=== PATIENT | male | born 1955 | race Caucasian/White ===

== ENCOUNTER 2024-04-27 11:28 | Emergency (ER) | payer MEDICARE, BC, SELFPAY ==
[2024-04-27 11:30] VITALS: BP 124/88
[2024-04-27 11:53] LABS: % Eosinophils 2.9 % (0-6); % Immature Granulocytes 0.5 % (0-0.5); % Lymphocytes 24.7 % (20.5-51.1); % Monocytes 8.1 % (1.7-9.3); % Neutrophils 62.8 % (42.2-75.2); Absolute Basophils 0.1 10^3/uL (0-0.2); Absolute Eosinophils 0.2 10^3/uL (0-0.7); Absolute Lymphocytes 1.4 10^3/uL (1.2-3.4); Absolute Monocytes 0.5 10^3/uL (0.1-0.6); Absolute Neutrophils 3.6 10^3/uL (1.4-6.5); Hemoglobin 9.2 g/dL (13.0-18.0); Mean Corp Hgb Conc. 32.9 g/dL (33.0-37.0); Mean Corpuscular Hgb 28.6 pg (27.0-31.0); Mean Platelet Volume 10.1 fL (7.4-10.4); Nucleated Red Blood Cells % 0 % (-); Platelet Count 203 10^3/uL (130-400); Red Blood Cell Count 3.22 10^6/uL (4.70-6.10); Red Cell Dist. Width 14.3 % (11.5-14.5); White Blood Cell Count 5.8 10^3/uL (4.8-10.8)
--- NOTE | 2024-04-27 12:13 | ED.GENMED ---
History of Present Illness
General
Chief Complaint: Male Genito-Urinary Symptoms
Source: patient
Exam Limitations: none
Time Seen by Provider: 04/27/24 11:53
Nursing documentation reviewed up to this point in time: agreed with
History of Present Illness
History of Present Illness:
69 Y/O M
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
afib on eliquis
here with painless hematuria since yesterdya
started just looking concentrated but then turned to blood this morning
no clots
h/o anemia, i spoke with Rn at [facility] who said his hg was 8.3 on 04/14
pt has no urologic history that is known
no abdominal pain, vomiting, diarrhea, cp, sob, retention
Past History
Past History
ED Past Medical History: Arrthythmia, GERD, HTN, Hypercholesterolemia and Other (renal failure)
Social History
Tobacco: Non-smoker
Alcohol: None
Review of Systems
Review of Systems
Allergies reviewed?: Yes
All Other Systems: Not applicable
Phy Exam
Physical Exam
Physical Exam:
GENERAL: Alert , in no apparent distress
EYE: pupils equal and reactive pale
NECK: Supple
ENT: o/p clr, mmm.
CARDIAC: Regular rate and rhythm .
LUNGS: Clear breath sounds bilaterally, no acute respiratory distress, no wheezes/rales/rhonchi
ABDOMEN: Soft, without focal tenderness, no r/g, no cvat, normal bowel sounds
, normal inspection
Hematuria no clots
NEUROLOGICAL: Alert and oriented, no focal neuro deficits
SKIN: Warm and dry, skin intact.
MUSCULOSKELETAL: Right BKA
PSYCH: Normal and appropriate interaction.
Course
Orders/Labs/Results
Orders:
Orders
04/27/24 11:40
Complete Blood Count/With Diff Urgent
04/27/24 12:07
CT Abd/pel Without Iv Or Oral Urgent
Comment:
Reason For Exam: HEMATURIA
04/27/24 12:15
Comprehensive Metabolic Panel Urgent
Urinalysis Reflex To Culture Urgent
Date Specimen was Collected: 04/27/24
Time Specimen was Collected: 11:38
Urine Microscopic Reflex Cult Urgent
04/27/24 16:28
0.9% Sodium Chloride 500 ml [Nss] 500 ml IV BOLUS
Abnormal Lab Results
04/27/24 04/27/24
11:40 12:15
RBC 3.22 L 10^6/uL
(4.70-6.10)
Hgb 9.2 L g/dL
(13.0-18.0)
Hct 28.0 L %
(39.0-52.0)
MCHC 32.9 L g/dL
(33.0-37.0)
BUN 25 H mg/dl
(9-20)
Glucose 133 H mg/dl
(70-99)
Calcium 8.1 L mg/dl
(8.4-10.2)
Albumin 2.9 L g/dl
(3.5-5.0)
Ur Occult Blood Reflex 4+ A
(Negative)
Leukocyte Esterase Rfl Trace A
(Negative)
Urine RBC >100 A /HPF
(0-2)
Urine Bacteria (Reflex) Few A
(Negative)
Urine Albumin (Reflex) 3+ A
(Neg - Trace)
04/27/24 11:40
04/27/24 12:15
Vital Signs
Initial and Last Documented VS:
Initial Vital Signs
Temp Pulse Resp BP Pulse Ox
36.3 C 90 18 124/88 99
04/27/24 11:30 04/27/24 11:30 04/27/24 11:30 04/27/24 11:30 04/27/24 11:30
Last Documented Vital Signs
Temp Pulse Resp BP Pulse Ox
36.3 C 80 18 121/76 100
04/27/24 11:30 04/27/24 13:30 04/27/24 11:30 04/27/24 18:00 04/27/24 18:00
MDM/Problems Addressed
Differential Diagnosis Includes:
kidney stone, uti, bladder ca,
MDM/Problems Addressed:
69 y/o M
h/o afib, sroke, chf, cad, CKD
here with gross hematuria since last night
no clots
on eliquis
no pain
no vomiting
stable vitals
pale but h/o anemia and hg today is 9.2 which is better than 8.3 from 04/14/24
urine looks like dark blood, thicker, without clots, not really translucent
and PVR is [address]
CT is:
High attenuation density within the renal collecting system and renal pelves bilaterally as well as layering high attenuation density in the urinary bladder most likely representing staghorn-type renal calculi small layering urinary bladder calculi,
without accompanying renal collecting system dilatation. Other etiologies such as high attenuation excreted fluid (unlikely hemorrhage) cannot be differentiated.
Diffuse thickening of the wall the urinary bladder most likely due to underdistention. Other etiology such as cystitis cannot be excluded.
pt has ruinated a few times and PVR is < 100
he has no pain or clots
no bump in cr
d/w dr abbasi who did not recommend phillips since pt is not in clot retention
recommended holding eliquis if possible for 3 dyas
will need outpatient cysto
the bladder stones do not require urgent removla
i spoke with RN at the faciliy and she will relay to the PMD;
*Critical Care Note
Total Time (30-74mins, 75-104mins- exclusive of procedures): Not Applicable
ED Attending Note
-
Portions of this chart may have been created with voice recognition software.� Occasional wrong word or��sound alike� substitutions may have occurred due to the inherent limitations of voice recognition software.
Discharge Plan
Departure
Patient Disposition: Home (Routine Discharge)
Patient with high blood pressure during this ER visit?: No
Condition: Fair
Covid-19: Not Applicable
Discharge Problem:
Hematuria
Instructions: Blood in Urine (Hematuria), Adult ED
Referrals:
Adonay Abbasi MD [Active] - Follow up in 5-7 days
Lukasz Gant MD [Family Provider] - Follow up in 2-3 days
Activity Restrictions/Additional Instructions:
HIS HEMOGLOBIN WAS 9.2 WHICH IS HIGHER THAN 2 WEEKS AGO
HOLD HIS ELIQUIS (IF THE PRIMARY DOCTOR JUANA IS OK WITH IT) FOR 3 DAYS TO SEE IF THE BLOOD CLEARS
THERE WAS NO SIGN OF INFECTION
HE IS NOT RETAINING URINE
HE HAS SOME LAYERING STONES IN HIS BLADDER
HE WILL NEED TO SEE UROLOGIST
WATCH HIM CLOSELY: REPEAT HIS CBC IN 24 HOURS.
IF HE DROPS RETURN
IF HE GOES INTO URINARY RETENTION - RETURN (SCAN HIS BLADDER AFTER VOIDING)
RETURN SOONER OR ANY CONCERNS.
Interventions
Interventions:
*Risk Screen - Suicide Last Done: 04/27/24 11:37
*General Assessment Last Done: 04/27/24 11:36
*Neglect/Abuse Screening Last Done: 04/27/24 11:37
ED- Fall Risk Assessment Last Done: 04/27/24 11:52
*ED COVID-19 Vaccine History Last Done: 04/27/24 11:36
*Nursing Disposition Last Done: 04/27/24 18:41
ED-Male Genitourinary Assessment Last Done: 04/27/24 11:52
Discharge Date and Time
Discharge Date/Time: 04/27/24 18:44
Print Language: WELSH
[2024-04-27 12:27] LABS: Urine Albumin 3+ (Neg - Trace); Urine Bilirubin Negative (Negative); Urine Character Bloody (Clear); Urine Color Brown; Urine Glucose Negative (Negative); Urine Ketone Negative (Negative); Urine Leukocyte Trace (Negative); Urine Nitrite Negative (Negative); Urine Occult Blood 4+ (Negative); Urine Urobilinogen Negative (Neg - 1+)
[2024-04-27 12:46] LABS: Urine Squamous Cell 0-2 /LPF (Few)
[2024-04-27 12:47] LABS: Urine Bacteria Few (Negative); Urine Red Blood Cell >100 /HPF (0-2); Urine White Cell 0-2 /HPF (0-5)
[2024-04-27 12:49] LABS: ALT (SGPT) 11 U/L (0-50); AST (SGOT) 19 U/L (17-59); Albumin 2.9 g/dl (3.5-5.0); Alkaline Phosphatase 102 U/L (38-126); Blood Urea Nitrogen 25 mg/dl (9-20); Calcium 8.1 mg/dl (8.4-10.2); Carbon Dioxide 27 mmol/L (22-30); Chloride 106 mmol/L (98-107); Glucose 133 mg/dl (70-99); Potassium 3.8 mmol/L (3.5-5.1); Sodium 140 mmol/L (135-145); Total Bilirubin 0.6 mg/dl (0.2-1.3); Total Protein 6.3 g/dl (6.3-8.2); eGFR > 60.00
[2024-04-27 13:00] VITALS: BP 102/69
[2024-04-27 16:10] VITALS: BP 109/68
[2024-04-27] MEDS: NSS 500 IV (16:42)
[2024-04-27 16:47] VITALS: BMI 33.5
[2024-04-27 17:00] VITALS: BP 112/69
[2024-04-27 18:00] VITALS: BP 121/76
== END 2024-04-27 18:44 | disposition home or self-care (01) ==
LOC: EMR 11:28
PROVIDERS: EMERGENCY PHYSICIAN Emergency Medicine; FAMILY PHYSICIAN Internal Medicine
DX: R31.9 Hematuria, unspecified (principal); E11.22 Type 2 diabetes mellitus with diabetic chronic kidney disease; I13.0 Hypertensive heart and chronic kidney disease with heart failure and stage 1 through stage 4 chronic kidney disease, or unspecified chronic kidney disease; I50.9 Heart failure, unspecified; I48.91 Unspecified atrial fibrillation; E78.00 Pure hypercholesterolemia, unspecified; K21.9 Gastro-esophageal reflux disease without esophagitis; N18.9 Chronic kidney disease, unspecified; Z79.01 Long term (current) use of anticoagulants; Z86.73 Personal history of transient ischemic attack (TIA), and cerebral infarction without residual deficits; Z89.511 Acquired absence of right leg below knee
CPT/HCPCS: 99284; 96360; 74176; 80053; 81003; 81015; 85025

== ENCOUNTER 2024-04-29 22:27 | Inpatient (IN) | payer BC, MEDICARE, SELFPAY ==
[2024-04-29 19:05] VITALS: BP 110/83
[2024-04-29 19:22] VITALS: BP 110/83
[2024-04-29 19:23] VITALS: BMI 28.1
[2024-04-29 19:46] LABS: % Basophils 0.5 % (0-2); % Eosinophils 3.4 % (0-6); % Immature Granulocytes 0.5 % (0-0.5); % Lymphocytes 21.2 % (20.5-51.1); % Monocytes 6.9 % (1.7-9.3); % Neutrophils 67.5 % (42.2-75.2); Absolute Eosinophils 0.2 10^3/uL (0-0.7); Absolute Lymphocytes 1.2 10^3/uL (1.2-3.4); Absolute Monocytes 0.4 10^3/uL (0.1-0.6); Absolute Neutrophils 3.7 10^3/uL (1.4-6.5); Hematocrit 24.7 % (39.0-52.0); Hemoglobin 8.2 g/dL (13.0-18.0); Mean Corp Hgb Conc. 33.2 g/dL (33.0-37.0); Mean Corpuscular Hgb 29.4 pg (27.0-31.0); Mean Corpuscular Volume 88.5 fL (80.0-94.0); Nucleated Red Blood Cells % 0 % (-); Platelet Count 193 10^3/uL (130-400); Red Blood Cell Count 2.79 10^6/uL (4.70-6.10); Red Cell Dist. Width 14.2 % (11.5-14.5); White Blood Cell Count 5.5 10^3/uL (4.8-10.8)
[2024-04-29 20:00] VITALS: BP 117/82
--- NOTE | 2024-04-29 20:03 | ED.GENMED ---
History of Present Illness
General
Chief Complaint: Abnormal Lab Value
Source: patient, ambulance crew, detention and detention records
Time Seen by Provider: 04/29/24 19:18
History of Present Illness
History of Present Illness:
69-year-old male with history of IDDM, R BKA, A-fib on Eliquis, CVA, CHF, CAD, CKD was here on 04/27/2024 for hematuria. At that time the RN at detention said his hemoglobin on 04/14 was 8.3.
Patient was here 2 days ago for painless hematuria and his hemoglobin was 9.2. Dr. Abbasi was consulted at that time and pt was to be scheduled for out pt cystoscopy. Eliquis has been held since that visit. Pt denies CP, SOB, abdominal pain,
dysuria. He was to have repeat blood work in 2 days which was today and it is reported that Hgb today was 7.6 so sent here.
Past History
Past History
ED Past Medical History: Arrthythmia, GERD, HTN, Hypercholesterolemia and Other (renal failure)
Social History
Tobacco: Non-smoker
Alcohol: None
Personal:
Living: detention
Review of Systems
Review of Systems
Allergies reviewed?: Yes
All Other Systems: ROS reviewed and negative except as documented in HPI and ROS
Constitutional: Denies fever or chills
Respiratory: Denies trouble breathing
Cardiac: Denies chest pain
ABD/GI: Denies abdominal pain, nausea, vomiting or diarrhea
: Reports dark urine; Denies dysuria, flank pain, incontinence or difficulty voiding
Musculoskeletal: Reports other (R BKA)
Phy Exam
Physical Exam
Physical Exam:
GENERAL: No acute distress. A&Ox3.
CONSTITUTIONAL: Afebrile.
EYES: clear, conjunctivae normal
ENMT: moist mucus membranes, Pharynx nl, speaks in a whisper
RESPIRATORY: Regular respirations, nonlabored, lungs clear.
CARDIOVASCULAR: Regular rate and rhythm, no murmurs, no rubs.
GI: Soft, nontender, normal BS
Rectal: Light brown soft stool, hematest positive
MUSCULOSKELETAL: Right BKA, limited movement/deconditioned. No edema well perfused.
SKIN: Warm, dry, pale
PSYCH: Normal mood and affect. Well kept, interactive and appropriate
NEUROLOGIC: Awake, alert and oriented. No focal neurological deficits
Course
Orders/Labs/Results
Orders:
Orders
04/29/24 19:39
Type And Crossmatch [Type+Screen] Urgent
Complete Blood Count/With Diff Urgent
Comprehensive Metabolic Panel Urgent
04/29/24 20:16
Bladder Scan- Treatment ONCE
04/29/24 20:19
ABO2 Urgent
BBK Wristband Number:
Associate notified that ABO2 has been ordered: [id number]
Date: 04/29/24
Time: 20:04
Dental Director ID: [id number]
Abnormal Lab Results
04/29/24
19:39
RBC 2.79 L 10^6/uL
(4.70-6.10)
Hgb 8.2 L g/dL
(13.0-18.0)
Hct 24.7 L %
(39.0-52.0)
BUN 36 H mg/dl
(9-20)
Creatinine 1.5 H mg/dL
(0.7-1.3)
Glucose 155 H mg/dl
(70-99)
Calcium 8.1 L mg/dl
(8.4-10.2)
Total Protein 6.0 L g/dl
(6.3-8.2)
Albumin 2.7 L g/dl
(3.5-5.0)
04/29/24 19:39
04/29/24 19:39
Vital Signs
Initial and Last Documented VS:
Initial Vital Signs
Temp Pulse Resp BP Pulse Ox
98.0 F 96 28 110/83 99
04/29/24 19:05 04/29/24 19:05 04/29/24 19:05 04/29/24 19:05 04/29/24 19:05
Last Documented Vital Signs
Temp Pulse Resp BP Pulse Ox
98.0 F 97 20 110/83 99
04/29/24 19:05 04/29/24 19:22 04/29/24 19:22 04/29/24 19:22 04/29/24 19:23
MDM/Problems Addressed
Differential Diagnosis Includes:
bladder malignancy, kidney stone
GI bleed
MDM/Problems Addressed:
69-year-old male with history of A-fib on Eliquis, CVA, CHF, CAD, IDDM, R BKA, CKD was here on 04/27/2024 for hematuria. At that time the RN at detention said his hemoglobin on 04/14 was 8.3.
Patient was here 2 days ago for painless hematuria and his hemoglobin was 9.2. Dr. Abbasi was consulted at that time and pt was to be scheduled for out pt cystoscopy. Eliquis has been held since that visit. Pt denies CP, SOB, abdominal pain,
dysuria. He was to have repeat blood work in 2 days which was today and it is reported that Hgb today was 7.6 so sent here.
Pt voided 100 ml dark reddish brown urine
Post void bladder scan:
CBC: Hgb 8.2 (down 2 gms from 2 days ago) otherwise unremarkable
CMP: BUN/creat 36/1.5 up from normal 2 days ago
9:00 p.m.
Rectal: Brown heme + stool
Blood consent signed and scanned into chart
Plan: Admit: GI bleed, hematuria (Eliquis has been held past 2 days)
Hospitalist notified of admission . Pt is stable.
*Critical Care Note
Total Time (30-74mins, 75-104mins- exclusive of procedures): Not Applicable
ED Attending Note
-
Portions of this chart may have been created with voice recognition software.� Occasional wrong word or��sound alike� substitutions may have occurred due to the inherent limitations of voice recognition software.
Discharge Plan
Departure
Patient Disposition: Admit
Date of Disposition: 04/29/24
Time of Disposition: 21:10
Presentation/result/management discussed w/ accepting MD/DO: Hospitalist
Condition: Fair
Discharge Problem:
Hematuria, GI bleed
Referrals:
Lukasz Gant MD [Family Provider] -
Interventions
Interventions:
*Risk Screen - Suicide Last Done: 04/29/24 19:23
*General Assessment Last Done: 04/29/24 19:23
*Neglect/Abuse Screening Last Done: 04/29/24 19:23
ED- Fall Risk Assessment Last Done: 04/29/24 19:23
*ED COVID-19 Vaccine History Last Done: 04/29/24 19:23
Discharge Date and Time
Print Language: SAMMARINESE
[2024-04-29 20:11] LABS: ALT (SGPT) 12 U/L (0-50); AST (SGOT) 20 U/L (17-59); Albumin 2.7 g/dl (3.5-5.0); Alkaline Phosphatase 94 U/L (38-126); Blood Urea Nitrogen 36 mg/dl (9-20); Calcium 8.1 mg/dl (8.4-10.2); Carbon Dioxide 26 mmol/L (22-30); Chloride 104 mmol/L (98-107); Estimated Creatinine Clearance 59 ml/min; Glucose 155 mg/dl (70-99); Potassium 3.9 mmol/L (3.5-5.1); Sodium 135 mmol/L (135-145); Total Bilirubin 0.4 mg/dl (0.2-1.3); eGFR 50.71
[2024-04-29 21:00] VITALS: BP 128/84
[2024-04-29 22:00] VITALS: BP 129/93
--- NOTE | 2024-04-29 22:18 | HPS.HSE ---
Family Physician
-
Family Physician: Lukasz Gant
Chief Complaint
-
Abnormal Labs, Dark Urine
History of Present Illness
Patient is a 69y M with PMH significant for CVA with L weakness, R BKA 10 months ago and A-Fib / Flutter who presents to ED for evaluation of continued dark urine and abnormal labs. History obtained from patient and ED / [place] records. Patient
underwent R BKA about 10 months ago - he thinks maybe this was done at [facility]. He has since been in rehab at [facility]. He states that he has had loose stools that entire time - though he reports 0-2 bowel movements per day. These are
soft or loose in nature. No gross blood or dark / tarry stools.
For the past 2 weeks, patient states that his urine has appeared dark. Over the past several days it has looked 'like coffee'. He presented to the ED here on 04/[address] scan suggesting bilateral staghorn calculi and bladder stones.
It was recommended that patient hold his Eliquis and follow-up with Urology as an outpatient.
Patient notes that he has continued to pass very dark appearing urine. He had repeat labs done this AM showing lower Hgb and was sent back to for further evaluation.
He denies any abdominal pain, flank pain, dysuria, etc.
He denies any fevers / chills.
No other current complaints or concerns.
Note that patient had baseline labs done on 04/14/24. His Hgb at that time was 8.3 g/dL. Hgb during prior ED visit was 9.2. Outpatient labs today with Hgb = 7.6. Repeat in ED this evening = 8.2.
Medical History
Past Medical History
Past Medical History: Reports Other
Additional Past Medical History:
Hypertension
ASCVD
Left Hemiparesis s/p CVA
GERD
Paroxysmal A-Fib / Flutter
CKD III
CHF - Unknown Type
DM-II
Psychiatric Disorder - Unspecified
Past Surgical History: Reports Other
Additional Past Surgical History:
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
A-Fib / Flutter Ablation
Appendectomy
ORIF LUE
Right Knee Arthroscopy
Social History
Tobacco: Non-smoker
Alcohol: None
Drug: None
Family History
Family History: Not pertinent
Allergies / Home Medications
Allergies reflects when Allergies were last updated in [facility].
Home Medications with original date entered in [facility]
Allergy/Medication List:
Allergies
Allergy/AdvReac Type Severity Reaction Status Date / Time
Penicillins Allergy Swelling Verified 04/29/24 21:30
Home Medications
acetaminophen 325 mg tablet (Tylenol) 650 mg PO Q4H PRN Temp > 100, mild pain 04/29/24
ammonium lactate 12 % lotion (AmLactin) 1 applic topical DAILY 04/29/24
apixaban 5 mg tablet (Eliquis) 5 mg PO BID 04/29/24
aripiprazole 10 mg tablet (Abilify) 10 mg PO HS 04/29/24
atorvastatin 40 mg tablet 40 mg PO HS 04/29/24
fluticasone propionate 50 mcg/actuation nasal spray,suspension 1 spray intranasal DAILY 04/29/24
insulin glargine 100 unit/mL (3 mL) subcutaneous pen 10 unit SC QPM 04/29/24
insulin lispro 100 unit/mL subcutaneous pen 1 sliding scale dose SC DIRECTED 04/29/24
loperamide 2 mg tablet (Imodium A-D) 2 mg PO Q6H PRN Diarrhea 04/29/24
losartan 50 mg tablet 50 mg PO DAILY 04/29/24
metoprolol tartrate 25 mg tablet 25 mg PO BID 04/29/24
multivitamin 1 tab PO DAILY 04/29/24
pantoprazole 40 mg tablet,delayed release 40 mg PO BID 04/29/24
thiamine HCl (vitamin B1) 100 mg tablet 200 mg PO DAILY 04/29/24
ticagrelor 90 mg tablet 90 mg PO BID 04/29/24
zinc oxide 10 % topical ointment 1 applic topical TID 04/29/24
Review of Systems
-
History Source: Patient
A 12 point ROS was completed and negative except as noted: Yes
Constitutional: Denies Fever or Chills
EENT: Reports Sore Throat and Other (loss of voice)
Respiratory: Denies Cough or Trouble Breathing
Cardiac: Denies Chest Pain or Palpitations
Abdomen/GI: Reports Diarrhea; Denies Abdominal Pain, Nausea, Vomiting, Bloody Stools or Black Stools
: Denies Dysuria, Frequency or Flank Pain
Neurological: Reports Weakness; Denies Dizzy or Headache
Physical Exam
Vital Signs
Vital Signs
Temp Pulse Resp BP Pulse Ox
98.0 F 97 20 110/83 99
04/29/24 19:05 04/29/24 19:22 04/29/24 19:22 04/29/24 19:22 04/29/24 19:23
Physical Exam
General: Other (69y M in no acute distress. Mild pallor.)
HEENT: Moist mucous membranes and PERRLA
Respiratory: Clear and Other (Few rales at R base. Otherwise clear.)
Cardiac: S1/S2, Regular Rhythm (with ectopy.) and Murmur (II/ LELAND)
GI: Soft, Non Tender, Non Distended and Normal Bowel Sounds
Musculoskeletal: No Clubbing, No Cyanosis and Other (R BKA stump well-appearing. LLE with chronic venous stasis skin changes / discloration. 1+ edema at ankle.)
Neuro: AO x 3 and Other (L weakness - chronic / unchanged per patient.)
Laboratory Results
-
04/29/24 19:39
04/29/24 19:39
Laboratory Results
Total Bilirubin 0.4 mg/dl (0.2-1.3) 04/29/24 19:39
AST 20 U/L (17-59) 04/29/24 19:39
ALT 12 U/L (0-50) 04/29/24 19:39
Alkaline Phosphatase 94 U/L (38-126) 04/29/24 19:39
Impression/Plan
-
A/P: Patient is a 69y M with PMH significant for ASCVD / prior CVA, HTN, DM-II and R BKA who presents to ED for evaluation of hematuria / anemia.
Blood Loss Anemia - Subacute
- Admit for further evaluation and treatment.
- Note that his Hgb has remained largely stable over the past month with values ranging from 7.6 to 9.2.
- Currently 8.2 which is unchanged from initial outpatient labs done 04/14.
- Patient with evident hematuria with dark / brown colored urine. No flank pain, etc.
- CT done 04/27 reviewed. ? stone burden versus blood products layering in bladder / bilateral collecting systems?
- Also noted to be hemoccult positive in the ED today and has evidence of bleeding / oozing from needle stick sites, small abrasions, etc.
- Continue to hold Eliquis.
- Would also hold ticagrelor acutely given ongoing bleeding.
- Follow H&H and consider transfusion if indicated (consent on chart).
- Check PT / PTT and consider Heme evaluation if bleeding issues persist off of antiplatelet / anticoagulant medications.
Hematuria / Kidney Stones
- CT scan as noted above.
- Urology evaluation for additional recommendations.
- Check renal US for further evaluation.
Heme Positive Stool
- Not clear to what extent this is contributing to his anemia.
- Address issues as noted above and continue to monitor H&H.
- Eventual GI evaluation likely reasonable.
CHRISTOPH on CKD III
- Unclear baseline renal function with SCr values varying from 1.22 to 1.77 over the past month.
- Currently 1.5.
- Hold losartan acutely.
- IVFs overnight and follow for changes.
Paroxysmal Atrial Fibrillation / Flutter
- Patient states that he has had an ablation in the recent past - though he is not certain where this was done.
- Hold Eliquis given bleeding as noted above.
- Monitor on telemetry.
- Continue metoprolol.
ASCVD / CVA
- Stable. No new neurologic deficits.
- Holding ticagrelor acutely given bleeding as noted above.
- Continue BP control, statin, etc.
- Follow for any new clinical changes.
DM-II
- Stable. Hold standing medications acutely.
- Follow glucose and cover with SSI as needed.
- Update A1C.
s/p R BKA
- Presumably due to osteomyelitis.
- Appears to be well-healed with no evidence of skin breakdown, infection, etc.
DVT Prophylaxis: SCD to the LLE. Avoid pharmacologic therapy given bleeding.
Code Status: DNR per NH record, POLST, etc.
[2024-04-29 23:00] VITALS: BP 135/91
[2024-04-30] VITALS (9 sets, daily range): BP systolic 118–147; BP diastolic 77–99; BMI 27.2; BMI 27.5
[2024-04-30] MEDS: LR 1000 IV ×2 (03:25→15:36)
--- NOTE | 2024-04-30 04:01 | W.PN.UPDATE ---
Update Note
Progress Note Update
Patient has decided he wants to be resuscitated. DNR changed to Full code.
[2024-04-30 07:19] LABS: Hematocrit 24.9 % (39.0-52.0); Hemoglobin 8.2 g/dL (13.0-18.0); Mean Corp Hgb Conc. 32.9 g/dL (33.0-37.0); Mean Corpuscular Hgb 28.7 pg (27.0-31.0); Mean Corpuscular Volume 87.1 fL (80.0-94.0); Mean Platelet Volume 10.3 fL (7.4-10.4); Platelet Count 202 10^3/uL (130-400); Red Blood Cell Count 2.86 10^6/uL (4.70-6.10); Red Cell Dist. Width 14.1 % (11.5-14.5); White Blood Cell Count 5.9 10^3/uL (4.8-10.8)
[2024-04-30 07:29] LABS: INR 1.24; PT 15.9 Sec (11.4-14.6)
[2024-04-30 07:30] LABS: APTT 38.2 Sec (23.4-35.0)
[2024-04-30 07:55] LABS: Blood Urea Nitrogen 34 mg/dl (9-20); Calcium 8.3 mg/dl (8.4-10.2); Carbon Dioxide 23 mmol/L (22-30); Chloride 106 mmol/L (98-107); Estimated Creatinine Clearance 59 ml/min; Glucose 129 mg/dl (70-99); Iron 55 ug/dl (49-181); Potassium 3.7 mmol/L (3.5-5.1); Sodium 138 mmol/L (135-145); eGFR 50.71
[2024-04-30 08:04] LABS: Percent Saturation 31 % (20-50); Total Iron Binding Capacity 174 ug/dl (261-462)
[2024-04-30] MEDS: LOPRESSOR 25 MG PO ×2 (08:56→20:10)
[2024-04-30] MEDS: VITAMIN B1 200 MG PO (08:56)
[2024-04-30 08:57] LABS: Glucose - Point of Care 137 mg/dl (70-99)
--- NOTE | 2024-04-30 10:40 | CM ---
CM following re: discharge planning.
Reviewed pt's chart, met with pt and spoke to pt's spouse Carolyn over the phone.
Pt is a 69 year old male, admitted with primary dx of Blood Loss Anemia.
Pt is not a great historian, information obtained from pt's spouse Carolyn. 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 Per spouse, a plan is for pt to return back to [facility]
SNF for a LTC when medically stable.
CM spoke to [facility] SN[facility] liaison and she confirmed that pt is a LTC resident, on bed hold and pt will be accepted back when medically stable.
PCP: Lukasz Gant
Pharmacy: [facility]
D/C plan: return back to [facility] for a termite control representative care.
CM will follow with discharge plan updates as hospitalization progresses
--- NOTE | 2024-04-30 11:09 | W.PN.HOSP.TC ---
Addendum entered and electronically signed by Karl Rouse MD 04/30/24 13:37:
No surgical intervention at this time as per urology. Will restart diet. Check hemoglobin in the morning. Continue to hold Eliquis and Brilinta. Likely discharge in 24-48 hours depending on hemoglobin/recurrent bleeding.
Original Note:
Today's Communication/Plan
-
see bold
Assessment / Plan
Assessment / Plan
69y M with PMH significant for ASCVD / prior CVA, HTN, DM-II and R BKA who presents to ED for evaluation of hematuria / anemia.
Gen: NAD, Awake and alert, appears chronically ill
Eyes: EOMI, PERRLA, no scleral icterus.
Neck: supple.
CV: RRR, +S1/S2, no m/r/g.
Resp: CTAB, no rales, wheezes, or rhonchi.
Abd: +BS, soft, NT, ND
Skin: No rashes.
Neuro: CN 2-12 intact, non-focal.
Psych: Normal mood and affect.
CT A/P 04/27/24: High attenuation density within the renal collecting system and renal pelves bilaterally as well as layering high attenuation density in the urinary bladder most likely representing staghorn-type renal calculi small layering urinary
bladder calculi, without accompanying renal collecting system dilatation. Other etiologies such as high attenuation excreted fluid (unlikely hemorrhage) cannot be differentiated. Diffuse thickening of the wall the urinary bladder most likely due to
underdistention. Other etiology such as cystitis cannot be excluded. Likely scratch that included portions of the right lower chest likely representing partially calcified pleural thickening and accompanying tiny possibly loculated pleural effusion.
Renal U/S:
1. Bilateral nonobstructing renal calculi as described. No almaz hydronephrosis.
2. Layering debris within the urinary bladder. Bladder calculi are not excluded.
Subacute Blood Loss Anemia:
-Hb has remained largely stable over the past month with values ranging from 7.6 to 9.2. Hb stable. Cont to trend Hb.
-Patient with evident hematuria with dark / brown colored urine. No flank pain, etc.
-Eliquis and Brilinta contributed to subacute blood loss anemia. Eliquis has been on hold since prior ED visit 04/27/24. Brilinta held on admission.
-CT A/P above: ? stone burden versus blood products layering in bladder / bilateral collecting systems?
-Renal U/S without hydro
-also noted to be Hemoccult positive in the ED 04/29/24 and has evidence of bleeding / oozing from needle stick sites, small abrasions, etc.
-c/s Uro and, depending on Uro's eval, may need to c/s GI
Paroxysmal Atrial Fibrillation/Flutter:
-Patient states that he has had an ablation in the recent past - though he is not certain where this was done.
-Holding Eliquis as above
-cont BB
Other problems:
CAD: Brilinta on hold with subacute blood loss anemia. cont statin/BB
h/o CVA: Brilinta on hold with subacute blood loss anemia. cont statin.
DM2: check a1c, SSI/accuchecks
CKD3a (CHRISTOPH has been ruled out)
s/p R BKA, presumably due to osteomyelitis.
DVT Prophylaxis: SCD to the LLE. Avoid pharmacologic therapy given bleeding.
FULL CODE
Total time spent on today's encounter was 50 minutes which included time spent in counseling the patient/family regarding diagnosis and treatment plan as listed above, goals of care, and symptom management. Case was discussed with nursing staff,
specialists, and care coordinators/case management. All labs and imaging personally reviewed by me. Remainder the time spent in detailed review of previous records, lab data, imaging, and other medical provider documentation.
Anticipated Discharge: > 48 hours
Subjective/Interval History
-
Date of Service: April 30, 2024
No new complaints.
Objective Data
-
Labs:
Laboratory Results
04/30/24
06:54
WBC 5.9
Hgb 8.2 L
Hct 24.9 L
Plt Count 202
PT 15.9 H
INR 1.24
APTT 38.2 H
Sodium 138
Potassium 3.7
Chloride 106
Carbon Dioxide 23
BUN 34 H
Creatinine 1.5 H
Glucose 129 H
Calcium 8.3 L
Vital Signs:
Vital Signs
Temp Pulse Resp BP Pulse Ox
97.4 F 81 16 139/77 99
04/30/24 07:40 04/30/24 08:56 04/30/24 07:40 04/30/24 08:56 04/30/24 07:40
I&O
04/29/24 04/30/24 05/01/24
06:59 06:59 06:59
Output Total 125 / 125
Balance -125 / -125
[2024-04-30 13:22] LABS: Glycohemoglobin (HgbA1c) 6.2 % (4.0-5.6)
[2024-04-30 13:24] LABS: Glucose - Point of Care 121 mg/dl (70-99)
--- NOTE | 2024-04-30 13:32 | CONS.URO ---
Consultation
-
Performing Provider: Marysol
Reason for Consultation: Hematuria
Medical History
History of Present Illness
69M with past urologic hx of kidney stones
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
For the past 2 weeks, patient states that his urine has appeared dark. Over the past several days it has looked 'like coffee'
He presented to the ED on 04/[address] scan suggesting bilateral staghorn calculi and bladder stones
It was recommended that patient hold his Eliquis and follow-up with Urology as an outpatient.
Ticagrelor was not stopped
Patient notes that he has continued to pass very dark appearing urine. He had repeat labs done this AM showing lower Hgb and was sent back to for further evaluation.
He denies any abdominal pain, flank pain, dysuria, etc.
He denies any fevers / chills.
No other current complaints or concerns.
Note that patient had baseline labs done on 04/14/24. His Hgb at that time was 8.3 g/dL. Hgb during prior ED visit was 9.2. Outpatient labs today with Hgb = 7.6. Repeat in ED last night = 8.2.
As of this morning patient notes improved color of urine
Past Medical History
Past Medical History: Other (as above)
Past Surgical History: Orthopedic
Social History
Alcohol: None
Drug: None
Living: Senior Living
Family History
Family History: Reviewed & Not Pertinent
Allergies/Home Medications
Allergies
Allergy/AdvReac Type Severity Reaction Status Date / Time
Penicillins Allergy Swelling Verified 04/29/24 21:30
Home Medications
�Medication �Instructions �Recorded �Confirmed �Type
acetaminophen 325 mg tablet 650 mg PO Q4H PRN Temp > 100, mild 04/29/24 04/29/24 History
(Tylenol) pain
ammonium lactate 12 % lotion 1 applic topical DAILY DRY SKIN 04/29/24 04/29/24 History
(AmLactin)
apixaban 5 mg tablet (Eliquis) 5 mg PO BID Blood Clot 04/29/24 04/29/24 History
Prevention/Tx
aripiprazole 10 mg tablet (Abilify) 10 mg PO HS Mental Health/Anxiety 04/29/24 04/29/24 History
atorvastatin 40 mg tablet 40 mg PO HS High Cholesterol 04/29/24 04/29/24 History
fluticasone propionate 50 1 spray intranasal DAILY Congestion 04/29/24 04/29/24 History
mcg/actuation nasal
spray,suspension
insulin glargine 100 unit/mL (3 10 unit SC QPM Diabetes 04/29/24 04/29/24 History
mL) subcutaneous pen
insulin lispro 100 unit/mL 1 sliding scale dose SC 04/29/24 04/29/24 History
subcutaneous pen DIRECTED Diabetes
loperamide 2 mg tablet (Imodium 2 mg PO Q6H PRN Diarrhea 04/29/24 04/29/24 History
A-D)
losartan 50 mg tablet 50 mg PO DAILY Blood Pressure 04/29/24 04/29/24 History
metoprolol tartrate 25 mg tablet 25 mg PO BID Blood Pressure 04/29/24 04/29/24 History
multivitamin 1 tab PO DAILY Supplement 04/29/24 04/29/24 History
pantoprazole 40 mg tablet,delayed 40 mg PO BID GERD 04/29/24 04/29/24 History
release
thiamine HCl (vitamin B1) 100 mg 200 mg PO DAILY Supplement 04/29/24 04/29/24 History
tablet
ticagrelor 90 mg tablet 90 mg PO BID Blood Clot 04/29/24 04/29/24 History
Prevention/Tx
zinc oxide 10 % topical ointment 1 applic topical TID Skin Issues 04/29/24 04/29/24 History
Physical Exam
Vital Signs
Vital Signs
Temp Pulse Resp BP Pulse Ox
98.2 F 96 18 131/84 99
04/30/24 11:25 04/30/24 11:25 04/30/24 11:25 04/30/24 11:25 04/30/24 11:25
Lab / Testing Results
Laboratory Results
04/30/24 06:54
04/30/24 06:54
Physical Exam
General: Well Developed, Well Nourished and No Apparent Distress
Respiratory: Clear and Non Labored Respirations
GI: Soft, Non Tender and Non Distended
Neuro: AO x 3
Psych: Calm and Intact Judgement
Assessment / Plan
-
69M with gross hematuria of unclear source
CT showing possible bilateral staghorn renal stones and dependent bladder debris vs stones
Chronic anemia and admitted for fluctuating hemoglobin
- Low suspicion for significant active bleeding - stable HGB which is at his baseline from 04/14, as well as no visible bright red blood in urine at any time
- Persistent dark urine suggests lysing/breakdown of clot from a prior bleeding episode
- Densities on CT may be stones in kidneys and bladder vs dense calcified debris given dependent nature
- Will need eventual cystoscopy and bilateral ureteroscopy to evaluate bladder and kidneys for source of hematuria and clear stones
- Hold all blood thinners/antiplatelet for 1 week
- Outpatient follow up to arrange surgery
- No hydronephrosis to suggest obstruction as a cause of CHRISTOPH
- Moderate urinary retention 200cc is likely chronic, without symptoms that are bothersome to patient
- Trend renal function
[2024-04-30 16:19] LABS: Glucose - Point of Care 144 mg/dl (70-99)
[2024-04-30] MEDS: NOVOLOG FLEXPEN-LOW RESISTANCE SC (16:19)
[2024-04-30] MEDS: ABILIFY 10 MG PO (20:16)
[2024-04-30] MEDS: LIPITOR 40 MG PO (20:16)
[2024-04-30 21:10] LABS: Glucose - Point of Care 224 mg/dl (70-99)
[2024-05-01] VITALS (8 sets, daily range): BP systolic 144–173; BP diastolic 73–108; BMI 27.5
--- NOTE | 2024-05-01 00:08 | PTCARENOTE ---
Pt changed code status on 04/30/24 to Full Code from DNR. Purple bracelet removed.
[2024-05-01] MEDS: LR 1000 IV ×3 (00:40→17:34)
--- NOTE | 2024-05-01 06:04 | PTCARENOTE ---
Patient refusing to be turned and changed throughout most of the shift, verbally abusive to staff. Tells staff to leave him 'the fuck alone and get away' from him. Patient found dry heaving around 0400. Spitting up small amounts of clear emesis. Pt
refused any medications to alleviate the N/V. Pt found to have large amounts of liquid stools as well. TRANSIT BUS DRIVER aware. Placed an Urgent order for Norovirus by PCR. Nursing surgical supervisor and staff aware. Call perez is within reach.
[2024-05-01 07:15] LABS: Glucose - Point of Care 222 mg/dl (70-99)
--- NOTE | 2024-05-01 07:59 | W.PN.HOSP.TC ---
Today's Communication/Plan
-
see bold
Assessment / Plan
Assessment / Plan
69y M with PMH significant for ASCVD / prior CVA, HTN, DM-II and R BKA who presents to ED for evaluation of hematuria / anemia.
Gen: NAD, Awake and alert, appears chronically ill
Eyes: EOMI, PERRLA, no scleral icterus.
Neck: supple.
CV: Tachycardic, irregularly irregular, +S1/S2, no m/r/g.
Resp: CTAB anteriorly, no rales, wheezes, or rhonchi.
Abd: Remains +BS, soft, NT, ND
Skin: No rashes.
Neuro: CN 2-12 intact, non-focal.
Psych: Normal mood and affect.
CT A/P 04/27/24: High attenuation density within the renal collecting system and renal pelves bilaterally as well as layering high attenuation density in the urinary bladder most likely representing staghorn-type renal calculi small layering urinary
bladder calculi, without accompanying renal collecting system dilatation. Other etiologies such as high attenuation excreted fluid (unlikely hemorrhage) cannot be differentiated. Diffuse thickening of the wall the urinary bladder most likely due to
underdistention. Other etiology such as cystitis cannot be excluded. Likely scratch that included portions of the right lower chest likely representing partially calcified pleural thickening and accompanying tiny possibly loculated pleural effusion.
Renal U/S:
1. Bilateral nonobstructing renal calculi as described. No almaz hydronephrosis.
2. Layering debris within the urinary bladder. Bladder calculi are not excluded.
Subacute Blood Loss Anemia:
-Hb has remained largely stable over the past month with values ranging from 7.6 to 9.2. Hb stable. Cont to trend Hb.
-Patient with evident hematuria with dark / brown colored urine. No flank pain, etc.
-Eliquis and Brilinta contributed to subacute blood loss anemia. Eliquis has been on hold since prior ED visit 04/27/24. Brilinta held on admission.
-CT A/P above, findings unlikely hemorrhage
-Renal U/S without hydro
-also noted to be Hemoccult positive in the ED 04/29/24 and has evidence of bleeding / oozing from needle stick sites, small abrasions, etc.
-Urology does not recommend any surgical intervention at this time
-with coronary stenting (pt's states July or August 2023, unsure of where it was done but she thinks [facility]') will restart Brilinta and assess for recurrent/worsening hematuria. Records have been requested.
Paroxysmal Atrial Fibrillation/Flutter:
-Patient states that he has had an ablation in the recent past - though he is not certain where this was done.
-Holding Eliquis as above
-cont BB
Other problems:
CAD: Brilinta on hold with subacute blood loss anemia. cont statin/BB
h/o CVA: Brilinta was on hold with subacute blood loss anemia, restart as above. cont statin.
DM2: a1c 6.2%, SSI/accuchecks
CKD3a (CHRISTOPH has been ruled out)
s/p R BKA, presumably due to osteomyelitis.
DVT Prophylaxis: SCD to the LLE. Avoid pharmacologic therapy given bleeding.
FULL CODE
Total time spent on today's encounter was 51 minutes which included time spent in counseling the patient/family regarding diagnosis and treatment plan as listed above, goals of care, and symptom management. Case was discussed with nursing staff,
specialists, and care coordinators/case management. All labs and imaging personally reviewed by me. Remainder the time spent in detailed review of previous records, lab data, imaging, and other medical provider documentation.
Anticipated Discharge: 24 - 48 hours
Subjective/Interval History
-
Date of Service: May 01, 2024
Patient is a very poor historian. He states he is been vomiting but nursing states he has been spitting up saliva and mucus. 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
Objective Data
-
Vital Signs:
Vital Signs
Temp Pulse Resp BP Pulse Ox
98.0 F 96 18 144/90 99
05/01/24 03:27 05/01/24 03:27 05/01/24 03:27 05/01/24 04:07 05/01/24 03:27
I&O
04/30/24 05/01/24 05/02/24
06:59 06:59 06:59
Intake Total 2640 / 2640
Output Total 125 / 125
Balance 2515 / 2515
[2024-05-01] MEDS: VITAMIN B1 200 MG PO (09:00)
[2024-05-01] MEDS: BRILINTA 90 MG PO ×2 (09:00→21:04)
[2024-05-01] MEDS: LOPRESSOR 25 MG PO ×2 (09:00→21:05)
[2024-05-01 09:14] LABS: Glucose - Point of Care 230 mg/dl (70-99)
[2024-05-01] MEDS: NOVOLOG FLEXPEN-LOW RESISTANCE 2 UNITS SC ×3 (09:16→17:35)
--- NOTE | 2024-05-01 09:27 | PTCARENOTE ---
Pt. with brown liquid emesis at 0910, pt. reports 8 episodes of vomiting since last night. Dr. Rouse made aware. Pt. refusing to have brief changed and to be washed up at this time. No new orders at this time.
[2024-05-01] MEDS: ZOFRAN 4 MG IV ×2 (10:12→18:05)
--- NOTE | 2024-05-01 10:15 | PTCARENOTE ---
Pt. c/o n/v, zofran given as ordered. Pt. with multiple episodes of brown liquid emesis. Will continue to monitor and report on pt.
--- NOTE | 2024-05-01 11:05 | PTCARENOTE ---
Pt. n/v improved post administration of Zofran. Pt. incontinent of loose brown BM. Pt. cleansed, repositioned and stool specimen sent as ordered.
--- NOTE | 2024-05-01 11:31 | W.PN.URO.CBU ---
Today's Communication / Plan
-
Hold all blood thinners/antiplatelet for 1 week if acceptable risk
Outpatient follow up to arrange cystoscopy and bilateral ureteroscopy with clearance of staghorn renal stones vs dependent debris
Assessment / Plan
-
69M with gross hematuria of unclear source
CT showing possible bilateral staghorn renal stones and dependent bladder debris vs stones
Chronic anemia and admitted for dropping hemoglobin, though appears stable on labs done same day as admission
- Low suspicion for significant active bleeding - stable HGB which is at his baseline from 04/14, as well as no visible bright red blood in urine at any time
- Persistent dark urine suggests lysing/breakdown of clot from a prior bleeding episode
- Urine continues to clear as of 05/01
- Densities on CT may be stones in kidneys and bladder vs dense calcified debris given dependent nature
- Will need eventual cystoscopy and bilateral ureteroscopy to evaluate bladder and kidneys for source of hematuria and clear stones
- Hold all blood thinners/antiplatelet for 1 week if acceptable risk
- Outpatient follow up to arrange surgery
- No hydronephrosis to suggest obstruction as a cause of CHRISTOPH. Renal US 04/30 after start of CHRISTOPH again showed no hydronephrosis
- Moderate urinary retention 200cc is likely chronic, without symptoms that are bothersome to patient
- Trend renal function
Diagnosis
-
Date of Service: May 01, 2024
-
Patient Diagnosis:
Gross hematuria
Bladder stones vs calcified debris
Staghorn kidney stones vs calcified debris
Chronic anemia
Post Op Day:
Subjective
-
Hematuria resolved, patient reports continued clearing of urine and looks more yellow today
Some nausea/vomiting today
Objective
-
Vital Signs
Temp Pulse Resp BP Pulse Ox
97.9 F 104 14 169/108 95
05/01/24 09:19 05/01/24 09:19 05/01/24 07:30 05/01/24 09:19 05/01/24 07:30
Intake and Output
04/30/24 05/01/24 05/02/24
06:59 06:59 06:59
Intake Total 2640 / 2640
Output Total 125 / 125
Balance 2515 / 2515
Intake:
Oral fluids 340 / 340
IV fluids (Total) 2300 / 2300
Output:
Urine, Voided 125 / 125
Other:
How many times incontinent 2
SATURATED amount urine
Laboratory Results
04/30/24 06:54
04/30/24 06:54
Physical Exam
-
General - well developed, well nourished, no acute distress
Chest - clear
Abdomen - soft, non-tender
No CVAT
--- NOTE | 2024-05-01 12:09 | PTCARENOTE ---
Pt. b/p elevated 160/104 hr 108 while resting in bed, Dr. Rouse made aware. No new orders at this time.
[2024-05-01 12:10] LABS: Glucose - Point of Care 244 mg/dl (70-99)
--- NOTE | 2024-05-01 14:00 | PTCARENOTE ---
Received patient from [facility]. Patient oriented and flat. Patient c/o nausea and just vomited. Patient incontinent of large loose stool. Patient turned with assist x2. Call perez in reach.
--- NOTE | 2024-05-01 14:15 | PTCARENOTE ---
Pt. transferred to [facility], report given to ALMA Stein. All belongings sent with pt.
[2024-05-01 17:33] LABS: Glucose - Point of Care 229 mg/dl (70-99)
--- NOTE | 2024-05-01 18:19 | PTCARENOTE ---
Patient c/o nausea, refusing to eat dinner. Zofran given.
[2024-05-01] MEDS: ABILIFY 10 MG PO (21:05)
[2024-05-01] MEDS: LIPITOR 40 MG PO (21:05)
[2024-05-01 21:24] LABS: Glucose - Point of Care 182 mg/dl (70-99)
[2024-05-02] VITALS (8 sets, daily range): BP systolic 125–152; BP diastolic 71–105; BMI 28.3; BMI 28.7
[2024-05-02] MEDS: LR 1000 IV ×2 (03:19→13:10)
[2024-05-02 08:32] LABS: Glucose - Point of Care 202 mg/dl (70-99)
--- NOTE | 2024-05-02 09:01 | W.PN.HOSP.TC ---
Today's Communication/Plan
-
see bold
Assessment / Plan
Assessment / Plan
69y M with PMH significant for ASCVD / prior CVA, HTN, DM-II and R BKA who presents to ED for evaluation of hematuria / anemia.
Sepsis
Acute hypoxic respiratory failure
-05/02 Developed fever, leukocytosis, with hypoxia requiring 6 L of oxygen
-Covid/flu neg
-Check UA, chest CT, blood cultures
-Start empiric zosyn and doxy
-Transfer to IMU
CHRISTOPH on stage IIIa CKD
-Cr 2.0, was 1.5
-Check postvoid residual, avoid nephrotoxic drugs/NSAIDs
Subacute Blood Loss Anemia
-Hb has remained largely stable over the past month with values ranging from 7.6 to 9.2. Hb stable. Cont to trend Hb.
-Patient with evident hematuria with dark / brown colored urine. No flank pain, etc.
-Eliquis and Brilinta contributed to subacute blood loss anemia. Eliquis has been on hold since prior ED visit 04/27/24. Brilinta held on admission, resumed 05/[address] A/P above, findings unlikely hemorrhage
-Renal U/S without hydro
-Also noted to be Hemoccult positive in the ED 04/29/24 and has evidence of bleeding / oozing from needle stick sites, small abrasions, etc.
-Urology does not recommend any surgical intervention at this time
-With coronary stenting (pt's states August 2023 poss at [facility]) Brilinta resumed 05/01 AM with no recurrence of hematuria
Paroxysmal Atrial Fibrillation/Flutter:
-Patient states that he has had an ablation in the recent past - though he is not certain where this was done.
-Holding Eliquis as above
-Cont BB
Subacute bilateral upper extremity tremors
-Present for 2 months per
-Consult neurology
Recent norovirus gastroenteritis
-Tested positive for norovirus 1/26
-Continue supportive care
Other problems:
CAD: Brilinta/statin/BB
h/o CVA: Brilinta/ statin.
DM2: a1c 6.2%, SSI/accuchecks
S/p R BKA, presumably due to osteomyelitis.
DVT Prophylaxis: SCD to the LLE. Avoid pharmacologic therapy given bleeding.
Full Code
Dispo: from [facility]
Updated on phone 05/02
Total time spent to see the patient on the floor, examine the patient, review data and lab results, discuss treatment plan with patient, nursing staff around 55 minutes.
Physical exam
Gen: NAD, Awake and alert, appears chronically ill
Eyes: EOMI, PERRLA, no scleral icterus.
Neck: supple.
CV: Tachycardic, irregularly irregular, +S1/S2, no m/r/g.
Resp: CTAB anteriorly, no rales, wheezes, or rhonchi.
Abd: Remains +BS, soft, NT, ND
Skin: No rashes.
Msk: R BKA noted
Msk: Bilateral shaking of upper extremities
Anticipated Discharge: > 48 hours
Subjective/Interval History
-
Date of Service: May 02, 2024
Patient complained of dry heaving in the morning. No vomiting. After being seen on rounds, he developed a fever and became hypoxic, currently on 15 L nonrebreather. Denies chest pain, denies shortness of breath, denies coughing.
Objective Data
-
Vital Signs:
Vital Signs
Temp Pulse Resp BP Pulse Ox
98.2 F 124 20 150/105 93
05/02/24 07:35 05/02/24 07:35 05/02/24 07:35 05/02/24 07:35 05/02/24 07:35
I&O
05/01/24 05/02/24 05/03/24
06:59 06:59 06:59
Intake Total 2640 / 2640 1180 / 1180
Output Total 125 / 125
Balance 2515 / 2515 1180 / 1180
[2024-05-02] MEDS: BRILINTA 90 MG PO ×2 (09:36→20:21)
[2024-05-02] MEDS: LOPRESSOR 25 MG PO ×2 (09:37→20:20)
[2024-05-02] MEDS: VITAMIN B1 200 MG PO (09:41)
[2024-05-02] MEDS: NOVOLOG FLEXPEN-LOW RESISTANCE 2 UNITS SC ×3 (09:43→17:21)
--- NOTE | 2024-05-02 10:48 | CM ---
manager terminal reviewed patient's chart and met with patient and patient resides at [facility], patient with CVA with left sided weakness, and Right BKA. Plan is for patient to return to [facility].
[facility]
Report [phone]

Plan; Patient to return to [facility].
[2024-05-02 12:13] LABS: Glucose - Point of Care 206 mg/dl (70-99)
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
[2024-05-02] MEDS: TYLENOL 650 MG PO (13:06)
[2024-05-02 13:15] LABS: COVID-19 Antigen Negative (Negative)
--- NOTE | 2024-05-02 13:23 | STATUS ---
SITUATION:
BACKGROUND:
ASSESSMENT:
RECOMMENDATION:
Patient with temp 102.7 degrees F and room air POX 86%. Nasal cannula O2 attempted but patient is an intermittent mouth breather; POX only up to 91% on 6L. Non-rebreather mask applied and POX now at 97%. Dr. Dixon notified.
[2024-05-02 13:46] LABS: Blood Urea Nitrogen 38 mg/dl (9-20); Calcium 8.6 mg/dl (8.4-10.2); Carbon Dioxide 20 mmol/L (22-30); Chloride 103 mmol/L (98-107); Estimated Creatinine Clearance 44 ml/min; Glucose 212 mg/dl (70-99); Potassium 4.1 mmol/L (3.5-5.1); Sodium 137 mmol/L (135-145); eGFR 35.91
[2024-05-02 14:06] LABS: Hematocrit 26.9 % (39.0-52.0); Hemoglobin 8.9 g/dL (13.0-18.0); Mean Corp Hgb Conc. 33.1 g/dL (33.0-37.0); Mean Corpuscular Hgb 28.9 pg (27.0-31.0); Mean Corpuscular Volume 87.3 fL (80.0-94.0); Mean Platelet Volume 9.7 fL (7.4-10.4); Platelet Count 284 10^3/uL (130-400); Red Blood Cell Count 3.08 10^6/uL (4.70-6.10); Red Cell Dist. Width 14.6 % (11.5-14.5); White Blood Cell Count 16.8 10^3/uL (4.8-10.8)
--- NOTE | 2024-05-02 14:30 | PTCARENOTE ---
Patient asleep in bed with non-rebreather mask on. Woke patient up and offered assistance with lunch tray that was recently delivered bedside, but patient verbalized 'No.' Patient maintained in bed with call perez at reach. Await IMU bed per order.
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
[2024-05-02 15:59] LABS: Urine Albumin 1+ (Neg - Trace); Urine Bilirubin 1+ (Negative); Urine Character Slightly Cloudy (Clear); Urine Color Yellow; Urine Glucose Trace (Negative); Urine Ketone Trace (Negative); Urine Leukocyte Trace (Negative); Urine Nitrite Negative (Negative); Urine Occult Blood 4+ (Negative); Urine Specific Gravity 1.015 (<1.030); Urine Urobilinogen Negative (Neg - 1+)
--- NOTE | 2024-05-02 16:15 | PTCARENOTE ---
Report given to Mitra in IMU for transfer to higher level of care per physician order.
[2024-05-02 16:27] LABS: Urine Amorphous Seen; Urine Red Blood Cell >100 /HPF (0-2)
[2024-05-02 16:28] LABS: Urine Bacteria Moderate (Negative); Urine White Cell 0-2 /HPF (0-5)
[2024-05-02] MEDS: VIBRAMYCIN 100 MG PO ×2 (16:29→20:21)
[2024-05-02] MEDS: STERILE WATER FOR INJECTION 10 ML IV (16:30)
[2024-05-02] MEDS: FLUSH (NSS) 1 FLUSH IV ×2 (16:31)
[2024-05-02] MEDS: ROCEPHIN 1000 MG IV (16:33)
[2024-05-02 17:29] LABS: Glucose - Point of Care 217 mg/dl (70-99)
--- NOTE | 2024-05-02 19:41 | PTCARENOTE ---
Rec'd on transfer from 4th floor. Weaned O2 to 3LNC. Sat 997%. Pt transported for CT of the chest. vital signs stable. Pt resting comfortable. Fever down. hygiene care provided, Remains on Enhanced precautions
[2024-05-02] MEDS: LIPITOR 40 MG PO (21:37)
[2024-05-02] MEDS: ABILIFY 10 MG PO (21:37)
[2024-05-02 21:42] LABS: Glucose - Point of Care 231 mg/dl (70-99)
[2024-05-02 22:09] LABS: Ammonia < 9 umol/L (9-30)
[2024-05-02 22:19] LABS: Creatine Phosphokinase 58 U/L (55-170)
[2024-05-03] VITALS (12 sets, daily range): BP systolic 114–155; BP diastolic 67–106; BMI 28.5
[2024-05-03] MEDS: LR 1000 IV (00:12)
--- NOTE | 2024-05-03 00:21 | PTCARENOTE ---
Assumed care of pt from tammie RN. Pt ox3 and drowsy. NSR on monitor. 94% on RA. normothermic. Hygiene completed. LR infusing at 100mL/hr. Pt resting in bed with call perez in reach.
[2024-05-03 04:11] LABS: Hematocrit 25.8 % (39.0-52.0); Hemoglobin 8.3 g/dL (13.0-18.0); Mean Corp Hgb Conc. 32.2 g/dL (33.0-37.0); Mean Corpuscular Hgb 28.3 pg (27.0-31.0); Mean Corpuscular Volume 88.1 fL (80.0-94.0); Mean Platelet Volume 10.1 fL (7.4-10.4); Platelet Count 239 10^3/uL (130-400); Red Blood Cell Count 2.93 10^6/uL (4.70-6.10); Red Cell Dist. Width 14.5 % (11.5-14.5); White Blood Cell Count 13.6 10^3/uL (4.8-10.8)
[2024-05-03 04:33] LABS: Blood Urea Nitrogen 45 mg/dl (9-20); Calcium 8.5 mg/dl (8.4-10.2); Carbon Dioxide 22 mmol/L (22-30); Chloride 104 mmol/L (98-107); Estimated Creatinine Clearance 44 ml/min; Glucose 230 mg/dl (70-99); Potassium 4.1 mmol/L (3.5-5.1); Sodium 136 mmol/L (135-145); eGFR 35.91
[2024-05-03 04:46] LABS: Procalcitonin 4.67 ng/ml (0.0-0.25)
[2024-05-03 07:55] LABS: Glucose - Point of Care 223 mg/dl (70-99)
[2024-05-03] MEDS: VITAMIN B1 200 MG PO (08:33)
[2024-05-03] MEDS: VIBRAMYCIN 100 MG PO ×2 (08:33→21:37)
[2024-05-03] MEDS: BRILINTA 90 MG PO ×2 (08:33→21:38)
[2024-05-03] MEDS: LOPRESSOR 25 MG PO (08:33)
[2024-05-03] MEDS: NOVOLOG FLEXPEN-LOW RESISTANCE 2 UNITS SC ×3 (08:34→16:18)
--- NOTE | 2024-05-03 09:02 | W.PN.HOSP.TC ---
Today's Communication/Plan
-
Stable for telemetry
Assessment / Plan
Assessment / Plan
69y M with PMH significant for ASCVD / prior CVA, HTN, DM-II and R BKA who presents to ED for evaluation of hematuria / anemia.
Sepsis
Community-acquired pneumonia
Acute hypoxic respiratory failure
-05/02 Developed fever, leukocytosis, with hypoxia requiring NRB
-Covid/flu neg, chest CT shows pneumonia
-Continue zosyn and doxy D2
-Initially requiring 15 L nonrebreather, now on room air
CHRISTOPH on stage IIIa CKD
-Cr 2.0, was 1.5, was 1.3, patient has been voiding
-PVR's have been ok, renal ultrasound negative for hydronephrosis
-Check urine Na/Cr/eosinophils, c/s nephro, avoid nephrotoxic drugs/NSAIDs
Subacute Blood Loss Anemia
-Hb has remained largely stable over the past month with values ranging from 7.6 to 9.2. Hb stable. Cont to trend Hb.
-Patient with evident hematuria with dark / brown colored urine. No flank pain, etc.
-Eliquis and Brilinta contributed to subacute blood loss anemia. Eliquis has been on hold since prior ED visit 04/27/24. Brilinta held on admission, resumed 05/[address] A/P above, findings unlikely hemorrhage
-Renal U/S without hydro
-Also noted to be Hemoccult positive in the ED 04/29/24 and has evidence of bleeding / oozing from needle stick sites, small abrasions, etc.
-Urology does not recommend any surgical intervention at this time
-With coronary stenting (pt's states August 2023 poss at [facility]) Brilinta resumed 05/01 AM with no recurrence of hematuria
Paroxysmal Atrial Fibrillation/Flutter:
-Patient states that he has had an ablation in the recent past - though he is not certain where this was done.
-Holding Eliquis as above
-Patient is tachycardic, increase metoprolol to tartrate from 25 mg twice a day to 50 mg every 6 hours
Subacute bilateral upper extremity tremors
-Present for 2 months per
-Appreciate neurology input, suspect medication induced Parkinsonism
-Recommend avoiding dopamine blocking agents
Acute on chronic multifactorial encephalopathy
-Supportive care
Recent norovirus gastroenteritis
-Tested positive for norovirus 05/01
-Continue supportive care
Other problems:
CAD: Brilinta/statin/BB
h/o CVA: Brilinta/ statin.
DM2: a1c 6.2%, SSI/accuchecks
S/p R BKA in August 2023, presumably due to osteomyelitis.
DVT Prophylaxis: SCD to the LLE. Avoid pharmacologic therapy given bleeding.
Full Code
Dispo: from [facility]
Updated on phone 05/03
Total time spent to see the patient on the floor, examine the patient, review data and lab results, discuss treatment plan with patient, nursing staff around 52 minutes.
Physical exam
Gen: NAD, Awake and alert, appears chronically ill
Eyes: EOMI, PERRLA, no scleral icterus.
Neck: supple.
CV: Tachycardic, irregularly irregular, +S1/S2, no m/r/g.
Resp: CTAB anteriorly, no rales, wheezes, or rhonchi.
Abd: Remains +BS, soft, NT, ND
Skin: No rashes.
Msk: R BKA noted
Neuro: Bilateral shaking of upper extremities
Cognitive impairment noted
Anticipated Discharge: 24 - 48 hours
Subjective/Interval History
-
Date of Service: May 03, 2024
Patient complains of coughing. He denies shortness of breath, denies palpitations. Continues to feel nauseous, no vomiting. Fever resolved.
Objective Data
-
Labs:
Laboratory Results
05/03/24
03:35
WBC 13.6 H
Hgb 8.3 L
Hct 25.8 L
Plt Count 239
Sodium 136
Potassium 4.1
Chloride 104
Carbon Dioxide 22
BUN 45 H
Creatinine 2.0 H
Glucose 230 H
Calcium 8.5
Vital Signs:
Vital Signs
Temp Pulse Resp BP Pulse Ox
99.4 F 142 25 138/106 97
05/03/24 07:11 05/03/24 08:33 05/03/24 06:13 05/03/24 08:33 05/03/24 06:13
I&O
05/02/24 05/03/24 05/04/24
06:59 06:59 06:59
Intake Total 1180 / 1180 2940 / 2940
Output Total 400 / 400
Balance 1180 / 1180 2540 / 2540
[2024-05-03 12:05] LABS: Glucose - Point of Care 235 mg/dl (70-99)
[2024-05-03] MEDS: NSS 1000 IV (13:34)
[2024-05-03] MEDS: LOPRESSOR 50 MG PO ×3 (13:34→23:59)
--- NOTE | 2024-05-03 14:25 | PTCARENOTE ---
Report called to Donna MARQUEZ [facility] [place]. Patient sent to MRI first then to new room 2127.
[2024-05-03 15:51] LABS: Glucose - Point of Care 214 mg/dl (70-99)
[2024-05-03] MEDS: STERILE WATER FOR INJECTION 10 ML IV (16:12)
[2024-05-03] MEDS: ROCEPHIN 1000 MG IV (16:12)
[2024-05-03] MEDS: FLUSH (NSS) IV ×2 (16:27→16:28)
--- NOTE | 2024-05-03 16:58 | W.CON.NEPH ---
Consultation
-
Date/Time Consultation Requested: 05/03/2024 3 PM
Date/Time Consultation Performed: 05/03/2024 5 PM
Requesting Provider: Dr. Barber
Performing Provider: Dr. Zamora
Reason for Consultation: CHRISTOPH
Medical History
-
Chief Complaint: Abnormal labs
History of Present Illness:
This is a 69-year-old gentleman who has history of stroke with left-sided residual weakness as well as right BKA. He has A-fib a flutter on anticoagulation. He also has hyperlipidemia on statin therapy and diabetes on insulin therapy. He is on a
multidrug regimen for hypertension. Medical issues have primarily been stable. He was recently in the emergency room with loose stools which he says has been present for up to a year. Recently however the urine became darker and he had presented
to the emergency room. CT scan suggested bilateral staghorn calculi and bladder stones. He was subsequently released back to long term. He returns however with continued abnormalities and worsening anemia. He was admitted for further
evaluation. His creatinine at the time of admission was 1.5 and now is risen up to 2.0. His baseline is 1.0.
He has no issues with urine output. He has no pain. There is no gross hematuria. Blood pressures have been stable. He was found to have norovirus.There is also concern recently that he had mental status change.
Past Medical History
Hypertension
ASCVD
Left Hemiparesis s/p CVA
GERD
Paroxysmal A-Fib / Flutter
CKD III
CHF - Unknown Type
DM-II
Psychiatric Disorder - Unspecified
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
A-Fib / Flutter Ablation
Appendectomy
ORIF LUE
Right Knee Arthroscopy
Social History
Tobacco: Non-Smoker
Alcohol: None
Family History
Family History: Not Pertinent
Allergies / Home Medications
Allergy/AdvReac Type Severity Reaction Status Date / Time
Penicillins Allergy Swelling Verified 04/29/24 21:30
�Medication �Instructions �Recorded �Confirmed �Type
acetaminophen 325 mg tablet 650 mg PO Q4HPRN PRN Temp > 100, 04/29/24 04/30/24 History
(Tylenol) mild pain
ammonium lactate 12 % lotion 1 applic topical TID B/L LOWER 04/29/24 04/30/24 History
(AmLactin) EXTREMITES
apixaban 5 mg tablet (Eliquis) 5 mg PO BID Blood Clot 04/29/24 04/30/24 History
Prevention/Tx
aripiprazole 10 mg tablet (Abilify) 10 mg PO HS Mental Health/Anxiety 04/29/24 04/30/24 History
atorvastatin 40 mg tablet 40 mg PO HS High Cholesterol 04/29/24 04/30/24 History
fluticasone propionate 50 1 spray intranasal DAILYPRN PRN 04/29/24 04/30/24 History
mcg/actuation nasal ALLERGIES
spray,suspension
insulin glargine 100 unit/mL (3 10 unit SC HS Diabetes 04/29/24 04/30/24 History
mL) subcutaneous pen
insulin lispro 100 unit/mL 1 sliding scale dose SC AC Diabetes 04/29/24 04/30/24 History
subcutaneous pen
loperamide 2 mg tablet (Imodium 2 mg PO Q6HPRN PRN Diarrhea 04/29/24 04/30/24 History
A-D)
losartan 50 mg tablet 50 mg PO DAILY Blood Pressure 04/29/24 04/30/24 History
metoprolol tartrate 25 mg tablet 25 mg PO BID Blood Pressure 04/29/24 04/30/24 History
multivitamin 1 tab PO DAILY Supplement 04/29/24 04/30/24 History
pantoprazole 40 mg tablet,delayed 40 mg PO BID GERD 04/29/24 04/30/24 History
release
thiamine HCl (vitamin B1) 100 mg 200 mg PO DAILY Supplement 04/29/24 04/30/24 History
tablet
ticagrelor 90 mg tablet 90 mg PO BID Blood Clot 04/29/24 04/30/24 History
Prevention/Tx
zinc oxide 10 % topical ointment 1 applic topical TID B/L BUTTOCK 04/29/24 04/30/24 History
bisacodyl 10 mg rectal suppository 10 mg DC DAILYPRN PRN IF NO BM 04/30/24 04/30/24 History
(Dulcolax (bisacodyl)) AFTR MOM
magnesium hydroxide 400 mg/5 mL 2,400 mg PO DAILYPRN PRN IF NO BM 04/30/24 04/30/24 History
oral suspension (Milk of Magnesia) BY 3RD DAY
zinc oxide 10 % topical ointment 1 applic topical DAILYPRN PRN B/L 04/30/24 04/30/24 History
BUTTOCK
Review of Systems
-
Chest pain or shortness of breath. Good appetite. No thirst. Diarrhea as above
All other systems: Negative unless noted
Physical Exam
Vital Signs
Vital Signs
Temp Pulse Resp BP Pulse Ox
98.6 F 93 16 139/90 94
05/03/24 15:10 05/03/24 16:26 05/03/24 15:10 05/03/24 16:26 05/03/24 15:10
Lab Results
WBC 13.6 10^3/uL (4.8-10.8) H 05/03/24 03:35
RBC 2.93 10^6/uL (4.70-6.10) L 05/03/24 03:35
Hgb 8.3 g/dL (13.0-18.0) L 05/03/24 03:35
Hct 25.8 % (39.0-52.0) L 05/03/24 03:35
Plt Count 239 10^3/uL (130-400) 05/03/24 03:35
Sodium 136 mmol/L (135-145) 05/03/24 03:35
Potassium 4.1 mmol/L (3.5-5.1) 05/03/24 03:35
Chloride 104 mmol/L (98-107) 05/03/24 03:35
Carbon Dioxide 22 mmol/L (22-30) 05/03/24 03:35
BUN 45 mg/dl (9-20) H 05/03/24 03:35
Creatinine 2.0 mg/dL (0.7-1.3) H 05/03/24 03:35
eGFR 35.91 05/03/24 03:35
Glucose 230 mg/dl (70-99) H 05/03/24 03:35
Calcium 8.5 mg/dl (8.4-10.2) 05/03/24 03:35
Albumin 2.7 g/dl (3.5-5.0) L 04/29/24 19:39
CT abdomen pelvis without contrast on 04/27/2024
IMPRESSION:
High attenuation density within the renal collecting system and renal pelves bilaterally as well as layering high attenuation density in the urinary bladder most likely representing staghorn-type renal calculi small layering urinary bladder calculi,
without accompanying renal collecting system dilatation. Other etiologies such as high attenuation excreted fluid (unlikely hemorrhage) cannot be differentiated.
Diffuse thickening of the wall the urinary bladder most likely due to underdistention. Other etiology such as cystitis cannot be excluded.
Physical Exam
Patient is awake alert oriented and in no distress. Mood and affect were pleasant, insight and judgment were good. Pupils are equal round and reactive to light, extraocular movements are intact, sclera were anicteric. Hearing was normal, ears and
nose are intact. Oropharynx was clear. Neck was supple with trachea midline and no thyromegaly. Heart was regular rate and rhythm without rubs. Lower extremities with 1+ edema. Lungs were clear to auscultation bilaterally and with normal
excursion. Abdomen was soft, nontender, with normal active bowel sounds, and no hepatosplenomegaly. Skin was without rash and with normal turgor.
Data Reviewed
-
CT Scan: Report Reviewed by me (Chest CT on 05/02/2024 elevated right hemidiaphragm, right lower lobe infiltrate)
Ultrasound: Report Reviewed by me (Renal ultrasound on 04/30/2024 shows right kidney 10.1 cm, left kidney 11 cm, bilateral nonobstructive stones, no hydronephrosis or mass)
Labs: Labs Reviewed by me
Old Records: Requested
Assessment/Plan
-
Assessment
CHRISTOPH
Bilateral nephrolithiasis
Hypertension
Diabetes mellitus type 2
Pneumonia/sepsis
Acute anemia
A-fib
Tremor
Norovirus
Plan
Continue IV fluids
Await fractional excretion of sodium
Check serologies at this time
Follow BMP
Most likely CHRISTOPH of sepsis
[2024-05-03 17:36] LABS: Glucose - Point of Care 188 mg/dl (70-99)
[2024-05-03] MEDS: FLOMAX 0.4 MG PO (18:02)
[2024-05-03 21:23] LABS: Glucose - Point of Care 208 mg/dl (70-99)
[2024-05-03] MEDS: LANTUS 0.08 UNITS SC (21:38)
[2024-05-03] MEDS: LIPITOR 40 MG PO (21:38)
[2024-05-04 01:11] LABS: Urine Sodium 24 mmol/L (30-90)
[2024-05-04 02:43] LABS: Body Fluid for Eosinophils No Eosinophils seen
[2024-05-04 02:50] VITALS: BP 142/92
[2024-05-04 05:51] VITALS: BMI 29.4
[2024-05-04] MEDS: LOPRESSOR PO ×3 (06:45→17:52)
[2024-05-04 07:21] LABS: Hematocrit 24.1 % (39.0-52.0); Mean Corp Hgb Conc. 33.2 g/dL (33.0-37.0); Mean Corpuscular Hgb 28.7 pg (27.0-31.0); Mean Corpuscular Volume 86.4 fL (80.0-94.0); Platelet Count 228 10^3/uL (130-400); Red Blood Cell Count 2.79 10^6/uL (4.70-6.10); Red Cell Dist. Width 14.3 % (11.5-14.5); White Blood Cell Count 10.4 10^3/uL (4.8-10.8)
[2024-05-04 07:23] LABS: Glucose - Point of Care 188 mg/dl (70-99)
[2024-05-04 07:36] LABS: Blood Urea Nitrogen 43 mg/dl (9-20); Calcium 7.9 mg/dl (8.4-10.2); Carbon Dioxide 23 mmol/L (22-30); Chloride 106 mmol/L (98-107); Estimated Creatinine Clearance 55 ml/min; Glucose 174 mg/dl (70-99); Potassium 3.5 mmol/L (3.5-5.1); Sodium 138 mmol/L (135-145); eGFR 46.93
[2024-05-04 07:39] VITALS: BP 133/89
[2024-05-04 07:48] LABS: Complement C3 101 mg/dl (88-165)
--- NOTE | 2024-05-04 08:13 | W.PN.HOSP.TC ---
Today's Communication/Plan
-
Discharged to assisted tomorrow
Assessment / Plan
Assessment / Plan
69y M with PMH significant for ASCVD / prior CVA, HTN, DM-II and R BKA who presents to ED for evaluation of hematuria / anemia.
Sepsis
Community-acquired pneumonia
Acute hypoxic respiratory failure
-05/02 Developed fever, leukocytosis, with hypoxia requiring NRB
-Covid/flu neg, chest CT shows pneumonia
-Continue zosyn and doxy D3
-Initially requiring 15 L nonrebreather, now on room air
CHRISTOPH on stage IIIa CKD
-Cr 1.6, was 2.0, was 1.5, was 1.3, patient has been voiding
-PVR's have been ok, renal ultrasound negative for hydronephrosis
-Appreciate nephrology input, suspect secondary to sepsis, avoid nephrotoxic drugs/NSAIDs
Subacute Blood Loss Anemia
-Hb has remained largely stable over the past month with values ranging from 7.6 to 9.2. Hb stable. Cont to trend Hb.
-Patient with evident hematuria with dark / brown colored urine. No flank pain, etc.
-Eliquis and Brilinta contributed to subacute blood loss anemia. Eliquis has been on hold since prior ED visit 04/27/24. Brilinta held on admission, resumed 05/[address] A/P above, findings unlikely hemorrhage
-Renal U/S without hydro
-Also noted to be Hemoccult positive in the ED 04/29/24 and has evidence of bleeding / oozing from needle stick sites, small abrasions, etc.
-Urology does not recommend any surgical intervention at this time
-With coronary stenting (pt's states August 2023 poss at [facility]) Brilinta resumed 26 AM with no recurrence of hematuria
Paroxysmal Atrial Fibrillation/Flutter:
-Patient states that he has had an ablation in the recent past - though he is not certain where this was done.
-Holding Eliquis as above
-Patient is tachycardic, increased metoprolol to tartrate from 25 mg twice a day to 50 mg every 6 hours
Subacute bilateral upper extremity tremors
-Present for 2 months per
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
-Abilify discontinued 05/03
-Recommend avoiding dopamine blocking agents
Acute on chronic multifactorial encephalopathy
-From [facility]
-Supportive care
Recent norovirus gastroenteritis
-Tested positive for norovirus 05/01
-Continue supportive care
Other problems:
CAD: Brilinta/statin/BB
h/o CVA: Brilinta/ statin.
DM2: a1c 6.2%, SSI/accuchecks
S/p R BKA in August 2023, presumably due to osteomyelitis.
DVT Prophylaxis: SCD to the LLE. Avoid pharmacologic therapy given bleeding.
Full Code
Dispo: from [facility]
Updated on phone 05/03
Total time spent to see the patient on the floor, examine the patient, review data and lab results, discuss treatment plan with patient, nursing staff around 42 minutes.
Physical exam
Gen: NAD, Awake and alert, appears chronically ill
Eyes: EOMI, PERRLA, no scleral icterus.
Neck: supple.
CV: Tachycardic, irregularly irregular, +S1/S2, no m/r/g.
Resp: CTAB anteriorly, no rales, wheezes, or rhonchi.
Abd: Remains +BS, soft, NT, ND
Ext: Right BKA noted
Left lower extremity edema noted
Neuro: Bilateral shaking of upper extremities, improved
Cognitive impairment noted
Anticipated Discharge: Within 24 hours
Subjective/Interval History
-
Date of Service: May 04, 2024
Patient reports feeling better overall. Continues to cough. Denies shortness of breath. No fever, no vomiting.
Objective Data
-
Labs:
Laboratory Results
05/04/24
06:28
WBC 10.4
Hgb 8.0 L
Hct 24.1 L
Plt Count 228
Sodium 138
Potassium 3.5
Chloride 106
Carbon Dioxide 23
BUN 43 H
Creatinine 1.6 H
Glucose 174 H
Calcium 7.9 L
Vital Signs:
Vital Signs
Temp Pulse Resp BP Pulse Ox
97.8 F 93 14 133/89 93
05/04/24 07:39 05/04/24 07:39 05/04/24 07:39 05/04/24 07:39 05/04/24 07:39
I&O
05/03/24 05/04/24 05/05/24
06:59 06:59 06:59
Intake Total 2940 / 2940 840 / 840
Output Total 400 / 400 400 / 400
Balance 2540 / 2540 440 / 440
[2024-05-04] MEDS: NOVOLOG FLEXPEN-LOW RESISTANCE 1 UNITS SC ×2 (09:18→17:46)
[2024-05-04] MEDS: BRILINTA 90 MG PO ×2 (09:18→20:46)
[2024-05-04] MEDS: VITAMIN B1 200 MG PO (09:18)
[2024-05-04] MEDS: VIBRAMYCIN 100 MG PO ×2 (09:19→20:46)
[2024-05-04] MEDS: FLOMAX 0.4 MG PO (09:19)
[2024-05-04 11:21] VITALS: BP 121/81
[2024-05-04] MEDS: LOPRESSOR 50 MG PO (11:34)
[2024-05-04] MEDS: TYLENOL 650 MG PO ×2 (11:35→20:51)
--- NOTE | 2024-05-04 12:06 | W.PN.NEPH.PH ---
Today's Communication / Plan
-
IVF
Assessment/Plan
-
Assessment
CHRISTOPH
Bilateral nephrolithiasis
Hypertension
Diabetes mellitus type 2
Pneumonia/sepsis
Acute anemia
A-fib
Tremor
Norovirus
Plan
Continue IV fluids
await serologies at this time
Follow BMP
abx per primary team
-
-
Date of Service: May 04, 2024
CC / HPI / ROS
-
Chief Complaint:
CHRISTOPH
History of Present Illness:
CHRISTOPH/Cr down to 1.6
K normal
BP stable
Hgb lower at 8
on Abx for pneumonia
Review of Systems:
no CP/SOB
Labs
-
Labs:
WBC 10.4 10^3/uL (4.8-10.8) 05/04/24 06:28
RBC 2.79 10^6/uL (4.70-6.10) L 05/04/24 06:28
Hgb 8.0 g/dL (13.0-18.0) L 05/04/24 06:28
Hct 24.1 % (39.0-52.0) L 05/04/24 06:28
Plt Count 228 10^3/uL (130-400) 05/04/24 06:28
Sodium 138 mmol/L (135-145) 05/04/24 06:28
Potassium 3.5 mmol/L (3.5-5.1) 05/04/24 06:28
Chloride 106 mmol/L (98-107) 05/04/24 06:28
Carbon Dioxide 23 mmol/L (22-30) 05/04/24 06:28
BUN 43 mg/dl (9-20) H 05/04/24 06:28
Creatinine 1.6 mg/dL (0.7-1.3) H 05/04/24 06:28
eGFR 46.93 05/04/24 06:28
Glucose 174 mg/dl (70-99) H 05/04/24 06:28
Calcium 7.9 mg/dl (8.4-10.2) L 05/04/24 06:28
Albumin 2.7 g/dl (3.5-5.0) L 04/29/24 19:39
Physical Exam
-
Vital Signs:
Vital Signs
Temp Pulse Resp BP Pulse Ox
97.9 F 102 14 121/81 95
05/04/24 11:21 05/04/24 11:34 05/04/24 11:21 05/04/24 11:34 05/04/24 11:21
Cardiovascular:: Regular rate and rhythm
Respiratory:: Bilateral: Coarse
Lung Excursion:: Normal
Abdomen:: Nontender and Soft
Bowel Sounds:: Normal
Extremity Edema:: +1: Bilateral:
[2024-05-04 12:59] LABS: Glucose - Point of Care 208 mg/dl (70-99)
[2024-05-04] MEDS: NOVOLOG FLEXPEN-LOW RESISTANCE 2 UNITS SC (13:09)
[2024-05-04] MEDS: NSS 1000 IV (13:10)
--- NOTE | 2024-05-04 14:05 | CM ---
CM following re: discharge planning.
Reviewed pt's chart, met with pt.
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
Per [facility] liaison, pt is a LTC resident, on bed hold and pt will be accepted back when medically stable.
[facility] nursing report: [phone]
Discharge instructions
D/C plan: return back to [facility] for a skilled nursing care.
CM will follow with discharge plan updates as hospitalization progresses
[2024-05-04 15:16] VITALS: BP 121/76
[2024-05-04] MEDS: STERILE WATER FOR INJECTION 10 ML IV (16:17)
[2024-05-04] MEDS: ROCEPHIN 1000 MG IV (16:18)
[2024-05-04] MEDS: FLUSH (NSS) 10 FLUSH IV ×2 (16:19→16:33)
[2024-05-04 17:04] LABS: Glucose - Point of Care 172 mg/dl (70-99)
[2024-05-04 19:08] VITALS: BP 126/80
[2024-05-04] MEDS: LIPITOR 40 MG PO (20:47)
[2024-05-04 21:18] LABS: Glucose - Point of Care 162 mg/dl (70-99)
[2024-05-04] MEDS: LANTUS 0.08 UNITS SC (21:33)
[2024-05-04 23:35] VITALS: BP 106/64
[2024-05-05] MEDS: LOPRESSOR PO (00:06)
[2024-05-05] MEDS: NSS 1000 IV ×2 (02:30→15:39)
[2024-05-05 03:22] VITALS: BP 105/64
[2024-05-05] MEDS: LOPRESSOR 50 MG PO ×4 (05:45→23:32)
[2024-05-05 06:00] VITALS: BMI 29.6
[2024-05-05 06:33] LABS: Hematocrit 23.1 % (39.0-52.0); Hemoglobin 7.6 g/dL (13.0-18.0); Mean Corp Hgb Conc. 32.9 g/dL (33.0-37.0); Mean Corpuscular Hgb 28.1 pg (27.0-31.0); Mean Corpuscular Volume 85.6 fL (80.0-94.0); Mean Platelet Volume 9.9 fL (7.4-10.4); Platelet Count 215 10^3/uL (130-400); Red Cell Dist. Width 14.2 % (11.5-14.5); White Blood Cell Count 8.1 10^3/uL (4.8-10.8)
[2024-05-05 06:55] LABS: Blood Urea Nitrogen 39 mg/dl (9-20); Calcium 7.8 mg/dl (8.4-10.2); Carbon Dioxide 23 mmol/L (22-30); Chloride 106 mmol/L (98-107); Estimated Creatinine Clearance 73 ml/min; Glucose 133 mg/dl (70-99); Potassium 3.3 mmol/L (3.5-5.1); Sodium 134 mmol/L (135-145); eGFR > 60.00
[2024-05-05 07:27] VITALS: BP 124/82
[2024-05-05] MEDS: VIBRAMYCIN 100 MG PO ×2 (07:41→21:40)
[2024-05-05] MEDS: VITAMIN B1 200 MG PO (07:42)
[2024-05-05] MEDS: BRILINTA 90 MG PO ×2 (07:43→21:40)
[2024-05-05] MEDS: FLOMAX 0.4 MG PO (07:44)
[2024-05-05 08:12] LABS: Glucose - Point of Care 137 mg/dl (70-99)
[2024-05-05] MEDS: NOVOLOG FLEXPEN-LOW RESISTANCE SC (08:44)
--- NOTE | 2024-05-05 09:34 | W.PN.HOSP.TC ---
Today's Communication/Plan
-
Hopeful for discharge tomorrow
Assessment / Plan
Assessment / Plan
69y M with PMH significant for ASCVD / prior CVA, HTN, DM-II and R BKA who presents to ED for evaluation of hematuria / anemia.
Sepsis
Community-acquired pneumonia
Acute hypoxic respiratory failure
-05/02 Developed fever, leukocytosis, with hypoxia requiring NRB
-Covid/flu neg, chest CT shows pneumonia
-Continue rocephin and doxy D4
-Initially requiring 15 L nonrebreather, now on room air
CHRISTOPH on stage IIIa CKD
-Cr 1.2, was 1.6, was 2.0, was 1.5, was 1.3, patient has been voiding
-PVR's have been ok, renal ultrasound negative for hydronephrosis
-Appreciate nephrology input, suspect secondary to sepsis, avoid nephrotoxic drugs/NSAIDs
Subacute Blood Loss Anemia
-Hb has remained largely stable over the past month with values ranging from 7.6 to 9.2. Hb stable. Cont to trend Hb.
-Patient with evident hematuria with dark / brown colored urine. No flank pain, etc.
-Eliquis and Brilinta contributed to subacute blood loss anemia. Eliquis has been on hold since prior ED visit 04/27/24. Brilinta held on admission, resumed 05/[address] A/P above, findings unlikely hemorrhage
-Renal U/S without hydro
-Also noted to be Hemoccult positive in the ED 04/29/24 and has evidence of bleeding / oozing from needle stick sites, small abrasions, etc.
-Urology does not recommend any surgical intervention at this time
-With coronary stenting (pt's states August 2023 poss at [facility]) Brilinta resumed 05/01 AM with no recurrence of hematuria
Paroxysmal Atrial Fibrillation/Flutter:
-Patient states that he has had an ablation in the recent past - though he is not certain where this was done.
-Holding Eliquis as above
-Patient is tachycardic, increased metoprolol to tartrate from 25 mg twice a day to 50 mg every 6 hours
Hypokalemia
� Replete as needed
Subacute bilateral upper extremity tremors
-Present for 2 months per
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
-Abilify discontinued 05/03
-Recommend avoiding dopamine blocking agents
Acute on chronic multifactorial encephalopathy
-From [facility]
-Supportive care
Recent norovirus gastroenteritis
-Tested positive for norovirus 05/01
-Continue supportive care
Other problems:
CAD: Brilinta/statin/BB
h/o CVA: Brilinta/ statin.
DM2: a1c 6.2%, SSI/accuchecks
S/p R BKA in August 2023, presumably due to osteomyelitis.
DVT Prophylaxis: SCD to the LLE. Avoid pharmacologic therapy given bleeding.
Full Code
Dispo: from [facility]
Updated on phone 05/03
Called and left a message on 05/05
Total time spent to see the patient on the floor, examine the patient, review data and lab results, discuss treatment plan with patient, nursing staff around 40 minutes.
Physical exam
Gen: NAD, Awake and alert, appears chronically ill
Eyes: EOMI, PERRLA, no scleral icterus.
Neck: supple.
CV: Tachycardic, irregularly irregular, +S1/S2, no m/r/g.
Resp: CTAB anteriorly, no rales, wheezes, or rhonchi.
Abd: Remains +BS, soft, NT, ND
Ext: Right BKA noted
Left lower extremity edema noted
Neuro: Bilateral shaking of upper extremities, improved
Cognitive impairment noted
Anticipated Discharge: Within 24 hours
Subjective/Interval History
-
Date of Service: May 05, 2024
Patient reports feeling better overall. He continues to have a cough. Denies shortness of breath. No fever, no vomiting. No hematuria.
Objective Data
-
Labs:
Laboratory Results
05/05/24
05:32
WBC 8.1
Hgb 7.6 L
Hct 23.1 L
Plt Count 215
Sodium 134 L
Potassium 3.3 L
Chloride 106
Carbon Dioxide 23
BUN 39 H
Creatinine 1.2
Glucose 133 H
Calcium 7.8 L
Vital Signs:
Vital Signs
Temp Pulse Resp BP Pulse Ox
97.2 F 95 16 124/82 95
05/05/24 07:27 05/05/24 07:27 05/05/24 07:27 05/05/24 07:27 05/05/24 07:27
I&O
05/04/24 05/05/24 05/06/24
06:59 06:59 06:59
Intake Total 840 / 840 2400 / 2400
Output Total 400 / 400 1400 / 1400
Balance 440 / 440 1000 / 1000
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
[2024-05-05] MEDS: KCL 40 MEQ PO (10:27)
--- NOTE | 2024-05-05 10:28 | CM ---
Patient LTC resident at [facility] since 10/27
requires total care. PT eval no skilled need
Hgb 7.6
PLAN: return back to [facility] for a LTC when medically stable.
[facility] report: [phone]
[2024-05-05 11:14] VITALS: BP 115/69
[2024-05-05 12:06] LABS: Glucose - Point of Care 170 mg/dl (70-99)
--- NOTE | 2024-05-05 12:08 | W.PN.NEPH.PH ---
Today's Communication / Plan
-
K
Assessment/Plan
-
Assessment
CHRISTOPH
Bilateral nephrolithiasis
Hypertension
Diabetes mellitus type 2
Pneumonia/sepsis
Acute anemia
A-fib
Tremor
Norovirus
Plan
Continue IV fluids until PO improves
await serologies at this time
Follow BMP
abx per primary team
replete K
-
-
Date of Service: May 05, 2024
CC / HPI / ROS
-
Chief Complaint:
CHRISTOPH
History of Present Illness:
CHRISTOPH/Cr down to 1.2
K low 3.3
Na lower 134
BP stable
Hgb lower at 7.6
on Abx for pneumonia
Review of Systems:
no CP/SOB
not eating
Labs
-
Labs:
WBC 8.1 10^3/uL (4.8-10.8) 05/05/24 05:32
RBC 2.70 10^6/uL (4.70-6.10) L 05/05/24 05:32
Hgb 7.6 g/dL (13.0-18.0) L 05/05/24 05:32
Hct 23.1 % (39.0-52.0) L 05/05/24 05:32
Plt Count 215 10^3/uL (130-400) 05/05/24 05:32
Sodium 134 mmol/L (135-145) L 05/05/24 05:32
Potassium 3.3 mmol/L (3.5-5.1) L 05/05/24 05:32
Chloride 106 mmol/L (98-107) 05/05/24 05:32
Carbon Dioxide 23 mmol/L (22-30) 05/05/24 05:32
BUN 39 mg/dl (9-20) H 05/05/24 05:32
Creatinine 1.2 mg/dL (0.7-1.3) 05/05/24 05:32
eGFR > 60.00 05/05/24 05:32
Glucose 133 mg/dl (70-99) H 05/05/24 05:32
Calcium 7.8 mg/dl (8.4-10.2) L 05/05/24 05:32
Albumin 2.7 g/dl (3.5-5.0) L 04/29/24 19:39
Physical Exam
-
Vital Signs:
Vital Signs
Temp Pulse Resp BP Pulse Ox
98.3 F 109 16 115/69 96
05/05/24 11:14 05/05/24 11:14 05/05/24 11:14 05/05/24 11:14 05/05/24 11:14
Cardiovascular:: Regular rate and rhythm
Respiratory:: Bilateral: Coarse
Lung Excursion:: Normal
Abdomen:: Nontender and Soft
Bowel Sounds:: Normal
Extremity Edema:: None: Bilateral:
[2024-05-05 13:55] VITALS: BP 134/88
[2024-05-05] MEDS: NOVOLOG FLEXPEN-LOW RESISTANCE 1 UNITS SC ×2 (14:19→17:33)
[2024-05-05] MEDS: FLUSH (NSS) IV ×2 (14:55)
[2024-05-05 15:24] VITALS: BP 128/87
[2024-05-05] MEDS: TYLENOL 650 MG PO (15:33)
[2024-05-05] MEDS: STERILE WATER FOR INJECTION 10 ML IV (15:34)
[2024-05-05] MEDS: ROCEPHIN 1000 MG IV (15:35)
[2024-05-05 17:08] LABS: Glucose - Point of Care 156 mg/dl (70-99)
[2024-05-05 21:27] LABS: Glucose - Point of Care 142 mg/dl (70-99)
[2024-05-05] MEDS: LANTUS 0.08 UNITS SC (21:38)
[2024-05-05] MEDS: LIPITOR 40 MG PO (21:40)
[2024-05-05 22:20] LABS: ANA, IgG Reflex to HEp-2 Detected (None Detected)
[2024-05-05 23:38] VITALS: BP 113/71
[2024-05-06 02:58] VITALS: BP 100/61
[2024-05-06] MEDS: NSS 1000 IV (04:40)
[2024-05-06] MEDS: LOPRESSOR 50 MG PO (05:14)
[2024-05-06 05:34] VITALS: BMI 29.7
[2024-05-06 06:12] LABS: Myeloperoxidase Antibody 0 AU/mL (0-19); Serine Protease-3, IgG 1 AU/mL (0-19)
[2024-05-06 07:40] VITALS: BP 121/79
[2024-05-06 07:46] LABS: Glucose - Point of Care 81 mg/dl (70-99)
[2024-05-06 07:54] LABS: Hematocrit 22.6 % (39.0-52.0); Hemoglobin 7.5 g/dL (13.0-18.0); Mean Corp Hgb Conc. 33.2 g/dL (33.0-37.0); Mean Corpuscular Hgb 28.6 pg (27.0-31.0); Mean Corpuscular Volume 86.3 fL (80.0-94.0); Mean Platelet Volume 10.3 fL (7.4-10.4); Platelet Count 204 10^3/uL (130-400); Red Blood Cell Count 2.62 10^6/uL (4.70-6.10); Red Cell Dist. Width 14.1 % (11.5-14.5); White Blood Cell Count 8.9 10^3/uL (4.8-10.8)
--- NOTE | 2024-05-06 08:23 | W.PN.HOSP.TC ---
Today's Communication/Plan
-
Discharge today
Assessment / Plan
Assessment / Plan
69y M with PMH significant for ASCVD / prior CVA, HTN, DM-II and R BKA who presents to ED for evaluation of hematuria / anemia.
Sepsis
Community-acquired pneumonia
Acute hypoxic respiratory failure
-05/02 Developed fever, leukocytosis, with hypoxia requiring NRB
-Covid/flu neg, chest CT shows pneumonia
-Resolving on rocephin and doxy D4
-Initially requiring 15 L nonrebreather, now on room air
-Medically stable for discharge on cefdinir and doxycycline to complete a 7-day course
�Follow-up with PCP in 1 week
CHRISTOPH on stage IIIa CKD
-Cr 1.0, was 1.2, was 1.6, was 2.0, was 1.5, was 1.3, patient has been voiding
-PVR's have been ok, renal ultrasound negative for hydronephrosis
-Appreciate nephrology input, suspect secondary to sepsis, avoid nephrotoxic drugs/NSAIDs
Subacute Blood Loss Anemia
-Hb has remained largely stable over the past month with values ranging from 7.6 to 9.2. Hb stable. Cont to trend Hb.
-Patient with evident hematuria with dark / brown colored urine. No flank pain, etc.
-Eliquis and Brilinta contributed to subacute blood loss anemia. Eliquis has been on hold since prior ED visit 04/27/24. Brilinta held on admission, resumed 05/01 AM
-CT A/P above, findings unlikely hemorrhage
-Renal U/S without hydro
-Also noted to be Hemoccult positive in the ED 04/29/24 and has evidence of bleeding / oozing from needle stick sites, small abrasions, etc.
-Urology does not recommend any surgical intervention at this time
-With coronary stenting (pt's states August 2023 poss at [facility]) Brilinta resumed 05/01 AM with no recurrence of hematuria
Paroxysmal Atrial Fibrillation/Flutter:
-Patient states that he has had an ablation in the recent past - though he is not certain where this was done.
-Holding Eliquis as above
-Patient is tachycardic, increased metoprolol to tartrate from 25 mg twice a day to 50 mg every 6 hours
Hypokalemia
� Repleted and resolved
Subacute bilateral upper extremity tremors
-Present for 2 months per
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
-Abilify discontinued 05/03
-Recommend avoiding dopamine blocking agents
Acute on chronic multifactorial encephalopathy
-From [facility]
-Supportive care
Recent norovirus gastroenteritis
-Tested positive for norovirus 05/01
-Continue supportive care
Other problems:
CAD: Brilinta/statin/BB
h/o CVA: Brilinta/ statin.
DM2: a1c 6.2%, SSI/accuchecks
S/p R BKA in August 2023, presumably due to osteomyelitis.
DVT Prophylaxis: SCD to the LLE. Avoid pharmacologic therapy given bleeding.
Full Code
Dispo: from [facility]
Updated on phone 05/06
Physical exam
Gen: NAD, Awake and alert, appears chronically ill
Eyes: EOMI, PERRLA, no scleral icterus.
Neck: supple.
CV: Tachycardic, irregularly irregular, +S1/S2, no m/r/g.
Resp: CTAB anteriorly, no rales, wheezes, or rhonchi.
Abd: Remains +BS, soft, NT, ND
Ext: Right BKA noted
Left lower extremity edema noted
Neuro: Bilateral shaking of upper extremities, improved
Cognitive impairment noted
Anticipated Discharge: Today
Subjective/Interval History
-
Date of Service: May 06, 2024
No recurrence of hematuria. No shortness of breath. Patient continues to cough. No fever, no vomiting.
Objective Data
-
Labs:
Laboratory Results
05/06/24
06:03
WBC 8.9
Hgb 7.5 L
Hct 22.6 L
Plt Count 204
Sodium Pending
Potassium Pending
Chloride Pending
Carbon Dioxide Pending
BUN Pending
Creatinine Pending
Glucose Pending
Calcium Pending
Vital Signs:
Vital Signs
Temp Pulse Resp BP Pulse Ox
99.0 F 91 18 121/79 95
05/06/24 07:40 05/06/24 07:40 05/06/24 07:40 05/06/24 07:40 05/06/24 07:40
I&O
05/05/24 05/06/24 05/07/24
06:59 06:59 06:59
Intake Total 2400 / 2400 680 / 680
Output Total 1400 / 1400 1250 / 1250
Balance 1000 / 1000 -570 / -570
[2024-05-06 08:35] LABS: Blood Urea Nitrogen 29 mg/dl (9-20); Calcium 6.9 mg/dl (8.4-10.2); Carbon Dioxide 23 mmol/L (22-30); Chloride 106 mmol/L (98-107); Estimated Creatinine Clearance 88 ml/min; Glucose 76 mg/dl (70-99); Potassium 3.6 mmol/L (3.5-5.1); Sodium 135 mmol/L (135-145); eGFR > 60.00
[2024-05-06] MEDS: NOVOLOG FLEXPEN-LOW RESISTANCE SC ×2 (08:48→13:37)
[2024-05-06] MEDS: VITAMIN B1 200 MG PO (09:09)
[2024-05-06] MEDS: BRILINTA 90 MG PO (09:10)
[2024-05-06] MEDS: FLOMAX 0.4 MG PO (09:10)
[2024-05-06] MEDS: VIBRAMYCIN 100 MG PO (09:10)
[2024-05-06] MEDS: TOPROL XL 100 MG PO (09:16)
[2024-05-06] MEDS: OSCAL 500 + D 500 MG PO (09:17)
[2024-05-06 09:19] LABS: Albumin 1.9 g/dl (3.5-5.0)
--- NOTE | 2024-05-06 09:35 | CM ---
Met with patient
tt per hospitalist d/c today to [facility]
Andreea liaison notified. No auth needed per Andreea
IMM explained & signed. In chart
PLAN: [facility] LTC
report: [phone]

transportation forms on chart
[2024-05-06] MEDS: OMNICEF 300 MG PO (11:00)
[2024-05-06 11:18] VITALS: BP 124/78
[2024-05-06 12:34] LABS: Glucose - Point of Care 70 mg/dl (70-99)
[2024-05-06 14:35] VITALS: BP 110/71
[2024-05-07 01:28] LABS: ANA, HEp-2, IgG <1:80 (<1:80)
== END 2024-05-06 15:01 | DRG 871 ==
LOC: 2 NORTH 22:27
PROVIDERS: Registered Nurse; ADMITTING PHYSICIAN Hospitalist; ATTENDING PHYSICIAN Family Medicine; CONSULT PHYSICIAN Psychiatry & Neurology Neurology; CONSULT PHYSICIAN Urology; EMERGENCY PHYSICIAN Emergency Medicine; FAMILY PHYSICIAN Internal Medicine; OTHER PHYSICIAN Specialist
DX: A41.9 Sepsis, unspecified organism (principal); G93.41 Metabolic encephalopathy; J18.9 Pneumonia, unspecified organism; J96.01 Acute respiratory failure with hypoxia; I48.92 Unspecified atrial flutter; N17.9 Acute kidney failure, unspecified; I13.0 Hypertensive heart and chronic kidney disease with heart failure and stage 1 through stage 4 chronic kidney disease, or unspecified chronic kidney disease; I69.354 Hemiplegia and hemiparesis following cerebral infarction affecting left non-dominant side; N18.30 Chronic kidney disease, stage 3 unspecified; I48.0 Paroxysmal atrial fibrillation; E87.6 Hypokalemia; D64.9 Anemia, unspecified; E11.22 Type 2 diabetes mellitus with diabetic chronic kidney disease; E11.40 Type 2 diabetes mellitus with diabetic neuropathy, unspecified; G20.C Parkinsonism, unspecified; I25.10 Atherosclerotic heart disease of native coronary artery without angina pectoris; I50.9 Heart failure, unspecified; Z89.511 Acquired absence of right leg below knee; Z86.74 Personal history of sudden cardiac arrest; Z79.4 Long term (current) use of insulin; Z79.02 Long term (current) use of antithrombotics/antiplatelets; Z79.01 Long term (current) use of anticoagulants; Z66 Do not resuscitate; Z11.52 Encounter for screening for COVID-19
CPT/HCPCS: 51798; 70551; 71250; 76770; 80048; 80053; 81003; 81015; 81099; 82040; 82140; 82550; 82570; 82962; 83036; 83516; 83540; 83550; 84145; 84300; 84443; 85025; 85027; 85610; 85730; 86038; 86039; 86160; 86850; 86900; 86901; 87040; 87086; 87502; 87798; 87811; 93005; 99285

== ENCOUNTER 2024-06-04 05:59 | Inpatient (IN) | payer MEDICARE, BC, SELFPAY ==
[2024-06-03 23:35] VITALS: BP 119/75
[2024-06-04] VITALS (10 sets, daily range): BP systolic 96–131; BP diastolic 59–76; BMI 32.0; BMI 30.6
[2024-06-04 00:41] LABS: % Basophils 0.6 % (0-2); % Eosinophils 3.3 % (0-6); % Immature Granulocytes 2.5 % (0-0.5); % Lymphocytes 17.7 % (20.5-51.1); % Monocytes 5.8 % (1.7-9.3); % Neutrophils 70.1 % (42.2-75.2); Absolute Basophils 0.1 10^3/uL (0-0.2); Absolute Eosinophils 0.3 10^3/uL (0-0.7); Absolute Immature Granulocytes 0.2 10^3/uL (0-0.05); Absolute Lymphocytes 1.4 10^3/uL (1.2-3.4); Absolute Monocytes 0.5 10^3/uL (0.1-0.6); Absolute Neutrophils 5.6 10^3/uL (1.4-6.5); Hematocrit 23.2 % (39.0-52.0); Hemoglobin 7.2 g/dL (13.0-18.0); Mean Corpuscular Hgb 28.2 pg (27.0-31.0); Mean Platelet Volume 9.4 fL (7.4-10.4); Nucleated Red Blood Cells % 0 % (-); Platelet Count 219 10^3/uL (130-400); Red Blood Cell Count 2.55 10^6/uL (4.70-6.10); Red Cell Dist. Width 15.4 % (11.5-14.5); White Blood Cell Count 7.9 10^3/uL (4.8-10.8)
[2024-06-04 01:19] LABS: ALT (SGPT) 11 U/L (0-50); AST (SGOT) 17 U/L (17-59); Albumin 2.2 g/dl (3.5-5.0); Alkaline Phosphatase 101 U/L (38-126); Blood Urea Nitrogen 22 mg/dl (9-20); Calcium 8.3 mg/dl (8.4-10.2); Carbon Dioxide 27 mmol/L (22-30); Chloride 110 mmol/L (98-107); Glucose 162 mg/dl (70-99); Potassium 4.6 mmol/L (3.5-5.1); Sodium 139 mmol/L (135-145); Total Bilirubin 0.2 mg/dl (0.2-1.3); Total Protein 5.1 g/dl (6.3-8.2); eGFR > 60.00
--- NOTE | 2024-06-04 04:13 | ED.GENMED ---
History of Present Illness
General
Chief Complaint: Abnormal Lab Value
Source: patient and previous hospital records (Previous hospitalization 1 month ago for somewhat similar complaint. Acute on chronic anemia thought to be urinary in nature.)
Exam Limitations: none
Time Seen by Provider: 06/04/24 03:45
Nursing documentation reviewed up to this point in time: agreed with
History of Present Illness
History of Present Illness:
This is a 69-year-old gentleman who has history of CVA with left-sided weakness, right BKA 11 months ago, history of A-fib/flutter who had been maintained on Eliquis as well as Brilinta.
He was hospitalized 1 month ago for evaluation of anemia. Did not require transfusion and at the time progressive anemia thought to be related to gross hematuria which was related to staghorn calculi and bladder stones.
He was also found to have heme positive stools. During that hospitalization was not evaluated by GI. Eliquis was held and it appears that continues to be held. Brilinta was resumed.
He is sent to the ED by [facility] when outpatient labs on June 03 showed hemoglobin of 7.0. He admits to moderate fatigue but denies dizziness or lightheadedness, no abdominal pain or chest pain, no coughing or shortness of breath. He has
not had a fever.
No further gross hematuria. He denies black or tarry stools. He denies nausea nor vomiting.
He is scheduled for cystoscopy this .
Past History
Past History
ED Past Medical History: Arrthythmia, CAD, CHF, CVA, GERD, HTN, Hypercholesterolemia, NIDDM, Renal failure, Psychiatric and Other (Anemia, staghorn calculus, bladder stones)
ED Past Surgical History: Orthopedic
Social History
Tobacco: Non-smoker
Alcohol: None
Personal:
Living: [facility]
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
Family History
Family History: Other (Noncontributory)
Phy Exam
Physical Exam
Physical Exam:
GENERAL: 69-year-old gentleman appears moderately, chronically debilitated, moderately fatigued, moderately ill in appearance. He is awake and alert, speaks in a whispered voice but oriented x 3, cooperative. No acute distress.
EYE: pupils equal and reactive. Conjunctiva are moderately pale. Anicteric
NECK: Supple, nontender, no meningismus, no significant adenopathy.
ENT: posterior pharynx is clear, oral mucosa is moist. No rhinorrhea.
CARDIAC: Regular rate and rhythm. no murmur.
LUNGS: Clear breath sounds bilaterally, no acute respiratory distress, no wheezes/rales/rhonchi
ABDOMEN: Soft, nondistended, without focal tenderness, no r/g, no cvat. normoactive BS. Rectal exam reveals soft brown stool that is heme positive.
NEUROLOGICAL: Alert and oriented x3, no focal neuro deficits.
SKIN: Warm and dry, significantly pale in color, skin intact. No rash.
MUSCULOSKELETAL: Trace pretibial edema. Right BKA.
PSYCH: Normal and appropriate interaction.
Course
Orders/Labs/Results
Orders:
Orders
06/04/24 00:32
Complete Blood Count/With Diff Urgent
Comprehensive Metabolic Panel Urgent
06/04/24 00:35
Type And Crossmatch [Type+Screen] Urgent
06/04/24 04:11
Blood Bank Products [* Blood Bank Products] Urgent
Blood Bank Products: *Packed RBC Leuko(PRBC's)
Quantity: 2
Transfuse Today: Yes
Reason: Anemia
Patient will require pre-treatment for transfusion:: No
Pantoprazole [Protonix IV] 40 mg IV NOW STA
06/04/24 05:27
Admit/Transfer Patient As Directed
Co-Sign Provider:
Level of Care: Inpatient admission
Assign to:: Medical/Surgical
Physician / Group: hospitalist
Diagnosis: anemia
Reason for Hospitalization: acute on chronic anemia
Expected length of stay greater than two midnights?: Yes
ELOS- Estimated Length of Stay in days: 2
I certify the patient meets the requirements for IP care: Yes
PRN Pain Medication Management As Directed
May give lesser potent ordered pain med per pt: Yes
preference::
Protocol:: Medication orders for pain may be administered in a
manner that supports deferring to patient preference
when the pt is:
- Requesting an ordered lesser potent pain medication.
Least to most potent pain medications are defined
as: acetaminophen < NSAID < tramadol < opioids
(morphine, oxycodone, hydromorphone).
- Requesting a lesser dose of the same medication IF
ORDERED.
- Requesting a less intrusive route of administration
if both routes are prescribed by the provider (PO <
IV).
06/04/24 05:33
Code Status As Directed
Resuscitation Status: Full Code
Abnormal Lab Results
06/04/24 06/04/24
00:32 00:35
RBC 2.55 L 10^6/uL
(4.70-6.10)
Hgb 7.2 L g/dL
(13.0-18.0)
Hct 23.2 L %
(39.0-52.0)
MCHC 31.0 L g/dL
(33.0-37.0)
RDW 15.4 H %
(11.5-14.5)
Abs Immat Gran (auto) 0.2 H 10^3/uL
(0-0.05)
Immature Gran % 2.5 H %
(0-0.5)
Lymphocytes % 17.7 L %
(20.5-51.1)
Chloride 110 H mmol/L
(98-107)
BUN 22 H mg/dl
(9-20)
Glucose 162 H mg/dl
(70-99)
Calcium 8.3 L mg/dl
(8.4-10.2)
Total Protein 5.1 L g/dl
(6.3-8.2)
Albumin 2.2 L g/dl
(3.5-5.0)
Crossmatch IS Only See Detail
06/04/24 00:32
06/04/24 00:32
Vital Signs
Initial and Last Documented VS:
Initial Vital Signs
Temp Pulse Resp BP Pulse Ox
97.8 F 91 20 119/75 97
06/03/24 23:35 06/03/24 23:35 06/03/24 23:35 06/03/24 23:35 06/03/24 23:35
Last Documented Vital Signs
Temp Pulse Resp BP Pulse Ox
97.9 F 84 14 115/70 94
06/04/24 03:21 06/04/24 06:00 06/04/24 06:00 06/04/24 06:00 06/04/24 04:45
MDM/Problems Addressed
Differential Diagnosis Includes:
Patient presents with acute on chronic anemia.
Hemoglobin has drifted down from 9.2 April 27 to now 7.2. Discharge hemoglobin May 06 was 7.5.
Bedside urine specimen shows jorge urine but no gross hematuria.
Rectal exam reveals soft brown stool that is heme positive.
Concern for occult GI bleed as cause for progressive anemia and with hemoglobin hovering at 7 will plan to transfuse 1 to 2 units of packed cells.
Will initiate IV Protonix and will plan to admit to hospitalist service.
Chronic conditions affecting care: DM, HTN, Arrhythmia, Neurological disorder, Psychiatric illness and Kidney disease
*Pulse Oximetry
Patient hypoxic: no
*Mend Worker Interpretation
Rate: normal
Interpretation: normal
Rhythm: sinus
*Critical Care Note
Total Time (30-74mins, 75-104mins- exclusive of procedures): Not Applicable
ED Attending Note
-
Portions of this chart may have been created with voice recognition software.� Occasional wrong word or��sound alike� substitutions may have occurred due to the inherent limitations of voice recognition software.
Discharge Plan
Departure
Patient Disposition: Admit
Date of Disposition: 06/04/24
Time of Disposition: 04:21
Admit to: Med/Surg
Admit to doctor: Yuniel
Presentation/result/management discussed w/ accepting MD/DO: Hospitalist
Condition: Fair
Discharge Problem:
Acute on chronic anemia, Heme positive stool
Interventions
Interventions:
*Risk Screen - Suicide Last Done: 06/03/24 23:35
[2024-06-04] MEDS: PROTONIX IV 40 MG IV (04:20)
--- NOTE | 2024-06-04 05:03 | HPS.HSE ---
Family Physician
-
Family Physician: Lukasz Gant
Chief Complaint
-
Low hemoglobin
History of Present Illness
This is a 69-year-old male with past medical history of CVA with residual left-sided weakness, atrial fibrillation on anticoagulation, CAD, type 2 diabetes, status post right BKA, recent admission for blood loss anemia complicated by
pneumonia/sepsis who presents to the emergency department from the rehab facility when follow-up CBC on 06/03 showed a hemoglobin of 7.0.
Patient is a fairly poor historian in part due to frustration of being in and out of the hospital. During his last admission he was found to have a hemoglobin of around 7.6 at the lowest and a range of 9-7.6 over the previous month. He appeared to
have some bleeding diathesis with oozing from the IV sites, guaiac positive rectal examination and hematuria with dark-colored urine likely from bilateral staghorn calculi versus bladder source. Patient's Eliquis and ticagrelor were initially held.
Urology evaluated patient and recommended continuing holding of the Eliquis. Eliquis is not to be resumed until after patient's cystoscopy which she is to have outpatient. Tubular was restarted and patient's hemoglobin remained stable. His urine
appeared clear prior to discharge from the hospital.
Since hospital discharge the patient has had no black stools or bloody stools. He denied any hematemesis. He denied any gross hematuria. He denied dark-colored urine. He denies any flank pain, nausea vomiting fevers or chills. Denies any
dysuria. Patient has been unable to get the cystoscopy done due to postponement. For the cystoscopy he is now scheduled for 10 June.
Outpatient hemoglobin was 7.2 on May 16, 8.0 on May 26 and 7.0 on June 03.
In the ED today initial blood pressure was slightly low at 90/64, pulse was 84. He was satting 98% on room air. Hemoglobin was 7.2 platelet counts are normal at 219 white count was normal at 79. Electrolytes BUN/creatinine were all in the normal
range.
Medical History
Past Medical History
Past Medical History: Reports Other
Additional Past Medical History:
Hypertension
ASCVD
Left Hemiparesis s/p CVA
GERD
Paroxysmal A-Fib / Flutter
CKD III
CHF - Unknown Type
DM-II
Psychiatric Disorder - Unspecified
Past Surgical History: Reports Other
Additional Past Surgical History:
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
A-Fib / Flutter Ablation
Appendectomy
ORIF LUE
Right Knee Arthroscopy
Social History
Tobacco: Non-smoker
Alcohol: None
Drug: None
Personal:
Employment: Disabled
Family History
Family History: Not pertinent
Allergies / Home Medications
Allergies reflects when Allergies were last updated in [facility].
Home Medications with original date entered in [facility]
Allergy/Medication List:
Allergies
Allergy/AdvReac Type Severity Reaction Status Date / Time
Penicillins Allergy Swelling Verified 06/03/24 23:43
Home Medications
acetaminophen 325 mg tablet (Tylenol) 650 mg PO Q4HPRN PRN Temp > 100, mild pain 04/29/24
ammonium lactate 12 % lotion (AmLactin) 1 applic topical TID B/L LOWER EXTREMITES 04/29/24
apixaban 5 mg tablet (Eliquis) 5 mg PO BID Blood Clot Prevention/Tx 04/29/24
aripiprazole 10 mg tablet (Abilify) 10 mg PO HS Mental Health/Anxiety 04/29/24
atorvastatin 40 mg tablet 40 mg PO HS High Cholesterol 04/29/24
fluticasone propionate 50 mcg/actuation nasal spray,suspension 1 spray intranasal DAILYPRN PRN ALLERGIES 04/29/24
insulin glargine 100 unit/mL (3 mL) subcutaneous pen 10 unit SC HS Diabetes 04/29/24
insulin lispro 100 unit/mL subcutaneous pen 1 sliding scale dose SC AC Diabetes 04/29/24
loperamide 2 mg tablet (Imodium A-D) 2 mg PO Q6HPRN PRN Diarrhea 04/29/24
losartan 50 mg tablet 50 mg PO DAILY Blood Pressure 04/29/24
multivitamin 1 tab PO DAILY Supplement 04/29/24
pantoprazole 40 mg tablet,delayed release 40 mg PO BID GERD 04/29/24
thiamine HCl (vitamin B1) 100 mg tablet 200 mg PO DAILY Supplement 04/29/24
ticagrelor 90 mg tablet 90 mg PO BID Blood Clot Prevention/Tx 04/29/24
zinc oxide 10 % topical ointment 1 applic topical TID B/L BUTTOCK 04/29/24
bisacodyl 10 mg rectal suppository (Dulcolax (bisacodyl)) 10 mg CO DAILYPRN PRN IF NO BM AFTR MOM 04/30/24
magnesium hydroxide 400 mg/5 mL oral suspension (Milk of Magnesia) 2,400 mg PO DAILYPRN PRN IF NO BM BY 3RD DAY 04/30/24
zinc oxide 10 % topical ointment 1 applic topical DAILYPRN PRN B/L BUTTOCK 04/30/24
calcium 500 mg (as carbonate)-vitamin D3 5 mcg (200 unit) tablet (Oyster Shell Calcium-Vitamin D3) 1 tab PO TID #0 tabs 05/06/24
cefdinir 300 mg capsule 300 mg PO BID 3 days #6 caps 05/06/24
doxycycline hyclate 100 mg capsule 100 mg PO Q12 3 days #6 caps 05/06/24
metoprolol succinate 100 mg tablet,extended release 24 hr 100 mg PO BID #0 tabs 05/06/24
tamsulosin 0.4 mg capsule 0.4 mg PO DAILY #0 caps 05/06/24
Review of Systems
-
History Source: Patient
Constitutional: Reports No Symptoms
EENT: Reports No Symptoms
Respiratory: Reports No Symptoms
Cardiac: Reports No Symptoms
Abdomen/GI: Reports No Symptoms
: Reports No Symptoms
Musculoskeletal: Reports No Symptoms
Skin: Reports No Symptoms
Neurological: Reports No Symptoms
Endocrine: Reports No Symptoms
Hematologic/Lymphatic: Reports No Symptoms
Psych: Reports No Symptoms
Physical Exam
Vital Signs
Vital Signs
Temp Pulse Resp BP Pulse Ox
97.9 F 79 19 105/70 94
06/04/24 03:21 06/04/24 04:45 06/04/24 04:45 06/04/24 04:41 06/04/24 04:45
Physical Exam
General: Appears Chronically Ill; No No Apparent Distress, Respiratory Distress or Pain
HEENT: NormoCephalic, Anicteric, Moist mucous membranes, Atraumatic and PERRLA
Respiratory: Clear
Cardiac: S1/S2 and Regular Rhythm
Breast: Deferred by me
GI: Soft, Non Tender, Non Distended and Normal Bowel Sounds
Rectal: Hem Positive
Genito-urinary: Clear Urine
Musculoskeletal: No Clubbing, No Cyanosis, No Edema and Other (R BKA)
Skin: Warm
Neuro: AO x 3 and Nonfocal/grossly intact
Hematologic/Lymphatic: No Lymphadenopathy
Psych: Calm
Laboratory Results
-
06/04/24 00:32
06/04/24 00:32
Laboratory Results
Total Bilirubin 0.2 mg/dl (0.2-1.3) 06/04/24 00:32
AST 17 U/L (17-59) 06/04/24 00:32
ALT 11 U/L (0-50) 06/04/24 00:32
Alkaline Phosphatase 101 U/L (38-126) 06/04/24 00:32
Data Reviewed
-
Lab Data: Labs Reviewed by me
Old Records: Reviewed
Impression/Plan
-
IMPRESSION:
69 y.o with acute on chronic anemia, presents from rehab for Hgb 7.0 on routine follow up labs. Here in ED Hgb was 7.2. No obvious active bleeding note. Patient himself denies symptoms. Denies seeing any gross hematuria, dark urine, melena,
bloody stools or having any hematemesis. No ongoing large wounds with bleeding. He is HD stable. Denies feeling dizzy, short or breath or lightheaded but is not very active.
PLAN:
1. Acute on chronic anemia - No iron deficiency on prior labs, MCV normal, normal TSH. Subacute blood loss anemia suspected. Recently thought to be due possibly to recurrent hematuria versus GI bleed in setting of brillanta + eliquis. Eliquis
held on last discharge to be restarted after cystoscopy. Maryqudoris remains as active on rehab MARS appearing to have restarted on 05/16 pending cystoscopy on 06/10. Cannot rule out GI bleed component.
- admit to med/surg
- type and screen
- transfuse 1 unit
- check repeat iron/sat, retic, b12/folate and ldh
- H&H and transfuse for goal Hgb > 7
- check u/a for significant hematuria, consult urology if +++ rbc/blood
- hold eliquis again for now
- will continue brillanta for now
- brown heme + on rectal exam, unclear if ongoing GI bleed is involved, on pantoprazole bid already.
- carb diet as tolerated
2. AFIB -
- holding eliquis
- continue metoprolol succinate 100 bid for rate control
3. HTN
- continue metoprlol
- hold losartan (to be hled if SBP < 100)
4. CVA/CAD - Stent placed August 2023
- continue brillanta and statin
5.DM II
- glargine 10 hs, sliding scale insulin aspart
6.Skin - sacral cellulitis
- on bactrim ds till 06/09
- skin care protocol
7. Neuro - had tremors thought 2/2 aripiprazole on last admission. d/c per neuro
- continue meds except abilify
DVT PPX - SCD for now
Code status - Changed to full code on last admission.
[2024-06-04 08:38] LABS: Glucose - Point of Care 152 mg/dl (70-99)
[2024-06-04 10:41] LABS: Hematocrit 25.6 % (39.0-52.0); Hemoglobin 8.1 g/dL (13.0-18.0)
[2024-06-04 10:48] LABS: INR 1.32; PT 16.7 Sec (11.4-14.6)
[2024-06-04] MEDS: BACTRIM DS 800 MG/160 MG 1 TABLET PO ×2 (10:49→21:06)
[2024-06-04] MEDS: FLOMAX 0.4 MG PO (10:49)
[2024-06-04] MEDS: LAC HYDRIN, AM LACTIN LOTION 1 APPLIC TOPICAL ×3 (10:50→21:24)
[2024-06-04] MEDS: VITAMIN B1 200 MG PO (10:50)
[2024-06-04] MEDS: TOPROL XL 100 MG PO ×2 (10:51→21:06)
[2024-06-04] MEDS: COZAAR 50 MG PO (10:53)
[2024-06-04] MEDS: BRILINTA 90 MG PO ×2 (10:54→21:06)
[2024-06-04] MEDS: DEPAKOTE SPRINKLE 125 MG PO ×2 (10:54→21:06)
[2024-06-04 11:01] LABS: Iron 120 ug/dl (49-181); LDH 196 U/L (120-246)
[2024-06-04 11:11] LABS: Percent Saturation 66 % (20-50); Total Iron Binding Capacity 180 ug/dl (261-462)
[2024-06-04 12:08] LABS: Folate 3.3 ng/ml (2.76-20); Vitamin B12 918 pg/ml (239-931)
--- NOTE | 2024-06-04 12:18 | W.PN.UPDATE ---
Update Note
Progress Note Update
Seen at bedside, monitor hemoglobin
Hold on further transfusion until hemoglobin drops under 7
Can hold Eliquis for today - start back kenyon if hgb remains stable
add ferritin
hgb seems stable
[2024-06-04 12:19] LABS: Glucose - Point of Care 150 mg/dl (70-99)
--- NOTE | 2024-06-04 13:16 | PHANOTE ---
med rec note- following up on a admit patient on the floor, no records in patient binder or scanned into chart. called [facility] for med list to be faxed over.
[2024-06-04] MEDS: ZINC OXIDE OINTMENT TOPICAL (13:24)
[2024-06-04 13:34] LABS: TSH Reflex To Free T4 4.64 uIU/ml (0.47-4.68)
--- NOTE | 2024-06-04 16:03 | CM ---
Adm dx - anemia; PMH -of CVA with residual left-sided weakness, atrial fibrillation on anticoagulation, CAD, type 2 diabetes, status post right BKA, recent admission for blood loss anemia complicated by pneumonia/sepsis
Spoke with pts - LTR at [facility]. Total care. Confused at baseline
Plan at d/c is to return to [facility]
PCP - Lukasz Gant
Pharm - [facility]
LM with Andreea at [facility] to confirm LTC status and bed hold
requesting update - TT sent to hospitalist requesting call to . Per had recent knee replacement - unable to visit at this time
Plan -anticipate return to [facility] when medically stable
[2024-06-04 16:40] LABS: Glucose - Point of Care 175 mg/dl (70-99)
[2024-06-04] MEDS: ZINC OXIDE OINTMENT 1 APPLIC TOPICAL ×2 (16:49→21:26)
[2024-06-04] MEDS: ROXICODONE 5 MG PO (16:53)
--- NOTE | 2024-06-04 17:17 | PTCARENOTE ---
Patient poor historian; unable to verify current medications; this RN spoke with patient's who was also unable to confirm current medications.
[2024-06-04 18:17] LABS: Hematocrit 23.3 % (39.0-52.0); Hemoglobin 7.5 g/dL (13.0-18.0)
[2024-06-04] MEDS: PROTONIX 40 MG PO (21:06)
[2024-06-04] MEDS: LIPITOR 40 MG PO (21:09)
[2024-06-04 22:21] LABS: Glucose - Point of Care 168 mg/dl (70-99)
[2024-06-05 04:28] LABS: Urine Albumin 2+ (Neg - Trace); Urine Bilirubin Negative (Negative); Urine Character Slightly Cloudy (Clear); Urine Color Yellow; Urine Glucose Negative (Negative); Urine Ketone Negative (Negative); Urine Leukocyte Negative (Negative); Urine Nitrite Negative (Negative); Urine Occult Blood 4+ (Negative); Urine Urobilinogen Negative (Neg - 1+)
[2024-06-05 04:45] LABS: Urine Squamous Cell None seen /LPF (Few)
[2024-06-05 04:46] LABS: Urine Bacteria Moderate (Negative); Urine Red Blood Cell >100 /HPF (0-2); Urine White Cell 0-2 /HPF (0-5)
[2024-06-05 06:03] LABS: Hematocrit 23.5 % (39.0-52.0); Hemoglobin 7.5 g/dL (13.0-18.0); Mean Corp Hgb Conc. 31.9 g/dL (33.0-37.0); Mean Corpuscular Hgb 28.2 pg (27.0-31.0); Mean Corpuscular Volume 88.3 fL (80.0-94.0); Mean Platelet Volume 9.2 fL (7.4-10.4); Platelet Count 189 10^3/uL (130-400); Red Blood Cell Count 2.66 10^6/uL (4.70-6.10); Red Cell Dist. Width 15.4 % (11.5-14.5); White Blood Cell Count 11.3 10^3/uL (4.8-10.8)
[2024-06-05 06:35] LABS: ALT (SGPT) 11 U/L (0-50); AST (SGOT) 17 U/L (17-59); Albumin 2.2 g/dl (3.5-5.0); Alkaline Phosphatase 99 U/L (38-126); Blood Urea Nitrogen 22 mg/dl (9-20); Calcium 8.1 mg/dl (8.4-10.2); Carbon Dioxide 28 mmol/L (22-30); Chloride 107 mmol/L (98-107); Estimated Creatinine Clearance 91 ml/min; Glucose 146 mg/dl (70-99); Potassium 4.4 mmol/L (3.5-5.1); Sodium 137 mmol/L (135-145); Total Bilirubin 0.4 mg/dl (0.2-1.3); Total Protein 4.9 g/dl (6.3-8.2); eGFR > 60.00
[2024-06-05 07:02] VITALS: BP 115/76
[2024-06-05 07:47] LABS: Glucose - Point of Care 144 mg/dl (70-99)
[2024-06-05] MEDS: COZAAR 50 MG PO (10:04)
[2024-06-05] MEDS: PROTONIX 40 MG PO ×2 (10:04→21:08)
[2024-06-05] MEDS: VITAMIN B1 200 MG PO (10:04)
[2024-06-05] MEDS: FLOMAX 0.4 MG PO (10:05)
[2024-06-05] MEDS: DEPAKOTE SPRINKLE 125 MG PO ×2 (10:05→21:06)
[2024-06-05] MEDS: TOPROL XL 100 MG PO (10:05)
[2024-06-05] MEDS: BRILINTA 90 MG PO ×2 (10:05→21:08)
[2024-06-05] MEDS: BACTRIM DS 800 MG/160 MG 1 TABLET PO ×2 (10:05→21:08)
[2024-06-05] MEDS: ZINC OXIDE OINTMENT 1 APPLIC TOPICAL ×3 (10:09→21:09)
[2024-06-05] MEDS: LAC HYDRIN, AM LACTIN LOTION 1 APPLIC TOPICAL ×3 (10:09→21:09)
[2024-06-05 12:23] LABS: Glucose - Point of Care 152 mg/dl (70-99)
--- NOTE | 2024-06-05 12:58 | W.PN.HOSP.TC ---
Today's Communication/Plan
-
resume eliquis
monitor hgb
Assessment / Plan
Assessment / Plan
Physical Exam
General: Appears Chronically Ill; No No Apparent Distress, Respiratory Distress or Pain
HEENT: NormoCephalic, Anicteric, Moist mucous membranes, Atraumatic and PERRLA
Respiratory: Clear
Cardiac: S1/S2 and Regular Rhythm
Breast: Deferred by me
GI: Soft, Non Tender, Non Distended and Normal Bowel Sounds
Rectal: Hem Positive
Genito-urinary: Clear Urine
Musculoskeletal: No Clubbing, No Cyanosis, No Edema and Other (R BKA)
Skin: Warm
Neuro: AO x 3 and Nonfocal/grossly intact
Hematologic/Lymphatic: No Lymphadenopathy
Psych: Calm
69 y.o with acute on chronic anemia, presents from rehab for Hgb 7.0 on routine follow up labs. Here in ED Hgb was 7.2. No obvious active bleeding note. Patient himself denies symptoms. Denies seeing any gross hematuria, dark urine, melena,
bloody stools or having any hematemesis. No ongoing large wounds with bleeding. He is HD stable. Denies feeling dizzy, short or breath or lightheaded but is not very active.
PLAN:
#Anemia, chronic
-does not appear acute blood loss anemia
-resume Eliquis and monitor
- No iron deficiency on prior labs, MCV normal, normal TSH.
- Eliquis held on last discharge for 1 week; can be restarted - plan for cystoscopy on 06/10
-ferritin WNL
- H&H and transfuse for goal Hgb > 7
- will continue brillanta for now
-PPI
- carb diet as tolerated
#AFIB -
- resume eliquis
- continue metoprolol succinate 100 bid for rate control
# HTN
- continue metoprlol
- hold losartan (to be hled if SBP < 100)
#CVA/CAD - Stent placed August 2023
- continue brillanta and statin
#DM II
- glargine 10 hs, sliding scale insulin aspart
#Skin - sacral cellulitis
- on bactrim ds till 06/09
- skin care protocol
# Neuro - had tremors thought 2/2 aripiprazole on last admission. d/c per neuro
- continue meds except abilify
DVT PPX - Eliquis
Code status - Changed to full code on last admission.
Anticipated Discharge: 24 - 48 hours
Subjective/Interval History
-
Date of Service: June 05, 2024
brown bm, no acute events
Objective Data
-
Labs:
Laboratory Results
06/05/24
05:31
WBC 11.3 H
Hgb 7.5 L
Hct 23.5 L
Plt Count 189
Sodium 137
Potassium 4.4
Chloride 107
Carbon Dioxide 28
BUN 22 H
Creatinine 1.2
Glucose 146 H
Calcium 8.1 L
Total Bilirubin 0.4
AST 17
ALT 11
Alkaline Phosphatase 99
Vital Signs:
Vital Signs
Temp Pulse Resp BP Pulse Ox
97.6 F 80 18 115/76 97
06/05/24 07:02 06/05/24 10:05 06/05/24 07:02 06/05/24 10:05 06/05/24 07:02
I&O
06/04/24 06/05/24 06/06/24
06:59 06:59 06:59
Intake Total 400 / 400
Output Total 200 / 200
Balance 200 / 200
Review of Systems
-
History Source: Patient
All other systems: Not reviewed unless documented
Data Reviewed
-
Labs: Labs Reviewed by me
--- NOTE | 2024-06-05 13:11 | PHANOTE ---
med rec note- called [facility] again for paperwork to be faxed over
[2024-06-05 15:35] VITALS: BP 104/52
[2024-06-05 17:09] LABS: Glucose - Point of Care 204 mg/dl (70-99)
[2024-06-05 21:03] VITALS: BP 106/65
[2024-06-05] MEDS: ELIQUIS 5 MG PO (21:08)
[2024-06-05] MEDS: LIPITOR 40 MG PO (21:08)
[2024-06-05 21:22] LABS: Glucose - Point of Care 226 mg/dl (70-99)
--- NOTE | 2024-06-05 21:23 | PTCARENOTE ---
Sridhar Texted House Provider Gustavo Patel. Pt's BP was initially 80s/40s, but after turning and incontinence care, BP 106/65 HR 92. Pt due to get toprol XL 100mg. Per House Provider, will hold toprol for now and reassess BP in 2 hrs.
[2024-06-05 21:56] LABS: Haptoglobin 136 mg/dL (30-200)
[2024-06-05 23:10] VITALS: BP 98/68
[2024-06-05] MEDS: TOPROL XL PO (23:45)
--- NOTE | 2024-06-06 07:33 | W.PN.HOSP.TC ---
Today's Communication/Plan
-
Monitor hemoglobin on Eliquis, Brilinta
Anticipate discharge within 24 hours if hemoglobin remains stable
restart lantus at half dose
Assessment / Plan
Assessment / Plan
Physical Exam
General: Appears Chronically Ill; No No Apparent Distress, Respiratory Distress or Pain
HEENT: NormoCephalic, Anicteric, Moist mucous membranes, Atraumatic and PERRLA
Respiratory: Clear
Cardiac: S1/S2 and Regular Rhythm
Breast: Deferred by me
GI: Soft, Non Tender, Non Distended and Normal Bowel Sounds
Rectal: Hem Positive
Genito-urinary: Clear Urine
Musculoskeletal: No Clubbing, No Cyanosis, No Edema and Other (R BKA)
Skin: Warm
Neuro: AO x 3 and Nonfocal/grossly intact
Hematologic/Lymphatic: No Lymphadenopathy
Psych: Calm
69 y.o with acute on chronic anemia, presents from rehab for Hgb 7.0 on routine follow up labs. Here in ED Hgb was 7.2. No obvious active bleeding note. Patient himself denies symptoms. Denies seeing any gross hematuria, dark urine, melena,
bloody stools or having any hematemesis. No ongoing large wounds with bleeding. He is HD stable. Denies feeling dizzy, short or breath or lightheaded but is not very active.
PLAN:
#Anemia, chronic
-does not appear to be acute blood loss anemia
-Restart Eliquis night of 3/2�monitor for any bleeding today and if no further bleeding and hemoglobin remained stable, anticipate discharge tomorrow
-No deficiency, MCV normal, normal TSH.
- Eliquis held on last discharge for 1 week; can be restarted (confirmed by urology)- plan for cystoscopy on 06/10
-ferritin WNL
- H&H and transfuse for goal Hgb > 7
- will continue brillanta for now
-PPI
- carb diet as tolerated
� Follow hematology outpatient
#AFIB -
- resume eliquis
- continue metoprolol succinate 100 bid for rate control
# HTN
- continue metoprlol
- hold losartan (to be hled if SBP < 100)
#CVA/CAD - Stent placed August 2023
- continue brillanta and statin
#DM II
- glargine 10 hs, sliding scale insulin aspart
� Restarted 5 u nightly, sliding scale
#Skin - sacral cellulitis
- on Bactrim ds till 06/09
- skin care protocol
# Neuro - had tremors thought 2/2 aripiprazole on last admission. d/c per neuro
- continue meds except abilify
DVT PPX - Eliquis
Code status - Changed to full code on last admission.
Anticipated Discharge: Within 24 hours
Subjective/Interval History
-
Date of Service: June 06, 2024
No acute events overnight, monitor bowel movements now that Eliquis restarted
Objective Data
-
Labs:
Laboratory Results
06/06/24
06:52
WBC Pending
Hgb Pending
Hct Pending
Plt Count Pending
Sodium Pending
Potassium Pending
Chloride Pending
Carbon Dioxide Pending
BUN Pending
Creatinine Pending
Glucose Pending
Calcium Pending
Total Bilirubin Pending
AST Pending
ALT Pending
Alkaline Phosphatase Pending
Vital Signs:
Vital Signs
Temp Pulse Resp BP Pulse Ox
98.4 F 94 10 98/68 95
06/05/24 23:10 06/05/24 23:10 06/05/24 23:10 06/05/24 23:10 06/05/24 23:10
I&O
0306/06/24 06/07/24
06:59 06:59 06:59
Intake Total 400 / 400 360 / 360
Output Total 200 / 200 175 / 175
Balance 200 / 200 185 / 185
Review of Systems
-
History Source: Patient
All other systems: Not reviewed unless documented
Data Reviewed
-
Labs: Labs Reviewed by me
[2024-06-06 07:35] LABS: Hematocrit 23.3 % (39.0-52.0); Hemoglobin 7.6 g/dL (13.0-18.0); Mean Corp Hgb Conc. 32.6 g/dL (33.0-37.0); Mean Corpuscular Hgb 28.7 pg (27.0-31.0); Mean Corpuscular Volume 87.9 fL (80.0-94.0); Mean Platelet Volume 9.4 fL (7.4-10.4); Platelet Count 190 10^3/uL (130-400); Red Blood Cell Count 2.65 10^6/uL (4.70-6.10); Red Cell Dist. Width 15.4 % (11.5-14.5); White Blood Cell Count 7.9 10^3/uL (4.8-10.8)
[2024-06-06 07:42] LABS: Glucose - Point of Care 141 mg/dl (70-99)
[2024-06-06 07:56] VITALS: BP 114/69
[2024-06-06 08:01] LABS: ALT (SGPT) 10 U/L (0-50); AST (SGOT) 18 U/L (17-59); Albumin 2.2 g/dl (3.5-5.0); Alkaline Phosphatase 94 U/L (38-126); Blood Urea Nitrogen 22 mg/dl (9-20); Carbon Dioxide 27 mmol/L (22-30); Chloride 107 mmol/L (98-107); Estimated Creatinine Clearance 91 ml/min; Glucose 147 mg/dl (70-99); Potassium 4.7 mmol/L (3.5-5.1); Sodium 136 mmol/L (135-145); Total Bilirubin 0.3 mg/dl (0.2-1.3); Total Protein 4.9 g/dl (6.3-8.2); eGFR > 60.00
[2024-06-06] MEDS: PROTONIX 40 MG PO ×2 (08:38→20:53)
[2024-06-06] MEDS: DEPAKOTE SPRINKLE 125 MG PO ×2 (08:38→20:54)
[2024-06-06] MEDS: VITAMIN B1 200 MG PO (08:38)
[2024-06-06] MEDS: TOPROL XL 100 MG PO ×2 (08:38→20:54)
[2024-06-06] MEDS: ELIQUIS 5 MG PO ×2 (08:39→20:53)
[2024-06-06] MEDS: BACTRIM DS 800 MG/160 MG 1 TABLET PO ×2 (08:39→20:54)
[2024-06-06] MEDS: BRILINTA 90 MG PO ×2 (08:39→20:53)
[2024-06-06] MEDS: COZAAR 50 MG PO (08:39)
[2024-06-06] MEDS: FLOMAX 0.4 MG PO (08:39)
[2024-06-06] MEDS: LAC HYDRIN, AM LACTIN LOTION 1 APPLIC TOPICAL ×3 (08:40→21:48)
[2024-06-06] MEDS: ZINC OXIDE OINTMENT 1 APPLIC TOPICAL ×3 (08:41→21:46)
[2024-06-06 11:54] LABS: Glucose - Point of Care 201 mg/dl (70-99)
--- NOTE | 2024-06-06 11:58 | WOUNDNOTE ---
[facility] RN note: Patient admitted with anemia. Patient currently resides at [facility] rehab.
See H&P for complete history.
PMH: CVA with L sided weakness, a fib (Eliquis), CAD, DM, R BKA, pneumonia, ASCVD, CKD3, CHF, DM, psychiatric disorder, ORIF LUE, appendectomy, R knee arthroscopy, sacral cellulitis on Bactrim.
Wound Location and type/assessment: Patient admitted with: Red/fragile appearing skin sacral/coccyx. R back dermal abrasion. Mild diffuse red skin on back. R medial anterior BKA dry scab. L campbell small dry scabbed abrasions. Mild MASD
abdominal/groin folds.
Appetite: good.
Pressure redistribution devices in place: Centrella Pro mattress. Patient assists with turning. He needs assist of 2 to turn.
Plan: Patient incontinent of large loose bowel movements. Ivory care given, Waffle air overlay mattress applied and patient turned to L semi side lying position with help from ALMA Hawkins. L heel off bed with pillow. Silicone border foam changed on
sacrum. Silicone border foam applied to R back abrasion. Patient declined a soft heel relief boot.
Will confirm orders with Dr. De Luna and discussed with ALMA Hawkins.
Care plan to be updated and will follow as needed.
Note to case management of equipment requested for discharge: Air mattress at SNF/rehab if not already in place.
--- NOTE | 2024-06-06 15:01 | CM ---
Reviewed the chart notes and spoke with the patient's spouse via telephone. Reviewed IMM. CM continues to be available to patient/family and is monitoring medical plan for needs at discharge.
Plan: Discharge back to [facility] when medically stable.
Call report to: [phone]
Fax report to: [phone]
Medical and transport forms on chart.
[2024-06-06 15:07] VITALS: BP 95/57
--- NOTE | 2024-06-06 16:23 | PTCARENOTE ---
Patient's BP taken by tech for 1500 vitals 95/57 HR 95. Patient laying in bed, states no complaints. MD made aware, hold parameters added to Toprol XL to hold for systolic <90. Patient with small, loose brown BMs throughout shift mixed with urine.
Patient denies abd pain/cramping, nausea. MD made aware, outstanding stool sample for norovirus ordered.
[2024-06-06 16:42] LABS: Glucose - Point of Care 194 mg/dl (70-99)
[2024-06-06] MEDS: NOVOLOG FLEXPEN-LOW RESISTANCE 1 UNITS SC (17:00)
--- NOTE | 2024-06-06 18:46 | PTCARENOTE ---
Patient with outstanding stool sample for norovirus d/t 3 small loose brown bowel movements throughout shift; patient states he does not believe he has BMs this frequently at baseline, denies any abd pain/cramping or nausea, tolerating regular diet.
Patient with 175 ml dark tea colored urine output in urinal, patient states no concerns, refusing to be turned or changed at this time. MD sent TT with picture of urine, no new orders at this time.
[2024-06-06 21:16] LABS: Glucose - Point of Care 181 mg/dl (70-99)
[2024-06-06] MEDS: LIPITOR 40 MG PO (21:42)
[2024-06-06] MEDS: LANTUS 0.05 UNITS SC (21:44)
[2024-06-06 23:26] VITALS: BP 115/69
[2024-06-07] VITALS (7 sets, daily range): BP systolic 92–114; BP diastolic 49–72; BMI 29.6
[2024-06-07 06:35] LABS: Hematocrit 21.9 % (39.0-52.0); Mean Corpuscular Hgb 28.5 pg (27.0-31.0); Mean Platelet Volume 9.5 fL (7.4-10.4); Platelet Count 176 10^3/uL (130-400); Red Blood Cell Count 2.46 10^6/uL (4.70-6.10); Red Cell Dist. Width 15.2 % (11.5-14.5); White Blood Cell Count 7.7 10^3/uL (4.8-10.8)
[2024-06-07 06:52] LABS: ALT (SGPT) 14 U/L (0-50); AST (SGOT) 22 U/L (17-59); Alkaline Phosphatase 99 U/L (38-126); Blood Urea Nitrogen 22 mg/dl (9-20); Calcium 7.9 mg/dl (8.4-10.2); Carbon Dioxide 26 mmol/L (22-30); Chloride 105 mmol/L (98-107); Estimated Creatinine Clearance 73 ml/min; Glucose 183 mg/dl (70-99); Potassium 4.7 mmol/L (3.5-5.1); Sodium 136 mmol/L (135-145); Total Bilirubin 0.5 mg/dl (0.2-1.3); Total Protein 4.9 g/dl (6.3-8.2); eGFR > 60.00
[2024-06-07 07:39] LABS: Glucose - Point of Care 181 mg/dl (70-99)
[2024-06-07] MEDS: NOVOLOG FLEXPEN-LOW RESISTANCE 1 UNITS SC ×2 (09:39→17:37)
[2024-06-07] MEDS: VITAMIN B1 200 MG PO (09:40)
[2024-06-07] MEDS: TOPROL XL 100 MG PO ×2 (09:40→20:37)
[2024-06-07] MEDS: PROTONIX 40 MG PO ×2 (09:41→20:35)
[2024-06-07] MEDS: ELIQUIS 5 MG PO (09:43)
[2024-06-07] MEDS: DEPAKOTE SPRINKLE 125 MG PO ×2 (09:43→20:38)
[2024-06-07] MEDS: BRILINTA 90 MG PO ×2 (09:43→20:35)
[2024-06-07] MEDS: BACTRIM DS 800 MG/160 MG 1 TABLET PO ×2 (09:43→20:35)
[2024-06-07] MEDS: FLOMAX 0.4 MG PO (09:47)
[2024-06-07] MEDS: COZAAR 50 MG PO (09:47)
[2024-06-07] MEDS: ZINC OXIDE OINTMENT 1 APPLIC TOPICAL ×2 (09:52→22:49)
[2024-06-07] MEDS: LAC HYDRIN, AM LACTIN LOTION 1 APPLIC TOPICAL ×2 (09:52→22:47)
--- NOTE | 2024-06-07 11:22 | W.PN.HOSP.TC ---
Today's Communication/Plan
-
see A/P
Assessment / Plan
Assessment / Plan
HPI: 69 yo with acute on chronic anemia, presented from rehab for Hgb 7.0 on routine follow up labs. Here in ED Hgb was 7.2. No obvious active bleeding noted. Patient himself denies symptoms. Denies seeing any gross hematuria, dark urine,
melena, bloody stools or having any hematemesis. No ongoing large wounds with bleeding. He is HD stable. Denies feeling dizzy, short or breath or lightheaded but is not very active.
A/P
# Anemia, chronic
# Hematuria
does not appear to be acute blood loss anemia
noted downward trend of Hgb
s/p 1 unit PBRC, transfuse additional PRBC for Hgb 7.0 today
Noted Eliquis restarted on 06/05, hold further Eliquis
Iron panel reviewed, mixed picture (ferritin WNL, low TIBC)
Uro CS, apparently pt has plan for cystoscopy on 06/10
Continue brillanta for now
PPI
carb diet as tolerated
Follow hematology outpatient
# AFIB
Noted Eliquis restarted on 06/05, hold further Eliquis
continue metoprolol succinate 100 bid for rate control
# HTN
continue metoprolol and losartan with holding parameter
# CVA
# CAD
# h/o PCI August 2023 poss at [facility]
continue brillanta and statin
# DM II
[employer] glargine 10 hs, sliding scale insulin aspart
Restarted 5u nightly, sliding scale
# Skin - sacral cellulitis
on Bactrim ds till 06/09
skin care protocol
# Neuro - had tremors thought 2/2 aripiprazole on last admission which was d/c per neuro
continue meds except abilify
# R BKA
DVT PPX - Eliquis on hold, start SCD
Code status - Changed to full code on last admission.
total time spent 51 min
Anticipated Discharge: 24 - 48 hours
Subjective/Interval History
-
Date of Service: June 07, 2024
Objective Data
-
Labs:
Laboratory Results
06/07/24
05:12
WBC 7.7
Hgb 7.0 L
Hct 21.9 L
Plt Count 176
Sodium 136
Potassium 4.7
Chloride 105
Carbon Dioxide 26
BUN 22 H
Creatinine 1.2
Glucose 183 H
Calcium 7.9 L
Total Bilirubin 0.5
AST 22
ALT 14
Alkaline Phosphatase 99
Vital Signs:
Vital Signs
Temp Pulse Resp BP Pulse Ox
36.7 C 94 18 114/72 97
06/07/24 07:56 06/07/24 09:40 06/07/24 07:56 06/07/24 09:40 06/07/24 11:11
I&O
06/06/24 06/07/24 06/08/24
06:59 06:59 06:59
Intake Total 360 / 360 960 / 960
Output Total 175 / 175 925 / 925
Balance 185 / 185 35 / 35
Review of Systems
-
Genitourinary: Reports Dark Urine
Physical Exam
-
General: Well Developed, No Apparent Distress, Comfortable, Conversant and Appears Chronically Ill; Negative Respiratory Distress
HEENT: Normocephalic, Atraumatic, Nose Appears Normal and Ears Appear Normal; Negative Oxygen
Respiratory: Clear to Auscultation and Non Labored Respirations; Negative Accessory Resp Muscle Use
Cardiac: Regular Rhythm and S1/S2
GI: Soft, Nontender, Nondistended and Normal Bowel Sounds
Musculoskeletal: Other (R BKA)
Skin: Warm and Dry
Neuro: Awake, Alert and Tremors
Psych: Calm and Intact Judgement/Insight (somewhat)
Data Reviewed
-
Labs: Labs Reviewed by me
--- NOTE | 2024-06-07 12:06 | CONS.URO ---
Consultation
-
Requesting Provider: Lore
Performing Provider: Izaiah
Reason for Consultation: hematuria
Medical History
History of Present Illness
Dr Gregg's recent outpatient note, excerpted: '�69M seen in 04/2024 for gross hematuria
He had a mild self limited episode and urine cleared on its own - it did remain dark for some time as he likely has some chronic urinary retention
CT scan during admit showed dependent calcific debris in both bladder and kidneys'
pt denies current gross hematuria
Past Medical History
Past Medical History: Other (Hypertension ASCVD Left Hemiparesis s/p CVA GERD Paroxysmal A-Fib / Flutter CKD III CHF - Unknown Type DM-II Psychiatric Disorder)
Allergies/Home Medications
Allergies
Allergy/AdvReac Type Severity Reaction Status Date / Time
Penicillins Allergy Swelling Verified 06/03/24 23:43
Home Medications
�Medication �Instructions �Recorded �Confirmed �Type
acetaminophen 325 mg tablet 650 mg PO Q4HPRN PRN Temp > 100, 04/29/24 06/05/24 History
(Tylenol) mild pain
ammonium lactate 12 % lotion 1 applic topical TID B/L LOWER 04/29/24 06/05/24 History
(AmLactin) EXTREMITES
aripiprazole 10 mg tablet (Abilify) 10 mg PO HS Mental Health/Anxiety 04/29/24 06/05/24 History
atorvastatin 40 mg tablet 40 mg PO HS High Cholesterol 04/29/24 06/05/24 History
fluticasone propionate 50 1 spray intranasal DAILYPRN PRN 04/29/24 06/05/24 History
mcg/actuation nasal ALLERGIES
spray,suspension
insulin glargine 100 unit/mL (3 10 unit SC HS Diabetes 04/29/24 06/05/24 History
mL) subcutaneous pen
insulin lispro 100 unit/mL 1 sliding scale dose SC AC Diabetes 04/29/24 06/05/24 History
subcutaneous pen
losartan 50 mg tablet 50 mg PO DAILY Blood Pressure 04/29/24 06/05/24 History
pantoprazole 40 mg tablet,delayed 40 mg PO BID GERD 04/29/24 06/05/24 History
release
thiamine HCl (vitamin B1) 100 mg 100 mg PO BID Supplement 04/29/24 06/05/24 History
tablet
ticagrelor 90 mg tablet 90 mg PO BID Blood Clot 04/29/24 06/05/24 History
Prevention/Tx
bisacodyl 10 mg rectal suppository 10 mg [place] DAILYPRN PRN IF NO BM 04/30/24 06/05/24 History
(Dulcolax (bisacodyl)) AFTR MOM
magnesium hydroxide 400 mg/5 mL 2,400 mg PO DAILYPRN PRN IF NO BM 04/30/24 06/05/24 History
oral suspension (Milk of Magnesia) BY 3RD DAY
zinc oxide 10 % topical ointment 1 applic topical DAILYPRN PRN B/L 04/30/24 06/05/24 History
BUTTOCK
metoprolol succinate 100 mg 100 mg PO BID #0 tabs 05/06/24 06/05/24 Rx
tablet,extended release 24 hr
tamsulosin 0.4 mg capsule 0.4 mg PO DAILY #0 caps 05/06/24 06/05/24 Rx
apixaban 5 mg tablet (Eliquis) 5 mg PO BID 06/05/24 06/05/24 History
divalproex 125 mg tablet,delayed 125 mg PO BID 06/05/24 06/05/24 History
release
oxycodone 5 mg tablet 5 mg PO BIDPRN PRN severe pains 06/05/24 06/05/24 History
sulfamethoxazole 800 1 tab PO BID 06/05/24 06/05/24 History
mg-trimethoprim 160 mg tablet
(Bactrim DS)
Physical Exam
Vital Signs
Vital Signs
Temp Pulse Resp BP Pulse Ox
98.6 F 86 16 99/66 97
06/07/24 11:57 06/07/24 11:57 06/07/24 11:57 06/07/24 11:57 06/07/24 11:57
Lab / Testing Results
Laboratory Results
06/07/24 05:12
06/07/24 05:12
Assessment / Plan
-
recent h/o hematuria
possible urolithiasis
plan was for stoppage of anticoagulants and outpatient cystoscopy
Rec: hold anticoagulants/antiplatelets
Data Reviewed
-
Old Records: Reviewed
[2024-06-07 13:32] LABS: Glucose - Point of Care 221 mg/dl (70-99)
[2024-06-07] MEDS: NOVOLOG FLEXPEN-LOW RESISTANCE 2 UNITS SC (13:33)
--- NOTE | 2024-06-07 13:34 | CM ---
Reviewed the chart notes. CM continues to be available to patient/family and is monitoring medical plan for needs at discharge.
Plan: Discharge back to [facility] when medically stable.
Call report to: [phone]
Fax report to: [phone]
Medical and transport forms on chart.
[2024-06-07] MEDS: LAC HYDRIN, AM LACTIN LOTION TOPICAL (16:31)
[2024-06-07] MEDS: ZINC OXIDE OINTMENT TOPICAL (16:32)
[2024-06-07 17:28] LABS: Glucose - Point of Care 156 mg/dl (70-99)
[2024-06-07 21:06] LABS: Glucose - Point of Care 180 mg/dl (70-99)
[2024-06-07] MEDS: LANTUS 0.05 UNITS SC (22:46)
[2024-06-07] MEDS: LIPITOR 40 MG PO (22:46)
[2024-06-08] MEDS: IMODIUM 2 MG PO (02:19)
[2024-06-08 05:38] VITALS: BMI 29.3
[2024-06-08 07:18] LABS: Glucose - Point of Care 176 mg/dl (70-99)
[2024-06-08 07:48] LABS: Hematocrit 24.4 % (39.0-52.0); Hemoglobin 7.9 g/dL (13.0-18.0); Mean Corp Hgb Conc. 32.4 g/dL (33.0-37.0); Mean Corpuscular Hgb 29.2 pg (27.0-31.0); Mean Platelet Volume 9.5 fL (7.4-10.4); Platelet Count 187 10^3/uL (130-400); Red Blood Cell Count 2.71 10^6/uL (4.70-6.10); Red Cell Dist. Width 15.4 % (11.5-14.5)
[2024-06-08 07:55] VITALS: BP 116/68
[2024-06-08] MEDS: VITAMIN B1 200 MG PO (08:48)
[2024-06-08] MEDS: NOVOLOG FLEXPEN-LOW RESISTANCE 1 UNITS SC ×2 (08:48→11:50)
[2024-06-08] MEDS: DEPAKOTE SPRINKLE 125 MG PO (08:48)
[2024-06-08] MEDS: FLOMAX 0.4 MG PO (08:49)
[2024-06-08] MEDS: BRILINTA 90 MG PO (08:49)
[2024-06-08] MEDS: BACTRIM DS 800 MG/160 MG 1 TABLET PO (08:49)
[2024-06-08] MEDS: PROTONIX 40 MG PO (08:49)
[2024-06-08] MEDS: TOPROL XL 100 MG PO (08:49)
[2024-06-08 08:50] LABS: Blood Urea Nitrogen 24 mg/dl (9-20); Carbon Dioxide 25 mmol/L (22-30); Chloride 106 mmol/L (98-107); Estimated Creatinine Clearance 68 ml/min; Glucose 162 mg/dl (70-99); Magnesium 1.5 mg/dl (1.6-2.3); Sodium 136 mmol/L (135-145); eGFR > 60.00
[2024-06-08] MEDS: COZAAR 50 MG PO (08:50)
[2024-06-08] MEDS: LAC HYDRIN, AM LACTIN LOTION 1 APPLIC TOPICAL (08:50)
[2024-06-08] MEDS: ZINC OXIDE OINTMENT 1 APPLIC TOPICAL (08:51)
--- NOTE | 2024-06-08 10:10 | PTCARENOTE ---
pt refused multiple times to be turn. uncooperative towards this rn and tech. no s/s of distress noted.call perez within reach.
--- NOTE | 2024-06-08 10:17 | WOUNDNOTE ---
WOC RN note: Sridhar Mackenzie re: recommend an air mattress at SNF if not already in place. He is high risk for a pressure injury.
[2024-06-08] MEDS: MAGNESIUM SULFATE 50 IV (10:46)
--- NOTE | 2024-06-08 10:55 | W.PN.HOSP.TC ---
Addendum entered and electronically signed by Carmelina Torrez MD 06/08/24 15:19:
# Acute blood loss anemia with baseline chronic anemia
# Hypomagnesemia, repleted
Addendum entered and electronically signed by Carmelina Torrez MD 06/08/24 14:57:
total DC time 39 min
Original Note:
Today's Communication/Plan
-
see A/P
DC back to [place] today
Assessment / Plan
Assessment / Plan
HPI: 69 yo with acute on chronic anemia, presented from rehab for Hgb 7.0 on routine follow up labs. Here in ED Hgb was 7.2. No obvious active bleeding noted. Patient himself denies symptoms. Denies seeing any gross hematuria, dark urine,
melena, bloody stools or having any hematemesis. No ongoing large wounds with bleeding. He is HD stable. Denies feeling dizzy, short or breath or lightheaded but is not very active.
A/P
# Acute on chronic anemia, 2/2 recurrent Hematuria
s/p 2 units PBRC transfusion
Hgb responded appropriately to 7.9 today
Iron panel reviewed, mixed picture (ferritin WNL, low TIBC)
appreciate Uro input, recc holding anticoagulant/antiplatelet for outpatient cystoscopy on 06/10
Eliquis has been held, stop further Brilinta
PPI
carb diet as tolerated
Follow hematology outpatient
# AFIB
Noted Eliquis restarted on 06/05, hold further Eliquis
continue metoprolol succinate 100 bid for rate control
# HTN
continue metoprolol and losartan with holding parameter
# CVA
# CAD
# h/o PCI August [address] [facility]
stop further Brilinta (PCI is almost one year)
# DM II
FINISHER DENTURE glargine 10 hs, sliding scale insulin aspart
Restarted 5u nightly, sliding scale
# Skin - sacral cellulitis
on Bactrim ds till 06/09
skin care protocol
# Neuro - had tremors thought 2/2 aripiprazole on last admission which was d/c per neuro
continue meds except abilify
# R BKA
DVT PPX - Eliquis on hold, start SCD
Code status - Changed to full code on last admission.
updated on the phone
Anticipated Discharge: Today
Subjective/Interval History
-
Date of Service: June 08, 2024
Objective Data
-
Labs:
Laboratory Results
06/08/24
07:25
WBC 9.0
Hgb 7.9 L
Hct 24.4 L
Plt Count 187
Sodium 136
Potassium 5.0
Chloride 106
Carbon Dioxide 25
BUN 24 H
Creatinine 1.3
Glucose 162 H
Calcium 8.0 L
Vital Signs:
Vital Signs
Temp Pulse Resp BP Pulse Ox
36.4 C 96 16 116/68 95
06/08/24 07:55 06/08/24 08:50 06/08/24 07:55 06/08/24 08:50 06/08/24 07:55
I&O
06/07/24 06/08/24 06/09/24
06:59 06:59 06:59
Intake Total 960 / 960 970 / 970
Output Total 925 / 925 875 / 875
Balance 35 / 35 95 / 95
Review of Systems
-
All other systems: Reviewed and negative
Physical Exam
-
General: Well Developed, No Apparent Distress, Comfortable, Conversant and Appears Chronically Ill; Negative Respiratory Distress
HEENT: Normocephalic, Atraumatic, Nose Appears Normal and Ears Appear Normal; Negative Oxygen
Respiratory: Clear to Auscultation and Non Labored Respirations; Negative Accessory Resp Muscle Use
Cardiac: Regular Rhythm and S1/S2
GI: Soft, Nontender, Nondistended and Normal Bowel Sounds
Musculoskeletal: Other (R BKA)
Skin: Warm and Dry
Neuro: Awake, Alert and Tremors
Psych: Calm and Intact Judgement/Insight (somewhat)
Data Reviewed
-
Labs: Labs Reviewed by me
--- NOTE | 2024-06-08 11:02 | CM ---
Addendum entered by Radha Mackenzie RN 06/08/24 14:41:
Correction:
Original Note:
Reviewed the chart notes. Updated CM referral and progress notes sent via [facility]. Additionally, CM notified facility of need for air mattress if not already in place. CM continues to be available to patient/family and is monitoring medical
plan for needs at discharge.
Plan: Discharge back to [facility] when medically stable.
Call report to: [phone]
Fax report to: [phone]
Medical and transport forms on chart.
[2024-06-08 11:49] LABS: Glucose - Point of Care 158 mg/dl (70-99)
--- NOTE | 2024-06-08 11:56 | W.DCSUMMARY ---
Discharge Summary
Discharge Data
Date of Admission: 06/04/24
Date of Discharge: 06/08/24
-
Pending Results: No
Hospital Course
Principal Diagnosis:
Acute on chronic anemia, due to recurrent hematuria, s/p 2 units PBRC transfusion this admission.
Chronic Diagnoses:�
Atrial fibrillation/atrial flutter, on Eliquis prior to admission
Hypertension, on metoprolol and losartan
History of stroke
History of coronary artery disease with PCI in August 2023 at outside hospital. He was on Brilinta prior to admission
Insulin-dependent diabetes
Tremor, possibly due to aripiprazole
Right below knee amputation
Consultations:�
Urology
Procedures:�
None
Clinical course:�
This is a 69 year old male with past medical history as stated above, who presented from his half-way for routine blood work that showed low hemoglobin at 7.0.
Problem 1:
Acute on chronic anemia, due to recurrent hematuria, s/p 2 units PBRC transfusion this admission.
His hemoglobin responded appropriately, and was at 7.9 on the day of discharge.
His iron panel was reviewed, which showed mixed picture (ferritin WNL, low TIBC).
Urology was consulted this admission and recommend to hold anticoagulation and antiplatelet until outpatient cystoscopy on 06/10/2024
The patient has been informed to follow-up with urology for the already scheduled outpatient cystoscopy.
Anticoagulation and antiplatelet to be determined after the procedure.
As for the rest of his medical problems, they were stable during his hospital stay.
Discharge Plan
-
Patient Disposition: Fdc/SNF
Discharge Diagnosis/Procedures: Acute on chronic anemia likely due to recurrent hematuria (pending outpatient cystoscopy on 06/10)
Condition: Fair
Diet: As tolerated and Diabetic, Carb Controlled
Activity: As tolerated
Driving Restrictions: No driving
Blood Work: CBC, BMP, Mag level in 1 week with your PCP
Wound Care: Wound Care Instructions
R back open abrasion-clean with saline, silicone border foam, change every 3 days and as needed for loosened dressing.
Sacrum-clean with saline or soap and water, apply protective silicone border foam, change q 3 days and prn loosened dressing. If foam ineffective, apply zinc barrier ointment TID instead.
Zinc oxide to affected areas TID.
Turning schedule
Elevate L heel off bed with pillow/s.
Pressure redistributing chair cushion (i.e. Roho, Air chair cushion).
Air mattress.
Follow up with wound critical care nurse practitioner.
Referrals:
Lukasz Gant MD [Family Provider] - in less than 1 week
Additional Discharge Medication Instructions: Hold Eliquis and Brillinta until your cystoscopy procedure on 06/10. Resume Eliquis and Brillinta IF cleared by urology.
Stop Abilify
Prescriptions:
Continued
losartan 50 mg Tablet
50 mg PO DAILY
atorvastatin 40 mg Tablet
40 mg PO HS
acetaminophen [Tylenol] 325 mg Tablet
650 mg PO Q4HPRN PRN (Reason: Temp > 100, mild pain)
ammonium lactate [AmLactin] 12 % Lotion
1 applic TOPICAL TID
thiamine HCl (vitamin B1) 100 mg Tablet
100 mg PO BID
pantoprazole 40 mg Tablet,Delayed Release (Dr/Ec)
40 mg PO BID
fluticasone propionate 50 mcg/actuation [place],Suspension
1 spray INTRANASAL DAILYPRN PRN (Reason: ALLERGIES)
insulin lispro 100 unit/mL Insulin Pen
1 sliding scale dose SC AC
Rx Instructions:
150-200=2UNITS, 201-250=4UNITS
magnesium hydroxide [Milk of Magnesia] 400 mg/5 mL Suspension
2,400 mg PO DAILYPRN PRN (Reason: IF NO BM BY 3RD DAY)
bisacodyl [Dulcolax (bisacodyl)] 10 mg Suppository
10 mg [place] DAILYPRN PRN (Reason: IF NO BM AFTR MOM)
zinc oxide 10 % Ointment
1 applic TOPICAL DAILYPRN PRN (Reason: B/L BUTTOCK)
metoprolol succinate 100 mg Tablet Extended Release 24 Hr
100 mg PO BID Qty: 0 0RF
tamsulosin 0.4 mg Capsule
0.4 mg PO DAILY Qty: 0 0RF
sulfamethoxazole-trimethoprim [Bactrim DS] 800-160 mg Tablet
1 tab PO BID
Rx Instructions:
take until 06/15/23
divalproex 125 mg Tablet,Delayed Release (Dr/Ec)
125 mg PO BID
oxycodone 5 mg Tablet
5 mg PO BIDPRN PRN (Reason: severe pains) Qty: 7 0RF
Changed
insulin glargine 100 unit/mL (3 mL) Insulin Pen
5 unit SC HS Qty: 0 0RF
Held
ticagrelor 90 mg Tablet
90 mg PO BID
Hold Instructions: Resume on 06/15/24. until cystoscopy procedure
Eliquis 5 mg Tablet
5 mg PO BID
Hold Instructions: Resume on 06/15/24. hold until cystoscopy procedure
Discontinued
aripiprazole [Abilify] 10 mg Tablet
10 mg PO HS
Discharge Orders:
Discharge Patient (As Directed); Ordered 06/08/24
Ordered By: Carmelina Torrez
Discharge Date and Time
Print Language: ROMANIAN
--- NOTE | 2024-06-08 14:55 | PN.CDI ---
CDI
- -
CDI:
Physician Documentation Request
Admit Date: 06/04/24 05:59
Dear Doctor Lore,
Clinical Indicators:
Patient admitted with acute on chronic anemia.
3/5 PN, 'Acute on chronic anemia, 2/2 recurrent Hematuria...Iron panel reviewed, mixed picture (ferritin WNL, low TIBC)'
PRBCs 2 units transfused.
Hgb/Hct trend:
06/04/24 06/05/24 06/07/24
09:53 05:31 05:12
Hgb 8.1 L 7.5 L 7.0 L
Hct 25.6 L 23.5 L 21.9 L
Based on the above, could you clarify, in your progress note, which of the following is the most likely type of anemia you are evaluating, monitoring and/or treating?
Acute blood loss anemia with baseline chronic anemia
Baseline anemia only
Other, please specify
Use of terms such as suspected, likely, concern for, or probable (associated with a specific diagnosis that is being evaluated, monitored, or treated as if it exists) are acceptable and can be coded in the inpatient setting, when documented at the
time of discharge.
Thank you,
Janene Langston RN BSN
CDI Specialist
available via tiger text
Please use your independent medical judgment in providing your response.
[2024-06-08 15:05] VITALS: BP 99/62
--- NOTE | 2024-06-08 15:13 | PN.CDI ---
CDI
- -
CDI:
Physician Documentation Request
Admit Date: 06/04/24 05:59
Dear Doctor Lore,
Clinical Indicators:
Patient admitted with acute on chronic anemia due to recurrent hematuria.
3/5 Magnesium sulfate 2 gm IV rider x 1.
Magnesium level:
06/08/24
07:25
Magnesium 1.5 L
Based on the above, could you clarify in the progress notes, the appropriate diagnosis, if significant, that supports the above abnormalities and additional evaluation, monitoring and/or treatment rendered:
Hypomagnesemia
Abnormal lab value, clinically insignificant
Other
Use of terms such as suspected, likely, concern for, or probable (associated with a specific diagnosis that is being evaluated, monitored, or treated as if it exists) are acceptable and can be coded in the inpatient setting, when documented at the
time of discharge.
Thank you,
Janene Langston RN BSN
CDI Specialist
available via tiger text
Please use your independent medical judgment in providing your response.
[2024-06-08] MEDS: ZINC OXIDE OINTMENT TOPICAL (15:53)
[2024-06-08] MEDS: LAC HYDRIN, AM LACTIN LOTION TOPICAL (15:53)
[2024-06-08 16:02] VITALS: BP 112/60
== END 2024-06-08 17:39 | DRG 812 ==
LOC: 2 NORTH 05:59
PROVIDERS: Emergency Medicine; Internal Medicine; ADMITTING PHYSICIAN Internal Medicine; ATTENDING PHYSICIAN Internal Medicine; CONSULT PHYSICIAN Specialist; EMERGENCY PHYSICIAN Emergency Medicine; FAMILY PHYSICIAN Internal Medicine
PROC: 30233N1 Transfusion of Nonautologous Red Blood Cells into Peripheral Vein, Percutaneous Approach (ICD-10-PCS; 2024-06-04)
DX: D62 Acute posthemorrhagic anemia (principal); I48.92 Unspecified atrial flutter; I13.0 Hypertensive heart and chronic kidney disease with heart failure and stage 1 through stage 4 chronic kidney disease, or unspecified chronic kidney disease; L03.312 Cellulitis of back [any part except buttock and flank]; I69.354 Hemiplegia and hemiparesis following cerebral infarction affecting left non-dominant side; I48.0 Paroxysmal atrial fibrillation; Z79.01 Long term (current) use of anticoagulants; I50.9 Heart failure, unspecified; N18.30 Chronic kidney disease, stage 3 unspecified; Z79.899 Other long term (current) drug therapy; I25.10 Atherosclerotic heart disease of native coronary artery without angina pectoris; Z89.511 Acquired absence of right leg below knee; E11.22 Type 2 diabetes mellitus with diabetic chronic kidney disease; Z88.0 Allergy status to penicillin; E78.00 Pure hypercholesterolemia, unspecified; K21.9 Gastro-esophageal reflux disease without esophagitis; Z79.4 Long term (current) use of insulin; Z98.61 Coronary angioplasty status; D64.9 Anemia, unspecified; E83.42 Hypomagnesemia
CPT/HCPCS: 36430; 80048; 80053; 81003; 81015; 82607; 82728; 82746; 82962; 83010; 83540; 83550; 83615; 83735; 84443; 85014; 85018; 85025; 85027; 85045; 85610; 86850; 86900; 86901; 86920; 87798; 96374; 99284; P9016

== ENCOUNTER 2024-07-15 00:42 | Inpatient (IN) | payer MEDICARE, BC, SELFPAY ==
--- NOTE | 2024-07-14 21:04 | ED.GENMED ---
History of Present Illness
General
Chief Complaint: Fatigue
Source: patient and ambulance crew
Exam Limitations: altered mental status
Time Seen by Provider: 07/14/24 20:59
History of Present Illness
History of Present Illness:
See MDM
Past History
Past History
ED Past Medical History: Arrthythmia, CAD, CHF, CVA, GERD, HTN, Hypercholesterolemia, NIDDM, Renal failure, Psychiatric and Other (Anemia, staghorn calculus, bladder stones)
ED Past Surgical History: Orthopedic
Social History
Tobacco: Non-smoker
Alcohol: None
Personal:
Living: half-way
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
Family History
Family History: Other (Noncontributory)
Phy Exam
Physical Exam
Physical Exam:
See MDM
Scores
NIH Stroke Score
Level of Consciousness: 1 - Arousable
LOC Questions: 1-Answers one correctly
LOC Commands: 0-Performs both correctly
Best Horizontal Gaze: 0-Normal
Visual Berg: 0=Normal, no visual loss
Facial Palsy: 0=Normal, symmetrical
Motor - Right Arm: 0=No drift 10 seconds
Motor - Left Arm: 1=Drift < 10 seconds
Motor - Right Le-No drift 5 seconds
Motor - Left Le-Drift < 5 seconds
Limb Ataxia: 0-Absent
Sensation: 0-Normal
Best Language: 0-No aphasia
Dysarthria: 0-Normal
Extinction and Inattention: 0-No abnormality
Total Score:: 4
Course
Orders/Labs/Results
Orders:
Orders
07/14/24 21:02
CT Head W/o Iv Contrast Urgent
Comment:
Reason For Exam: recent stroke, increased weakness
07/14/24 21:03
Electrocardiogram (*1) Urgent
Reason for Study: Fatigue / Weakness
EKG- Treatment ONCE
07/14/24 21:06
CR Chest Portable - 1 View Urgent
Comment:
Reason For Exam: weakness
Reason Study Needs to be Portable: Patient Unstable
07/14/24 21:11
Complete Blood Count/With Diff Urgent
Comprehensive Metabolic Panel Urgent
07/14/24 22:29
Urinalysis Reflex To Culture Urgent
Date Specimen was Collected: 07/14/24
Time Specimen was Collected: 22:28
Urine Microscopic Reflex Cult Urgent
Urine Culture Urgent
ROSS Source: U
Specimen Description:
Date Specimen was Collected: 07/14/24
Time Specimen was Collected: 22:28
Abnormal Lab Results
07/14/24 07/14/24
21:11 22:29
WBC 16.4 H 10^3/uL
(4.8-10.8)
RBC 3.27 L 10^6/uL
(4.70-6.10)
Hgb 9.3 L g/dL
(13.0-18.0)
Hct 28.7 L %
(39.0-52.0)
MCHC 32.4 L g/dL
(33.0-37.0)
RDW 14.6 H %
(11.5-14.5)
Abs Immat Gran (auto) 0.1 H 10^3/uL
(0-0.05)
Absolute Neuts (auto) 15.3 H 10^3/uL
(1.4-6.5)
Absolute Lymphs (auto) 0.6 L 10^3/uL
(1.2-3.4)
Neutrophils % 93.7 H %
(42.2-75.2)
Lymphocytes % 3.4 L %
(20.5-51.1)
BUN 50 H mg/dl
(9-20)
Glucose 191 H mg/dl
(70-99)
Alkaline Phosphatase 128 H U/L
(38-126)
Albumin 3.3 L g/dl
(3.5-5.0)
Ur Occult Blood Reflex 4+ A
(Negative)
Urine RBC 80-90 A /HPF
(0-2)
Urine Bacteria (Reflex) Moderate A
(Negative)
Urine Albumin (Reflex) 2+ A
(Neg - Trace)
07/14/24 21:11
07/14/24 21:11
Vital Signs
Initial and Last Documented VS:
Initial Vital Signs
Temp Pulse Ox
98.1 F 95
07/14/24 21:02 07/14/24 21:02
Last Documented Vital Signs
Temp Pulse Resp BP Pulse Ox
98.1 F 94 17 93/58 95
07/14/24 21:02 07/14/24 23:07 07/14/24 23:07 07/14/24 23:07 07/14/24 23:07
MDM/Problems Addressed
Differential Diagnosis Includes:
HPI and MDM Narrative:
69-year-old male presenting from the nursing facility for evaluation of altered mental status. Apparently, patient is more fatigued and tired than normal. He appears more confused. Patient recently had stroke, per EMS. Patient does complain of
chronic left-sided weakness. He does appear pale. Prior records indicate history of hematuria requiring blood transfusion and GI bleeding. At that time, patient was on Eliquis. It Is uncertain if his Eliquis is still on hold or not. Patient is
very fatigued and pale. Will obtain hemoglobin testing. Given recent history of sepsis secondary pneumonia, will obtain chest x-ray. Will obtain urinalysis.
Physical exam
General: Weak and fatigued.
HEENT: protecting airway
Neck: supple
CV: No evidence of cyanosis. Regular rate, irregular rhythm
Resp: No accessory muscle use. Poor air exchange
Abd: Non-distended and nontender
Extremities: Right BKA
Neuro: alert but disoriented
Psych: Flat affect
Skin: Pale
Problems Addressed including Acute and Chronic Conditions affecting care:
1. Weakness and disoriented
Acuity: acute
Prognosis: stable
Details: Will rule out metabolic encephalopathy. Will obtain CT head, chest x-ray and urinalysis
Updates
10:30 PM radiology called indicating concern for possible subacute stroke. Given his bleeding issues, patient was offered Eliquis for a while. He has baseline a flutter/A-fib. It is possible he threw a clot.
Differential Diagnosis (but not limited to): Hyponatremia, symptomatic anemia, UTI, intracranial hemorrhage, pneumonia, polypharmacy
Testing considered: Blood cultures but he is afebrile
Drug therapy (if applicable): OTC meds, please see d/c instruction regarding Rx drugs
Amount and/or Complexity of Data Reviewed
Clinical info obtained from: Patient
External data reviewed: Recent history of hematuria and GI bleeding requiring blood trend. Recent brain MRI 3 months ago does not show evidence of stroke
Labs I independently reviewed (but not limited to): Leukocytosis
Radiology: The CT scan was personally and independently reviewed. In addition, official CT report reviewed.
Pulse Ox: not hypoxic
EKG independently reviewed: A flutter, normal axis, no STEMI
Dimmer Board Operator: A flutter
Critical Care: N/A
Risk of Complication:
Social Determinants of health: Good social support
Discussed with other providers: Radiology, hospitalist
Escalation of Care includes Admit/Obs: Given the altered mental status and concern for subacute stroke, will admit
Occasional wrong word or 'sound a like' substitutions may have occurred due to the inherent limitations of voice recognition software. Read the chart carefully and recognize, using context, where substitutions have occurred.
*Critical Care Note
Total Time (30-74mins, 75-104mins- exclusive of procedures): Not Applicable
ED Attending Note
-
Portions of this chart may have been created with voice recognition software.� Occasional wrong word or��sound alike� substitutions may have occurred due to the inherent limitations of voice recognition software.
Discharge Plan
Departure
Patient Disposition: Admit
Date of Disposition: 07/14/24
Time of Disposition: 23:32
Admit to: Telemetry
Presentation/result/management discussed w/ accepting MD/DO: Hospitalist
Discharge Problem:
Acute CVA (cerebrovascular accident), Hematuria, Anemia
Prescriptions:
No Action
losartan 50 mg Tablet
50 mg PO DAILY
atorvastatin 40 mg Tablet
40 mg PO HS
acetaminophen [Tylenol] 325 mg Tablet
650 mg PO Q4HPRN PRN (Reason: Temp > 100, mild pain)
ammonium lactate [AmLactin] 12 % Lotion
1 applic TOPICAL TID
thiamine HCl (vitamin B1) 100 mg Tablet
100 mg PO BID
pantoprazole 40 mg Tablet,Delayed Release (Dr/Ec)
40 mg PO BID
fluticasone propionate 50 mcg/actuation [place],Suspension
1 spray INTRANASAL DAILYPRN PRN (Reason: ALLERGIES)
insulin lispro 100 unit/mL Insulin Pen
1 sliding scale dose SC AC
Rx Instructions:
150-200=2UNITS, 201-250=4UNITS
ticagrelor 90 mg Tablet
90 mg PO BID
magnesium hydroxide [Milk of Magnesia] 400 mg/5 mL Suspension
2,400 mg PO DAILYPRN PRN (Reason: IF NO BM BY 3RD DAY)
bisacodyl [Dulcolax (bisacodyl)] 10 mg Suppository
10 mg [place] DAILYPRN PRN (Reason: IF NO BM AFTR MOM)
zinc oxide 10 % Ointment
1 applic TOPICAL DAILYPRN PRN (Reason: B/L BUTTOCK)
metoprolol succinate 100 mg Tablet Extended Release 24 Hr
100 mg PO BID Qty: 0 0RF
tamsulosin 0.4 mg Capsule
0.4 mg PO DAILY Qty: 0 0RF
sulfamethoxazole-trimethoprim [Bactrim DS] 800-160 mg Tablet
1 tab PO BID
Rx Instructions:
take until 06/15/23
divalproex 125 mg Tablet,Delayed Release (Dr/Ec)
125 mg PO BID
Eliquis 5 mg Tablet
5 mg PO BID
oxycodone 5 mg Tablet
5 mg PO BIDPRN PRN (Reason: severe pains) Qty: 7 0RF
insulin glargine 100 unit/mL (3 mL) Insulin Pen
5 unit SC HS Qty: 0 0RF
Referrals:
UNKNOWN - PT DOES,NOT KNOW [Family Provider] -
Interventions
Interventions:
*Risk Screen - Suicide Last Done: 07/14/24 21:02
*General Assessment Last Done: 07/14/24 21:02
*Neglect/Abuse Screening Last Done: 07/14/24 21:02
*ED- Fall Risk Assessment Last Done: 07/14/24 21:02
*ED COVID-19 Vaccine History Last Done: 07/14/24 21:02
Discharge Date and Time
Print Language: MICRONESIAN
[2024-07-14 21:08] VITALS: BMI 27.0
[2024-07-14 21:09] VITALS: BP 98/57
[2024-07-14 21:31] LABS: % Basophils 0.4 % (0-2); % Eosinophils 0.1 % (0-6); % Immature Granulocytes 0.5 % (0-0.5); % Lymphocytes 3.4 % (20.5-51.1); % Monocytes 1.9 % (1.7-9.3); % Neutrophils 93.7 % (42.2-75.2); Absolute Basophils 0.1 10^3/uL (0-0.2); Absolute Immature Granulocytes 0.1 10^3/uL (0-0.05); Absolute Lymphocytes 0.6 10^3/uL (1.2-3.4); Absolute Monocytes 0.3 10^3/uL (0.1-0.6); Absolute Neutrophils 15.3 10^3/uL (1.4-6.5); Hematocrit 28.7 % (39.0-52.0); Hemoglobin 9.3 g/dL (13.0-18.0); Mean Corp Hgb Conc. 32.4 g/dL (33.0-37.0); Mean Corpuscular Hgb 28.4 pg (27.0-31.0); Mean Corpuscular Volume 87.8 fL (80.0-94.0); Mean Platelet Volume 9.8 fL (7.4-10.4); Nucleated Red Blood Cells % 0 % (-); Platelet Count 227 10^3/uL (130-400); Red Blood Cell Count 3.27 10^6/uL (4.70-6.10); Red Cell Dist. Width 14.6 % (11.5-14.5); White Blood Cell Count 16.4 10^3/uL (4.8-10.8)
[2024-07-14 21:46] LABS: ALT (SGPT) 18 U/L (0-50); AST (SGOT) 22 U/L (17-59); Albumin 3.3 g/dl (3.5-5.0); Alkaline Phosphatase 128 U/L (38-126); Blood Urea Nitrogen 50 mg/dl (9-20); Carbon Dioxide 26 mmol/L (22-30); Chloride 107 mmol/L (98-107); Estimated Creatinine Clearance 68 ml/min; Glucose 191 mg/dl (70-99); Potassium 4.6 mmol/L (3.5-5.1); Sodium 141 mmol/L (135-145); Total Bilirubin 0.7 mg/dl (0.2-1.3); Total Protein 6.7 g/dl (6.3-8.2); eGFR > 60.00
[2024-07-14 22:22] VITALS: BP 83/52
[2024-07-14 22:36] LABS: Urine Albumin 2+ (Neg - Trace); Urine Bilirubin Negative (Negative); Urine Character Clear (Clear); Urine Color Yellow; Urine Glucose Negative (Negative); Urine Ketone Negative (Negative); Urine Leukocyte Negative (Negative); Urine Nitrite Negative (Negative); Urine Occult Blood 4+ (Negative); Urine Specific Gravity 1.015 (<1.030); Urine Urobilinogen Negative (Neg - 1+)
[2024-07-14 23:00] VITALS: BP 82/50
[2024-07-14 23:00] LABS: Urine Red Blood Cell 80-90 /HPF (0-2); Urine Uric Acid Crystals Present; Urine White Cell 0-2 /HPF (0-5)
[2024-07-14 23:01] LABS: Urine Bacteria Moderate (Negative)
[2024-07-14 23:07] VITALS: BP 93/58
--- NOTE | 2024-07-14 23:33 | HPS.HSE ---
Family Physician
-
Family Physician: NOT KNOW UNKNOWN - PT DOES
Chief Complaint
-
altered mental status
History of Present Illness
Patient is a 69-year-old male with past medical history significant for hypertension, ASCVD, left hemiparesis s/p CVA, GERD, paroxysmal A-Fib / Flutter, CKD III, CHF - unknown Type, DM-II and psychiatric disorder - Unspecified who presented to [facility]
ED for evaluation of altered mental status. Patient is poor historian, at bedside who assisted with HPI. Patient has resided at [facility] since October 2023, they notified her today that he had a acute onset of change in mental status that
was witnessed at dinner time when patient was not verbally responding to staff and was having a difficult time holding water cup.
Medical History
Past Medical History
Past Medical History: Reports Other
Additional Past Medical History:
Hypertension
ASCVD
Left Hemiparesis s/p CVA
GERD
Paroxysmal A-Fib / Flutter
CKD III
CHF - Unknown Type
DM-II
Psychiatric Disorder - Unspecified
Past Surgical History: Reports Other
Additional Past Surgical History:
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
A-Fib / Flutter Ablation
Appendectomy
ORIF LUE
Right Knee Arthroscopy
Social History
Tobacco: Non-smoker
Alcohol: None
Drug: None
Personal:
Living: Residential
Employment: Disabled
Family History
Family History: Not pertinent
Allergies / Home Medications
Allergies reflects when Allergies were last updated in [employer].
Home Medications with original date entered in [employer]
Allergy/Medication List:
Allergies
Allergy/AdvReac Type Severity Reaction Status Date / Time
Penicillins Allergy Swelling Verified 07/14/24 21:01
sulfamethoxazole Allergy Unknown Verified 07/14/24 21:01
[From Bactrim]
trimethoprim [From Bactrim] Allergy Unknown Verified 07/14/24 21:01
Home Medications
acetaminophen 325 mg tablet (Tylenol) 650 mg PO Q4HPRN PRN Temp > 100, mild pain 04/29/24
ammonium lactate 12 % lotion (AmLactin) 1 applic topical TID B/L LOWER EXTREMITES 04/29/24
atorvastatin 40 mg tablet 40 mg PO HS High Cholesterol 04/29/24
fluticasone propionate 50 mcg/actuation nasal spray,suspension 1 spray intranasal DAILYPRN PRN ALLERGIES 04/29/24
insulin lispro 100 unit/mL subcutaneous pen 1 sliding scale dose SC AC Diabetes 04/29/24
losartan 50 mg tablet 50 mg PO DAILY Blood Pressure 04/29/24
pantoprazole 40 mg tablet,delayed release 40 mg PO BID GERD 04/29/24
thiamine HCl (vitamin B1) 100 mg tablet 100 mg PO BID Supplement 04/29/24
ticagrelor 90 mg tablet 90 mg PO BID Blood Clot Prevention/Tx 04/29/24
bisacodyl 10 mg rectal suppository (Dulcolax (bisacodyl)) 10 mg [place] DAILYPRN PRN IF NO BM AFTR MOM 04/30/24
magnesium hydroxide 400 mg/5 mL oral suspension (Milk of Magnesia) 2,400 mg PO DAILYPRN PRN IF NO BM BY 3RD DAY 04/30/24
zinc oxide 10 % topical ointment 1 applic topical DAILYPRN PRN B/L BUTTOCK 04/30/24
metoprolol succinate 100 mg tablet,extended release 24 hr 100 mg PO BID #0 tabs 05/06/24
tamsulosin 0.4 mg capsule 0.4 mg PO DAILY #0 caps 05/06/24
apixaban 5 mg tablet (Eliquis) 5 mg PO BID 06/05/24
divalproex 125 mg tablet,delayed release 125 mg PO BID 06/05/24
insulin glargine 100 unit/mL (3 mL) subcutaneous pen 5 unit (0.05 mL) SC HS Diabetes #0 mL 06/08/24
oxycodone 5 mg tablet 5 mg PO BIDPRN PRN severe pains #7 tabs 06/08/24
aripiprazole 10 mg tablet (Abilify) 10 mg PO HS 07/15/24
ferrous sulfate 325 mg (65 mg iron) tablet 325 mg PO DAILY 07/15/24
Review of Systems
-
Unable to obtain full review of systems at this time due to: Dementia
History Source: Family [facility] Residential
Neurological: Reports Other (not responding verbally to facility staff, unable to drink water from cup like normal )
Physical Exam
Vital Signs
Vital Signs
Temp Pulse Resp BP Pulse Ox
98.1 F 94 17 93/58 95
07/14/24 21:02 07/14/24 23:07 07/14/24 23:07 07/14/24 23:07 07/14/24 23:07
Physical Exam
General: Well Developed, Well Nourished and No Apparent Distress
HEENT: NormoCephalic, Moist mucous membranes, Atraumatic, Nose Appears Normal and Ears Appear Normal
Respiratory: Clear, Non Labored Respirations and Decreased Breath Sounds
Cardiac: S1/S2 and Regular Rhythm; No Murmur or Rub
GI: Soft, Non Tender, Non Distended and Normal Bowel Sounds; No Organomegaly
Rectal: Deferred by Provider
Genito-urinary: Deferred by me
Musculoskeletal: No Clubbing, No Cyanosis, No Edema and Other (Right BKA)
Skin: No Rash
Neuro: Awake and Other (refusing assessment workup )
Psych: Apparent Dementia
Laboratory Results
-
07/14/24 21:11
07/14/24 21:11
Laboratory Results
Total Bilirubin 0.7 mg/dl (0.2-1.3) 07/14/24 21:11
AST 22 U/L (17-59) 07/14/24 21:11
ALT 18 U/L (0-50) 07/14/24 21:11
Alkaline Phosphatase 128 U/L (38-126) H 07/14/24 21:11
Data Reviewed
-
Diagnostic Radiology: Report Reviewed by me (CXR: Extremely low lung volumes. Mild predominantly linear right basilar opacity suggesting subsegmental atelectasis and/or scarring.)
CT Scan: Report Reviewed by me (Head: No acute intracranial hemorrhage. Findings again seen compatible with diffuse cortical atrophy with nonspecific white matter changes as described above. Findings most likely representing encephalomalacia/old
infarction in the left posterior parietal-occipital region greater than the right oc)
Lab Data: Labs Reviewed by me (WBC 16.4, Neut 93.7, BUN 50, Creat 1.3, Alk Phos 128)
Impression/Plan
-
IMPRESSION/PLAN:
#altered mental status 2/2 TIA/CVA vs. infectious process
#Left Hemiparesis s/p CVA
WBC 16.4, Neut 93.7
UA: not suggestive of UTI
Urine Cx: pending
Covid: pending
Influenza: pending
CXR: Extremely low lung volumes.
Mild predominantly linear right basilar opacity suggesting subsegmental atelectasis and/or scarring.
Head CT: No acute intracranial hemorrhage.
Findings again seen compatible with diffuse cortical atrophy with nonspecific white matter changes as described above.
Findings most likely representing encephalomalacia/old infarction in the left posterior parietal-occipital region greater than the right occipital lobe. Cannot entirely exclude superimposed
small acute/subacute nonhemorrhagic infarct in the left posterior parietal-occipital region.
- Admit to telemetry
- Continue infectious workup
- Consult Neurology
- MRI for morning
- speech evaluation
#Hypertension
- continue losartan
#ASCVD
- continue atorvastatin
#GERD
- continue pantoprazole
#Paroxysmal A-Fib / Flutter
- continue Eliquis, metoprolol and ticagrelor
#CKD III
BUN 50, Creat 1.3
- monitor BMP
- bladder scan protocol
#DM-II
- AccuCheck AC & HS
- SSI
- continue basal insulin
#Psychiatric Disorder - Unspecified
- continue Abilify and divalproex
#CHF - Unknown Type
Code status: Full code
DVT prophylaxis: Eliquis
[2024-07-15] VITALS (47 sets, daily range): BP systolic 72–111; BP diastolic 34–70; BMI 27.0; BMI 26.8; BMI 24.4
--- NOTE | 2024-07-15 00:55 | W.PN.UPDATE ---
Update Note
Progress Note Update
Patient seen in conjunction with therapy. I agree the findings on history and physical. I concur with assessment and plan unless stated otherwise.
Briefly, this a 69-year-old male he has a past medical history significant for atrial fibrillation on anticoagulation with Eliquis, CAD status PCI in 2023 on Brilinta, insulin-dependent diabetes, recent significant decline in mental status for which
she is currently at nursing/rehab facility and spouse reports forgetfulness but generally alert and oriented and able to carry on a conversation who presents to the emergency department with fatigue and altered mental status.
Patient was admitted to the hospital at the beginning of last month with anemia and weakness and was thought to have chronic hematuria with resultant mixed iron deficiency picture. He did receive 2 units of blood and his hemoglobin appears to have
been stable since. Is supposed to have restarted the Eliquis after his cystoscopy on 10 June. Patient unable to tell me whether he did get the cystoscopy or not. Outpatient records indicate that he has been restarted back on the Eliquis and
Brilinta. He is unable to tell me exactly why was sent to the emergency department but he did endorse fatigue and more tired than usual. He also appears more confused compared to baseline according to spouse. There is concern for chronic
left-sided weakness which appears to be essentially at baseline.
His exam shows no focal deficits to me.
He is afebrile here with a temp of 98.1, blood pressure ranged from 80s to 90s systolic, pulse was 95 and he was satting 98% on room air. CBC shows white count of 16, hemoglobin was 9.3. Electrolytes were normal. BUN was elevated at 50 creatinine
1.3.
ECG shows atrial flutter with a rate of 82. CT of the head was concerning with findings most likely representing encephalomalacia/old infarction in the left posterior parietal-occipital region greater than the right occipital lobe. Cannot entirely
exclude superimposed small acute/subacute nonhemorrhagic infarct in the left posterior parietal-occipital region.
Chest x-ray shows extremely low lung volumes, mild predominantly linear right basilar opacity suggesting subsegmental atelectasis.
Assessment and plan
69-year-old with history of prior CAD status post PCI within the last year on Brilinta, atrial flutter/fibrillation currently on anticoagulation, who comes into the emergency department with weakness and altered mental status. Patient is a poor
historian. According to spouse he is more confused. He does have chronic left-sided weakness which appears to be unchanged. He has whispering voice which also has been present for approximately 6-8 months. Initial workup in the ED shows that his
blood pressure was borderline low ranging from 80 systolic to 90/55, chest x-ray was unremarkable with low lung volumes and likely atelectasis. CT of the head was concerning for possible small acute to subacute nonhemorrhagic infarct in the left
posterior parietal�occipital region. He has leukocytosis of unknown source. He has hematuria on UA with moderate bacteria but negative leukocyte esterase and negative nitrites and negative WBCs. BUN is elevated. Concern is mostly for possible
subacute stroke in the setting of holding of the anticoagulation but it sounds like the anticoagulation has been restarted since discharge from hospital. Other possibilities include dehydration given the markedly elevated BUN. At this time we have
no evidence of an acute urinary tract infection. No other obvious source of infection. Was not able to view sacrum for wound eval.
- admit for acute/subacute stroke eval
- npo for now, swallow eval
- continue brillanta and apixaban for now
- mri in am
- neurochecks per stroke protocol
- continue infectious w/u with covid/flu testing. Check procalcitonin and lactic acid levels.
- holding abx unless febrile
- BP is borderline low and BUN elevated. Suspected dehydration. Holding losartan for now. 500 ml NS bolus in ED, continue gentle LR overnight (history mild diastolic disease)
- for afib, continue metoprolol with hold parameters. AC with apixaban, monitor hematuria and clots with routine bladder scan. Obtain records about recent cystoscopy if done.
- bedside glucose with sliding scale insulin q 6 hours pending diet
-DVT PPX - on apixaban
- Code status - patient stated clearly he wants to be full code at this time despite prior DNR on polst
[2024-07-15] MEDS: NSS 500 IV (01:16)
[2024-07-15] MEDS: FLUSH (NSS) 1 FLUSH IV (01:17)
[2024-07-15 01:45] LABS: COVID-19 Antigen Negative (Negative)
[2024-07-15] MEDS: NSS 1000 IV (02:28)
[2024-07-15 02:46] LABS: Lactic Acid 1.1 mmol/L (0.7-2.0)
[2024-07-15 03:47] LABS: Procalcitonin 1.07 ng/ml (0.0-0.25)
[2024-07-15] MEDS: LR 1000 IV (04:10)
[2024-07-15 06:36] LABS: APTT 38.6 Sec (23.4-35.0); INR 1.55; PT 19.1 Sec (11.4-14.6)
[2024-07-15 06:42] LABS: HDL Cholesterol 38 mg/dl; LDL Cholesterol, Calculated 20 mg/dl; Total Cholesterol 68 mg/dl (50-199); Triglyceride 52 mg/dl (10-149); Very Low Density Lipoprotein 10 mg/dl (0-30)
[2024-07-15 06:50] LABS: Troponin I 0.036 ng/ml
[2024-07-15 06:56] LABS: Procalcitonin 1.23 ng/ml (0.0-0.25)
[2024-07-15 07:24] LABS: Erythrocyte Sed Rate 77 mm/hour (0-20)
--- NOTE | 2024-07-15 07:36 | W.PN.HOSP.TC ---
Today's Communication/Plan
-
Antibiotics started given rising procal which was ordered by night team
Worsening hypotension despite IV fluids -- ordered additional IV fluids boluses, Levophed, echo, transfer to ICU
Stroke eval
Assessment / Plan
Assessment / Plan
Physical Exam
General: Well Developed, Well Nourished and No Apparent Distress
HEENT: Normocephalic, Moist mucous membranes
Respiratory: Clear to Auscultation Bilaterally
Cardiac: S1/S2 and Regular Rhythm
GI: Soft, Non Tender, Non Distended and Normal Bowel Sounds
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
Skin: Warm. Dry.
Neuro: Awake
Psych: Apparent Dementia
Assessment/Plan
69-year-old male with a past medical history significant for atrial fibrillation on anticoagulation with Eliquis, CAD status PCI in 2023 on Brilinta, CHF-unknown type, insulin-dependent diabetes, hypertension, left hemiparesis s/p CVA, GERD, chronic
kidney disease stage 3, psychiatric disorder, recent significant decline in mental status for which she is currently at nursing/rehab facility and spouse reports forgetfulness but generally alert and oriented and able to carry on a conversation who
presented to the emergency department with fatigue and altered mental status. Patient has resided at [facility] since October 2023, they notified her today that he had a acute onset of change in mental status that was witnessed at dinner time when
patient was not verbally responding to staff/more confused and was having a difficult time holding water cup/weakness.
Patient was admitted to the hospital at the beginning of last month with anemia and weakness and was thought to have chronic hematuria with resultant mixed iron deficiency picture. He did receive 2 units of blood and his hemoglobin appeared to have
been stable since. Is supposed to have restarted the Eliquis after his cystoscopy on 10 June 2024. Patient unable to say whether he did get the cystoscopy or not. Outpatient records indicate that he had been restarted back on the Eliquis and
Brilinta. He is unable to say exactly why he was sent to the emergency department but he did endorse fatigue and more tired than usual. He also appeared more confused compared to baseline according to spouse. There is concern for chronic
left-sided weakness which appeared to be essentially at baseline. Patient was noted to have whispering voice which also had been present for approximately 6-8 months.
Neurological exam at the time of admission showed no focal deficits.
On admission, he was afebrile here with a temp of 98.1, blood pressure ranged from 80s to 90s systolic, pulse was 95 and he was satting 98% on room air. CBC showed white blood cell count of 16, hemoglobin was 9.3. Electrolytes were normal. BUN
was elevated at 50 creatinine 1.3.
ECG showed atrial flutter with a rate of 82. CT of the head was concerning with findings most likely representing encephalomalacia/old infarction in the left posterior parietal-occipital region greater than the right occipital lobe. Cannot entirely
exclude superimposed small acute/subacute nonhemorrhagic infarct in the left posterior parietal-occipital region.
Chest x-ray showed extremely low lung volumes, mild predominantly linear right basilar opacity suggesting subsegmental atelectasis.
#Hypotension -- concern for septic shock
#Allergy to Penicillins
#Leukocytosis of Unknown Source with high neutrophil percentage
-On admission, BP slightly softer than baseline and overall weak appearing -- but blood pressure continued to worsen with MAP in the 50s this morning
-Transfer patient to ICU
-Echo
-Despite IV fluids boluses (given in setting of history of CHF) patient's hypotension worsened
-Levophed ordered
-Procal repeated overnight and is quite high -- start on broad spectrum antibiotics with Vancomycin and Cefepime
-COVID and Influenza were negative
#Toxic Metabolic Encephalopathy Secondary to TIA/acute-subacute stroke vs. infectious process
#Left Hemiparesis s/p prior CVA
-CXR with extremely low lung volumes, mild predominantly linear right basilar opacity suggesting subsegmental atelectasis and/or scarring -- monitor oxygen saturation
-Head CT: No acute intracranial hemorrhage, encephalomalacia/old infarction in the left posterior parietal-occipital region greater than the right occipital lobe; cannot entirely exclude superimposed small acute/subacute nonhemorrhagic infarct in
the left
posterior parietal-occipital region.
-Concern is for possible subacute stroke in the setting of holding of the anticoagulation but it sounds like the anticoagulation has been restarted (was previously held for GI bleed and hematuria) since discharge from hospital.
-Dehydration with high BUN?
-Possible UTI?
-Procalcitonin elevated and on repeat overnight, was even higher -- antibiotics started as above -- so far possible sources including urinary tract and possible wound
-Neurology consulted overnight
-MRI Brain when able
-NPO. speech evaluation
-Neurochecks
#Hematuria on UA with moderate bacteria
#Recent history of hematuria
-Monitor hematuria and clots with routine bladder scan.
#History of Gastrointestinal Bleeding
-Patient was off Eliquis and Brilinta, but seems like based on history/records, he was placed back on them
#Hypertension
-Hold Losartan given hypotension
#CAD status PCI in 2023 on Brilinta
- Continue atorvastatin
- Continue Brilinta and Eliquis
#CHF - Unknown Type -- history of HFpEF?
-Cautious IV fluids
-Daily weights, I's and O's
#GERD
- continue pantoprazole
#Paroxysmal A-Fib / Flutter on outpatient Eliquis
- continue Eliquis, metoprolol and ticagrelor
#CKD III
#Azotemia -- suspected prerenal
- monitor BMP
- bladder scan protocol
- IV fluids were given
#DM-II
- AccuCheck AC & HS (or Q6H if not eating)
- SSI
- continue basal insulin
- Bedside glucose with sliding scale insulin q 6 hours pending diet
#Psychiatric Disorder - Unspecified
- continue Abilify and divalproex
Code status: Full code (On admission, patient stated clearly he wants to be full code despite prior DNR on POLST form)
DVT prophylaxis: Eliquis
Concern for shock in setting of heart failure history with concern for sepsis needing monitoring in the ICU is a high-risk encounter.
Anticipated Discharge: > 48 hours
Subjective/Interval History
-
Date of Service: July 15, 2024
Patient was seen and examined. No new symptoms, although his MAP this morning dropped into the 50s despite IV fluids boluses overnight, additional bolus and Levophed ordered this morning.
Objective Data
-
Labs:
Laboratory Results
07/14/24 07/15/24
21:11 06:14
WBC 16.4 H
Hgb 9.3 L
Hct 28.7 L
Plt Count 227
PT 19.1 H
INR 1.55
APTT 38.6 H
Sodium 141
Potassium 4.6
Chloride 107
Carbon Dioxide 26
BUN 50 H
Creatinine 1.3
Glucose 191 H
Calcium 9.0
Total Bilirubin 0.7
AST 22
ALT 18
Alkaline Phosphatase 128 H
Vital Signs:
Vital Signs
Temp Pulse Resp BP Pulse Ox
98.1 F 91 11 98/61 99
07/14/24 21:02 07/15/24 06:00 07/15/24 06:00 07/15/24 06:00 07/15/24 05:49
[2024-07-15 08:08] LABS: Glucose - Point of Care 174 mg/dl (70-99)
[2024-07-15] MEDS: LR 500 IV (08:12)
[2024-07-15] MEDS: LAC HYDRIN, AM LACTIN LOTION 1 APPLIC TOPICAL ×3 (08:22→22:41)
--- NOTE | 2024-07-15 09:40 | CON.INTV ---
Addendum entered and electronically signed by Roberta Vallecillo DO 07/15/24 16:25:
Has not needed pressors since transfer to ICU
Reviewed cards and neuro evals which are recommended no immediate/acute interventions
DHT placed for feeds as he has failed his VSE
Would discuss GOC as palliative consult would be warranted here
Otherwise, can transfer to tele, we will sign off upon transfer
Original Note:
Consultation
Consultation Request
Date/Time Consultation Requested: 07/15/24
Date/Time Consultation Performed: 07/15/24
Performing Provider: Ruth Ann
Reason for Consultation: ICU
Medical History
-
History of Present Illness:
Patient is a 69-year-old male with previous history of hypertension, CVA, GERD, A-fib, diabetes, chronic kidney disease presenting for change in mental status from [facility]. He was noted to have old and new CVA on CT imaging. Echocardiogram
obtained demonstrating new RV dysfunction. Due to low blood pressure, he was admitted to ICU for possible pressor requirements.
Past Medical History
Past Medical History: Other (see list below)
Social History
Tobacco: Non-smoker
Alcohol: None
Drug: None
Family History
Family History: Reviewed & Not Pertinent
Allergies / Home Medications
Allergies
Allergy/AdvReac Type Severity Reaction Status Date / Time
Penicillins Allergy Swelling Verified 07/14/24 21:01
sulfamethoxazole Allergy Unknown Verified 07/14/24 21:01
[From Bactrim]
trimethoprim [From Bactrim] Allergy Unknown Verified 07/14/24 21:01
Home Medications
�Medication �Instructions �Recorded �Confirmed �Last Taken �Type
acetaminophen 325 mg tablet 650 mg PO Q4HPRN PRN Temp > 100, 04/29/24 07/15/24 Unknown History
(Tylenol) mild pain
ammonium lactate 12 % lotion 1 applic topical TID B/L LOWER 04/29/24 07/15/24 Unknown History
(AmLactin) EXTREMITES
atorvastatin 40 mg tablet 40 mg PO HS High Cholesterol 04/29/24 07/15/24 Unknown History
fluticasone propionate 50 1 spray intranasal DAILYPRN PRN 04/29/24 07/15/24 Unknown History
mcg/actuation nasal ALLERGIES
spray,suspension
insulin lispro 100 unit/mL 2 - 10 sliding scale dose SC AC 04/29/24 07/15/24 Unknown History
subcutaneous pen Diabetes
losartan 50 mg tablet 50 mg PO DAILY Blood Pressure 04/29/24 07/15/24 Unknown History
pantoprazole 40 mg tablet,delayed 40 mg PO BID GERD 04/29/24 07/15/24 Unknown History
release
thiamine HCl (vitamin B1) 100 mg 200 mg PO DAILY Supplement 04/29/24 07/15/24 Unknown History
tablet
ticagrelor 90 mg tablet 90 mg PO BID Blood Clot 04/29/24 07/15/24 Unknown History
Prevention/Tx
bisacodyl 10 mg rectal suppository 10 mg WI DAILYPRN PRN IF NO BM 04/30/24 07/15/24 Unknown History
(Dulcolax (bisacodyl)) AFTR MOM
magnesium hydroxide 400 mg/5 mL 2,400 mg PO DAILYPRN PRN IF NO BM 04/30/24 07/15/24 Unknown History
oral suspension (Milk of Magnesia) BY 3RD DAY
metoprolol succinate 100 mg 100 mg PO BID #0 tabs 05/06/24 07/15/24 Unknown Rx
tablet,extended release 24 hr
tamsulosin 0.4 mg capsule 0.4 mg PO DAILY #0 caps 05/06/24 07/15/24 Unknown Rx
apixaban 5 mg tablet (Eliquis) 5 mg PO BID 06/05/24 07/15/24 Unknown History
divalproex 125 mg tablet,delayed 125 mg PO BID 06/05/24 07/15/24 Unknown History
release
insulin glargine 100 unit/mL (3 5 unit (0.05 mL) SC HS Diabetes #0 06/08/24 07/15/24 Unknown Rx
mL) subcutaneous pen mL
oxycodone 5 mg tablet 5 mg PO BIDPRN PRN severe pains #7 06/08/24 07/15/24 Unknown Rx
tabs
aripiprazole 10 mg tablet (Abilify) 10 mg PO HS 07/15/24 07/15/24 Unknown History
ferrous sulfate 325 mg (65 mg 325 mg PO DAILY 07/15/24 07/15/24 Unknown History
iron) tablet
loperamide 2 mg tablet (Imodium 2 mg PO Q6HPRN PRN diarrhea 07/15/24 07/15/24 Unknown History
A-D)
sodium phosphates 19 gram-7 118 ml WI DAILYPRN PRN if dulcolax 07/15/24 07/15/24 Unknown History
gram/118 mL enema (Fleet Enema) is ineffective after 24hrs
Review of Systems
-
History Source: Patient
All other systems: Negative unless noted
Vitals / Labs / Diagnostic Testing
Vital Signs
Temp Pulse Resp BP Pulse Ox
98.1 F 68 18 79/48 98
07/14/24 21:02 07/15/24 08:00 07/15/24 08:00 07/15/24 08:00 07/15/24 08:00
Lab Data
07/14/24 21:11
Laboratory Results
07/15/24
06:14
PT 19.1 H
INR 1.55
APTT 38.6 H
Microbiology
07/15/24 01:09 Nasal Swab Influenza Types A & B (SUKHI) - Final
Negative for Influenza A & B, NAAT
Negative results must be combined with clinical observations
and patient history.
Nucleic Acid Amplification test (NAAT)performed on the
[employer] platform.
Diagnostic Testing:
Physical Exam
-
HEENT: Normocephalic, Anicteric and Moist Mucous Membranes
Cardiovascular: S1/S2, Regular Rhythm and Other (R BKA)
Respiratory: Clear and Non-Labored Respirations
GI: Soft, Non Distended and Non Tender
Neurology: Awake and Other (lethargic but conversive, overall weak/deconditioned appearing, no focal findings)
Skin: Warm and Dry
General: Comfortable and Other (NAD, chronically ill appearing)
Assessment
-
Patient is a 69-year-old male with previous history of hypertension, CVA, GERD, A-fib, diabetes, chronic kidney disease presenting for change in mental status from [facility]. He was noted to have old and new CVA on CT imaging. Echocardiogram
obtained demonstrating new RV dysfunction. Due to low blood pressure, he was admitted to ICU for possible pressor requirements.
Acute RV dysfunction
Hypotension not on pressors
Acute on chronic CVA
TME
Leukocytosis
Hyperglycemia
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
Hypertension
ASCVD
Left Hemiparesis s/p CVA
GERD
Paroxysmal A-Fib / Flutter s/p ablation
CKD III
CHF
DM-II
Psychiatric Disorder - Unspecified
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
Appendectomy
ORIF LUE
Right Knee Arthroscopy
Plan
Current signs of metabolic encephalopathy or MS changes--he is answering/following commands
Unknown baseline, there prior psychiatric history noted --unknown which
Denies pain at this time.
CT showing new and old CVA-neuro following
Pain/sedation: PRN, hold for oversedation
RASS goals: 0
Hemodynamically stable, not requiring pressors.
Cardiac history reviewed--Afib, CHF
ECHO reviewed indicating new RV dysfunction, CTA neg for PE, trop elevated
Unclear etiology--consult cards
Hold home meds and resume as able
Monitor on telemetry
Oxygen needs: not significantly hypoxemic
High risk for aspiration given RLE findings-speech eval
Prior history of lung disease: none
Supplemental O2 as indicated to maintain sats > 89%
CXR/CT reviewed indicating small effusion overlying large R HH, chronic
Can trial diuresis if indicated
NPO, resume diet when able--speech eval
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
Aspiration precautions, HOB > 30 degrees
DHT if needed
GI prophylaxis if indicated for mechanical ventilation >48 hours, prior history of GERD, stress ulcer formation in the critically ill
CKD history
Creat at baseline, 1.3
Void trials
Follow urine output, critical I/Os
Replete electrolytes as needed
Possible sepsis etiology, w/u ongoing, afebrile -- PCT mildly elevated
Started on empiric antibiotics
Cultures sent/pending
Can likely de-escalate if culture data not revealing
Follow fever trend, WBC count
CBC stable, no signs of bleeding or coagulopathy--mild anemia present/chronic
DVT prophylaxis as assessed based on risk, including mechanical SCDs
Can transfuse if indicated for Hb <7, plt < 10
INR WNL
No prior h/o thyroid disease
H/o diabetes, can continue on home meds, SS for coverage
HbA1c 6.3
We will follow
Diagnostic Data
Chest X-Ray: 07/14/24- Extremely low lung volumes. Mild predominantly linear right basilar opacity suggesting subsegmental atelectasis and/or scarring.
CT Scan: CTA 07/15/24- No CT evidence for pulmonary embolism. Extensive pneumonia in the right lung. This involves right lower lobe and, to a lesser degree, right upper lobe. Appearance slightly improved compared with the prior CT. No change in small
right pleural effusion. Pneumonia in the left lung has improved since the prior CT. Severe coronary arterial calcifications. Mild subcarinal and left hilar adenopathy. This is probably reactive secondary to pneumonia. Follow-up chest CT in 4-6
months recommended for reevaluation.
CHEST 05/02/24- Mild to moderate elevation right hemidiaphragm, similar to recent CT of the abdomen and pelvis. Interval increase in airspace opacities within the right lower lobe, suggestive of pneumonia. There are also nodular and more confluent
areas of airspace opacity throughout both lungs, highly suggestive of pneumonia. These have also developed since examination of April 27, 2024, when comparing to the visualized included lungs on prior CT of the abdomen and pelvis.
HCT 07/14/24- No acute intracranial hemorrhage. Findings again seen compatible with diffuse cortical atrophy with nonspecific white matter changes as described above.
Findings most likely representing encephalomalacia/old infarction in the left posterior parietal-occipital region greater than the right occipital lobe. Cannot entirely exclude superimposed small acute/subacute nonhemorrhagic infarct in the left
posterior parietal-occipital region.
MRI 05/03/24- No acute intracranial abnormality noted. Moderate atrophy with sequelae of moderate/severe small vessel ischemic disease and encephalomalacia within the bilateral occipital lobes.
Echo: 07/15/24- Normal biventricular size and systolic function without regional wall motion abnormality. Right ventricle is dilated with reduced systolic function. No significant valvular disease. No prior study available for comparison. Mild
tricuspid regurgitation. Estimated pulmonary artery pressure of 34 mmHg assuming a right atrial pressure of 3 mmHg.
PFT's:
Reports and relevant images were personally reviewed.
Critical Care time 55 mins -- The patient is admitted for acute critical illness for the treatment of vital organ failure and/or prevention of further life-threatening conditions. Total care includes time spent in review of history, physical exam,
medications, hemodynamic/ventilator parameters, laboratory data, imaging and discussion with house staff, pharmacy, respiratory therapy, boxing inspector, and nursing.
--- NOTE | 2024-07-15 10:17 | W.PN.UPDATE ---
Update Note
Progress Note Update
I ordered a CT Chest PE study to evaluate for PE, given the finding of dilated and hypokinetic right ventricle on echocardiogram.
[2024-07-15 10:18] LABS: Glycohemoglobin (HgbA1c) 6.3 % (4.0-5.6)
--- NOTE | 2024-07-15 10:30 | PTCARENOTE ---
Received pt into Rm [id number] via stretcher from ED at 0930. Pt awake and answering questions appropriately- speaks in whisper. Oriented x3. Denies c/o pain. No SOB w/ POx 97%. No distress noted. Hygiene/comfort care provided. Physical assessment
completed. Condom catheter applied. Orientation provided to pt on surroundings/plan of care. Pt remains NPO until evaluated by Speech Therapy. Safe environment maintained. Call crhis w/in pt reach
[2024-07-15] MEDS: MAXIPIME 2000 MG IV ×2 (10:41→20:49)
[2024-07-15] MEDS: STERILE WATER FOR INJECTION 10 ML IV ×2 (10:41→20:49)
[2024-07-15] MEDS: VANCOCIN 540 MG IV (10:47)
--- NOTE | 2024-07-15 10:50 | PTCARENOTE ---
Pt to CT scan w/ this RN in attendance for ordered CTA of chest.
--- NOTE | 2024-07-15 11:20 | PTCARENOTE ---
Dr Lucero/neruologist in room to assess pt. Per Dr Lucero- no need to complete additional NIHSS assessments
--- NOTE | 2024-07-15 11:36 | CON.NEURO ---
Neuro Assessment/Plan
Assessment
Head CT imgs and report reviewed, chronic stroke left occipital, right posterior parietal, and report noted, 'Cannot entirely exclude superimposed small acute/subacute nonhemorrhagic infarct in the left posterior parietal-occipital region.'
Brain mri 05/03/24 imgs and report reviewed, chronic strokes left occipital, right posterior parietal, left caudate, right thalamus
69-year-old male with a past medical history significant for atrial fibrillation on anticoagulation with Eliquis, CAD status PCI in 2023 on Brilinta, CHF-unknown type, insulin-dependent diabetes, hypertension, left hemiparesis s/p CVA, GERD, chronic
kidney disease stage 3, psychiatric disorder, recent significant decline in mental status for which she is currently at nursing/rehab facility and spouse reports forgetfulness but generally alert and oriented and able to carry on a conversation who
presented to the emergency department with fatigue and altered mental status. Patient has resided at [facility] since October 2023, they notified her today that he had a acute onset of change in mental status that was witnessed at dinner time when
patient was not verbally responding to staff/more confused and was having a difficult time holding water cup/weakness.
recently off Brilinta and Eliquis due to hematuria which is now restarted.
He has had 4 strokes on imaging, and I don't believe that any further workup is indicated, as in any case it should be on Brilinta and Eliquis, and it appears that he has more pressing medical issues
Consultation
Order
Date of Consultation: 07/15/24
Requesting Provider: Malik Shelton,
Reason for Consult: stroke
Subjective/Objective
Subjective Data
Date of Service: July 15, 2024
69-year-old male he has a past medical history significant for atrial fibrillation on anticoagulation with Eliquis, CAD status PCI in 2023 on Brilinta, insulin-dependent diabetes, recent significant decline in mental status for which he is
currently at nursing/rehab facility and spouse reports forgetfulness but generally alert and oriented and able to carry on a conversation who presents to the emergency department with fatigue and altered mental status.
He this morning he compalins of Soft voice 6-8 months
Objective Data
Vital Signs
Temp Pulse Resp BP Pulse Ox
36.9 C 67 18 100/58 98
07/15/24 09:54 07/15/24 09:15 07/15/24 09:15 07/15/24 09:15 07/15/24 09:15
Lab Results
07/14/24 21:11
PT 19.1 Sec (11.4-14.6) H 07/15/24 06:14
INR 1.55 07/15/24 06:14
APTT 38.6 Sec (23.4-35.0) H 07/15/24 06:14
Sodium 141 mmol/L (135-145) 07/14/24 21:11
Potassium 4.6 mmol/L (3.5-5.1) 07/14/24 21:11
BUN 50 mg/dl (9-20) H 07/14/24 21:11
Glucose 191 mg/dl (70-99) H 07/14/24 21:11
Calcium 9.0 mg/dl (8.4-10.2) 07/14/24 21:11
LDL Cholesterol, Calc 20 mg/dl 07/15/24 06:14
Patient Allergies
Penicillins Allergy (Verified 07/14/24 21:01)
Swelling
sulfamethoxazole [From Bactrim] Allergy (Verified 07/14/24 21:01)
Unknown
trimethoprim [From Bactrim] Allergy (Verified 07/14/24 21:01)
Unknown
Physical Exam
-
Awake and alert
speech soft
left sided visual field deficit
bilateral UE 4/5, bilateral LE some anti gravity
right BKA
Medications
-
Active Medications
Generic Name Dose Route Start Last Admin
Trade Name Freq PRN Reason Stop Dose Admin
Acetaminophen 650 mg 07/15/24 01:20
Acetaminophen 325 Mg Tablet PO 08/12/24 01:19
Q4HPRN PRN
BCEK, mild pain, or temp >100.4F
Ammonium Lactate 0 applic 07/15/24 08:00 07/15/24 08:22
Ammonium Lactate 12% (Lotion) 240 Ml Bottle TOPICAL 08/12/24 07:59 1 applic
TID ALISIA Administration
Apixaban 5 mg 07/15/24 08:00 07/15/24 08:07
Apixaban (Eliquis) 5 Mg Tablet PO 08/12/24 07:59 Not Given
BID ALISIA
Aripiprazole 10 mg 07/15/24 22:00
Aripiprazole 10 Mg Tablet PO 08/12/24 21:59
HS ALISIA
Atorvastatin Calcium 40 mg 07/15/24 22:00
Atorvastatin (Lipitor) 40 Mg Tablet PO 08/12/24 21:59
HS ALISIA
Cefepime HCl 2,000 mg 07/15/24 20:00
Cefepime Hcl 2,000 Mg/12.5 Ml Vial IV
Q8H ALISIA
Dextrose 12.5 grams 07/15/24 01:20
Dextrose 50% (0.5 Grams/Ml) 50 Ml Syringe IV 08/12/24 01:19
[id number] PRN
hypoglycemia
Protocol
Divalproex Sodium 125 mg 07/15/24 08:00 07/15/24 08:07
Divalproex 125 Mg Delayed Release (12 Hr) Tablet PO 08/12/24 07:59 Not Given
BID ALISIA
Ferrous Sulfate 325 mg 07/15/24 08:00 07/15/24 08:07
Ferrous Sulfate 325 Mg Tablet PO 08/12/24 07:59 Not Given
DAILY ALISIA
Glucagon 1 mg 07/15/24 01:20
Glucagon 1 Mg Vial IM 08/12/24 01:19
PRN PRN
hypoglycemia
Protocol
Lactated Ringer's 1,000 mls @ 80 mls/hr 07/15/24 02:00 07/15/24 04:10
Lr IV 07/15/24 14:29 1,000 mls
[id number] ALISIA Administration
Insulin Glargine 5 units/ 0.05 mls @ 0 mls/hr 07/15/24 22:00
Device SC 08/12/24 21:59
HS ALISIA
As Directed
Vancomycin HCl 1 each/ Device 0 mls @ 0 mls/hr 07/15/24 08:20
IV
PER PROTOCOL ALISIA
As Directed
Metronidazole 100 mls @ 100 mls/hr 07/15/24 10:00
Flagyl 500 Mg IV
Q8H ALISIA
Norepinephrine Bitartrate 4 mg in 250 mls @ 0 mls/hr 07/15/24 09:00
Levophed IV
PER PROTOCOL ALISIA
Protocol
Per Protocol
Vancomycin HCl 2,000 mg/ 540 mls @ 270 mls/hr 07/15/24 10:30 07/15/24 10:47
Sodium Chloride IV 07/15/24 12:29 540 mls
ONCE ONE Administration
Insulin Aspart 0 units 07/15/24 08:10
Insulin Aspart Low Resistance 300 Units/3 Ml Pen.Injctr SC 08/12/24 07:29
Q6 ALISIA
Protocol
Metoprolol Succinate 100 mg 07/15/24 08:00 07/15/24 08:08
Metoprolol 100 Mg Extended Release Tablet PO 08/12/24 07:59 Not Given
BID ALISIA
Pantoprazole Sodium 40 mg 07/15/24 08:00 07/15/24 08:08
Pantoprazole 40 Mg Delayed Release Tablet PO 08/12/24 07:59 Not Given
BID ALISIA
Sodium Chloride 0 flush 07/14/24 23:00 07/15/24 01:17
Sodium Chloride 0.9% (Flush) Syringe IV 08/11/24 22:59 1 flush
PER PROTOCOL ALISIA Administration
Sterile Water 10 ml 07/15/24 20:00
Sterile Water For Injection 10 Ml Vial IV 08/12/24 19:59
Q8H ALISIA
Tamsulosin HCl 0.4 mg 07/15/24 08:00 07/15/24 08:08
Tamsulosin 0.4 Mg Capsule PO 08/12/24 07:59 Not Given
DAILY ALISIA
Thiamine HCl 100 mg 07/15/24 08:00 07/15/24 08:08
Thiamine 100 Mg Tablet PO 08/12/24 07:59 Not Given
BID ALISIA
Ticagrelor 90 mg 07/15/24 08:00 07/15/24 08:07
Ticagrelor (Brilinta) 90 Mg Tablet PO 08/12/24 07:59 Not Given
BID ALISIA
Zinc Oxide 0 applic 07/15/24 01:20
Zinc Oxide 20% (Ointment) 30 Gram Tube TOPICAL
DAILYPRN PRN
B/L BUTTOCK
Home Medications
�Medication �Instructions �Recorded
acetaminophen 325 mg tablet 650 mg PO Q4HPRN PRN Temp > 100, 04/29/24
(Tylenol) mild pain
ammonium lactate 12 % lotion 1 applic topical TID B/L LOWER 04/29/24
(AmLactin) EXTREMITES
atorvastatin 40 mg tablet 40 mg PO HS High Cholesterol 04/29/24
fluticasone propionate 50 1 spray intranasal DAILYPRN PRN 04/29/24
mcg/actuation nasal ALLERGIES
spray,suspension
insulin lispro 100 unit/mL 2 - 10 sliding scale dose SC AC 04/29/24
subcutaneous pen Diabetes
losartan 50 mg tablet 50 mg PO DAILY Blood Pressure 04/29/24
pantoprazole 40 mg tablet,delayed 40 mg PO BID GERD 04/29/24
release
thiamine HCl (vitamin B1) 100 mg 200 mg PO DAILY Supplement 04/29/24
tablet
ticagrelor 90 mg tablet 90 mg PO BID Blood Clot 04/29/24
Prevention/Tx
bisacodyl 10 mg rectal suppository 10 mg OR DAILYPRN PRN IF NO BM 04/30/24
(Dulcolax (bisacodyl)) AFTR MOM
magnesium hydroxide 400 mg/5 mL 2,400 mg PO DAILYPRN PRN IF NO BM 04/30/24
oral suspension (Milk of MagnClarityRay) BY 3RD DAY
metoprolol succinate 100 mg 100 mg PO BID #0 tabs 05/06/24
tablet,extended release 24 hr
tamsulosin 0.4 mg capsule 0.4 mg PO DAILY #0 caps 05/06/24
apixaban 5 mg tablet (Eliquis) 5 mg PO BID 06/05/24
divalproex 125 mg tablet,delayed 125 mg PO BID 06/05/24
release
insulin glargine 100 unit/mL (3 5 unit (0.05 mL) SC HS Diabetes #0 06/08/24
mL) subcutaneous pen mL
oxycodone 5 mg tablet 5 mg PO BIDPRN PRN severe pains #7 06/08/24
tabs
aripiprazole 10 mg tablet (Abilify) 10 mg PO HS 07/15/24
ferrous sulfate 325 mg (65 mg 325 mg PO DAILY 07/15/24
iron) tablet
loperamide 2 mg tablet (Imodium 2 mg PO Q6HPRN PRN diarrhea 07/15/24
A-D)
sodium phosphates 19 gram-7 118 ml OR DAILYPRN PRN if dulcolax 07/15/24
gram/118 mL enema (Fleet Enema) is ineffective after 24hrs
[2024-07-15 12:10] LABS: Glucose - Point of Care 157 mg/dl (70-99)
[2024-07-15] MEDS: NOVOLOG FLEXPEN-LOW RESISTANCE 1 UNITS SC ×2 (12:40→18:10)
--- NOTE | 2024-07-15 12:54 | PTOTSP ---
SPEECH THERAPY SWALLOW EVALUATION:
Patient exhibits clinical signs of oropharyngeal dysphagia, likely chronic 2/2 history of CVA, GERD, aphonic voice, and acutely exacerbated by pneumonia, possible acute/subacute CVA. Patient remains at risk for aspiration and related complications
given tenuous pulmonary status and limited mobility. Exhibiting signs of aspiration with thin liquids at bedside. WBC elevated. Chest CT demonstrating extensive pneumonia in Right lung, suspicious for aspiration-related infection. Recommend
instrumental assessment of swallowing (VSE) to further assess swallow physiology. Recommend patient to be NPO except for necessary medications crushed in puree until VSE. Consider temporary alternate means for nutrition/hydration until VSE. ST to
follow, determine further recommendations following VSE results.
RECOMMEND:
1) VSE
2) NPO except for necessary medications crushed in puree until VSE
3) Oral care 3x/day to reduce risk for nosocomial infection
4) ST to follow with additional recommendations following VSE results
--- NOTE | 2024-07-15 13:15 | PTOTSP ---
Speech Language Pathology
VIDEOFLUOROSCOPIC SWALLOWING EXAMINATION (VSE) completed. Pt with severe pharyngeal dysphagia. Mostly mild pharyngeal residue noted with moderate amount with mildly thick liquids via cup and puree. Decreased airway protection noted with minimal
laryngeal closure. This led to consistent aspiration.
Recommend:
(1) NPO
(2) Consideration for short-term non-oral nutrition
(3) Oral care 4x/day with suctioning as needed
(4) Non-oral meds
(5) Allow ice chips post oral care given supervision per Aspiration Risk Hydration Protocol (ARHP)
(6) Consider ENT consult given largely aphonic vocal quality and minimal airway protection. Question integrity of vocal folds
(7) COMMUNITY OUTREACH DIRECTOR to continue to follow
--- NOTE | 2024-07-15 13:15 | PTCARENOTE ---
Pt to radiology w/ this RN for ordered VSE.
[2024-07-15 13:20] LABS: ALT (SGPT) 15 U/L (0-50); AST (SGOT) 17 U/L (17-59); Albumin 2.5 g/dl (3.5-5.0); Alkaline Phosphatase 97 U/L (38-126); Blood Urea Nitrogen 55 mg/dl (9-20); Calcium 8.5 mg/dl (8.4-10.2); Carbon Dioxide 24 mmol/L (22-30); Chloride 111 mmol/L (98-107); Estimated Creatinine Clearance 68 ml/min; Glucose 154 mg/dl (70-99); Potassium 4.1 mmol/L (3.5-5.1); Sodium 141 mmol/L (135-145); Total Bilirubin 0.5 mg/dl (0.2-1.3); Total Protein 5.5 g/dl (6.3-8.2); eGFR > 60.00
--- NOTE | 2024-07-15 14:15 | CON.CAR ---
Consultation
Consultation Request
Date/Time Consultation Requested: 07/15/24
Date/Time Consultation Performed: 07/15/24
Requesting Provider: Dr Velazquez
Performing Provider: Dr Kevin
Reason for Consultation: rv dilation
Medical History
-
History of Present Illness:
69-year-old prison resident with a history of CVA with left hemiparesis, OBS, atrial fibrillation on chronic anticoagulation, CAD status post PCI on Brilinta who we are asked to consult on for a echocardiogram showing RV dilation and
hypokinesis. No prior study available for comparison. Apparently he presented with altered mental status. He is a poor historian. His Azul is at the bedside and adds to history but also is somewhat of an incomplete historian. She says he was
in his usual state of health of poorly controlled diabetes until June or so of last year when he was hospitalized with a leg wound necessitating a right BKA, with resultant PR when he 'coded on the table'. Additionally she thinks that is when he
had his stroke. He failed acute rehab and was sent to custodial prison care. He has then had recurrent hospitalizations at [facility] for kidney stones and chronic hematuria and iron deficiency. Upon arrival he was noted to be
hypotensive and sent to the ICU. There was not a clear etiology. Echocardiogram was done today showing normal left ventricular size and systolic function without regional wall motion abnormality. Right ventricle was dilated with reduced systolic
function but no prior study available. No valvulopathy seen. We are asked to comment. I did relay these results at the time completion to Dr. Shelton and recommended a CT PE scan if this was reasonable. CT scan did not show evidence of
pulmonary embolism but did show extensive pneumonia in the right lung involving the right lower lobe and right upper lobe. With subcarinal and left hilar adenopathy. Severe coronary artery calcifications were noted.He also had a swallowing study
showing severe pharyngeal dysphagia. It is recommended he be NPO, Dobof now in place.
Past Medical History
Past Medical History: Arrhythmias (atrial fibrillation), CVA (Left hemiparesis), GERD, HTN, IDDM and Renal Failure
Past Surgical History: Other (BKA)
Social History
Tobacco: Non-Smoker
Personal:
Living: Jail
Family History
Family History: Reviewed & Not Pertinent
Allergies / Home Medications
Allergy/AdvReac Type Severity Reaction Status Date / Time
Penicillins Allergy Swelling Verified 07/14/24 21:01
sulfamethoxazole Allergy Unknown Verified 07/14/24 21:01
[From Bactrim]
trimethoprim [From Bactrim] Allergy Unknown Verified 07/14/24 21:01
�Medication �Instructions �Recorded �Confirmed �Type
acetaminophen 325 mg tablet 650 mg PO Q4HPRN PRN Temp > 100, 04/29/24 07/15/24 History
(Tylenol) mild pain
ammonium lactate 12 % lotion 1 applic topical TID B/L LOWER 04/29/24 07/15/24 History
(AmLactin) EXTREMITES
atorvastatin 40 mg tablet 40 mg PO HS High Cholesterol 04/29/24 07/15/24 History
fluticasone propionate 50 1 spray intranasal DAILYPRN PRN 04/29/24 07/15/24 History
mcg/actuation nasal ALLERGIES
spray,suspension
insulin lispro 100 unit/mL 2 - 10 sliding scale dose SC AC 04/29/24 07/15/24 History
subcutaneous pen Diabetes
losartan 50 mg tablet 50 mg PO DAILY Blood Pressure 04/29/24 07/15/24 History
pantoprazole 40 mg tablet,delayed 40 mg PO BID GERD 04/29/24 07/15/24 History
release
thiamine HCl (vitamin B1) 100 mg 200 mg PO DAILY Supplement 04/29/24 07/15/24 History
tablet
ticagrelor 90 mg tablet 90 mg PO BID Blood Clot 04/29/24 07/15/24 History
Prevention/Tx
bisacodyl 10 mg rectal suppository 10 mg WA DAILYPRN PRN IF NO BM 04/30/24 07/15/24 History
(Dulcolax (bisacodyl)) AFTR MOM
magnesium hydroxide 400 mg/5 mL 2,400 mg PO DAILYPRN PRN IF NO BM 04/30/24 07/15/24 History
oral suspension (Milk of Magnesia) BY 3RD DAY
metoprolol succinate 100 mg 100 mg PO BID #0 tabs 05/06/24 07/15/24 Rx
tablet,extended release 24 hr
tamsulosin 0.4 mg capsule 0.4 mg PO DAILY #0 caps 05/06/24 07/15/24 Rx
apixaban 5 mg tablet (Eliquis) 5 mg PO BID 06/05/24 07/15/24 History
divalproex 125 mg tablet,delayed 125 mg PO BID 06/05/24 07/15/24 History
release
insulin glargine 100 unit/mL (3 5 unit (0.05 mL) SC HS Diabetes #0 06/08/24 07/15/24 Rx
mL) subcutaneous pen mL
oxycodone 5 mg tablet 5 mg PO BIDPRN PRN severe pains #7 06/08/24 07/15/24 Rx
tabs
aripiprazole 10 mg tablet (Abilify) 10 mg PO HS 07/15/24 07/15/24 History
ferrous sulfate 325 mg (65 mg 325 mg PO DAILY 07/15/24 07/15/24 History
iron) tablet
loperamide 2 mg tablet (Imodium 2 mg PO Q6HPRN PRN diarrhea 07/15/24 07/15/24 History
A-D)
sodium phosphates 19 gram-7 118 ml WA DAILYPRN PRN if dulcolax 07/15/24 07/15/24 History
gram/118 mL enema (Fleet Enema) is ineffective after 24hrs
Review of Systems
-
All other systems: Negative unless noted
Physical Exam
Vital Signs
Temp Pulse Resp BP Pulse Ox
97.7 F 67 18 100/58 98
07/15/24 11:30 07/15/24 09:15 07/15/24 09:15 07/15/24 09:15 07/15/24 09:15
Lab Results
07/14/24 21:11
07/15/24 12:36
Troponin I 0.030 ng/ml 07/15/24 12:36
Physical Exam
General: Other (older than stated age)
HEENT: Normocephalic
Respiratory: Crackles (bibasilar)
Cardiac: S1/S2
Neuro: AO x 3
Impression / Plan
-
69-year-old prison resident with a history of CVA with left hemiparesis, atrial fibrillation/flutter on Eliquis, CAD status post PR in the spring 2023, insulin-dependent diabetes with subsequent poorly healed wounds and leg amputation (right
BKA) sent in for confusion/altered mental status. He was found to be mildly hypotensive of unclear etiology.We are asked to comment on RV dilation and hypokinesis.
Sepsis due PNA: hypotension, leukocytosis with extensive right-sided consolidation.
-Antibiotics per pulmonary medicine.
-Blood pressure responded to volume.
-Patient failed swallow study, Dobbhoff tube now in place.
Right ventricular dilation and hypokinesis:
-No evidence of right-sided heart failure on exam. Unclear chronicity.
-Will request outside records from [facility].
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
-No acute workup needed
CAD status post PCI and PR in 2023:
-For now continue Brilinta, we can consider discontinuation once timing of PCI clear.
-Records requested from [facility]
-Continue atorvastatin and beta-martínez (as blood pressure allows)
Atrial flutter/fibrillation:Present on EKG in April 2024, suspect this is chronic
Continue Eliquis
Continue beta-martínez
Status post CVA with left hemiparesis: Continue statin and anticoagulant
Diabetes complicated by leg infection status post right BKA:
Care per medicine.
Data Reviewed
-
EKG: Tracing Personally Visualized and interpreted (rate controlled aflutter rbbb)
CT Scan: Image Personally Visualized and interpreted (RV appears enlarge (not a gated study), Extensive rt side consolidation)
--- NOTE | 2024-07-15 14:20 | PTCARENOTE ---
Dr Velazquez to bedside to discuss results of VSE w/ pt. Pt agreeable to having DHT placed. DHT placed via Lt nare to 55cm. Pt tolerated well. Waiting on Abd. xray to confirm placement. Pt w/o changes noted or new complaints received.
[2024-07-15] MEDS: FLAGYL 500 MG 100 IV ×2 (14:39→20:50)
--- NOTE | 2024-07-15 15:00 | PHA.VAN.IN ---
Assessment
- Assessment
Renal Function: Appears similar to baseline (SCr 1.3/ CrCl 68)
Concomitant Antimicrobials: Cefepime, Metronidazole
Plan
- Plan
Initial / Loading Dose: Vanco 2000mg loading administered 07/15/24 1047
Maintenance Regimen: Dose by level
Monitoring: R lvl 07/16/24 0600
In consideration of the patient's renal function, will give 1G x1 dose today 07/15/24 at 1800 and assess for schedule dosing tomorrow with R level
Pharmacokinetics Vancomycin I
- -
Patient Age: 69
Patient Sex: Male
Vancomycin Day #: 1
Indication: Genito-Urinary Tract
Requesting Provider: Cat
Pertinent Antimicrobial Allergies:
Penicillin - Swelling
Sulfamethoxazole/Trimethoprim - Unknown Manifestation
Height / Weight:
Height 6 ft 4 in
Actual Weight 99.9 kg
Pertinent Past Medical History: T2DM, BKA
- Vital Signs / Lab Results
Temp Pulse Resp BP Pulse Ox
97.7 F 69 15 98/61 97
07/15/24 11:30 07/15/24 14:45 07/15/24 14:34 07/15/24 14:45 07/15/24 14:45
Lab Results - Hematology
07/14/24
21:11
WBC 16.4 H
Lab Results - Chemistry
07/14/24 07/15/24
21:11 12:36
BUN 50 H 55 H
Creatinine 1.3 1.3
Estimated Creat Clear 68 68
Albumin 3.3 L 2.5 L
07/15/24
02:25
Lactic Acid 1.1
Lab Results - Urine
07/14/24
22:29
Urine Nitrite (Reflex) Negative
Leukocyte Esterase Rfl Negative
Urine WBC (Reflex) 0-2
Ur Squamous Epith Cells 11-15
Urine Bacteria (Reflex) Moderate A
Microbiology Results
07/15/24 01:09 Influenza Types A & B (SUKHI) - Final
Nasal Swab Negative for Influenza A & B, NAAT
Negative results must be combined with clinical observations
and patient history.
Nucleic Acid Amplification test (NAAT)performed on the
[employer] platform.
--- NOTE | 2024-07-15 15:02 | WOUNDNOTE ---
[facility] RN NOTE: Reviewed chart and met with patient. Patient with right BKA, healed and intact. Left LE with scabbed abrasions. Patient cannot recall how these abrasions occurred. His left great toe has a newly healed plantar ulcer. Patient reported
that he goes to wound care center for this wound as was recently discharged b/c wound has healed. Patient could not be turned due to emergent pending abdominal x-ray for new Dobhoff. Spoke to ALMA Pimentel who noted that sacrum was intact. Left heel
intact. Patient is on a CentrellBeCouply Air. He is currently NPO. No open wounds noted, will sign off.
--- NOTE | 2024-07-15 16:00 | PTCARENOTE ---
Following phone call from radiologist, DHT advanced 5cm to 60cm. Pt tolerated well. Repositioned q2hr and comfort care provided. Pt's visited at bedside briefly, now gone home. Pt's aware of results of VSE w/ need for DHT. Emotional
support provided to pt.
--- NOTE | 2024-07-15 17:10 | WOUNDNOTE ---
LEFT LATERAL LEG
[2024-07-15] MEDS: VANCOCIN 200 IV (18:07)
[2024-07-15 18:10] LABS: Glucose - Point of Care 156 mg/dl (70-99)
[2024-07-15] MEDS: DEPAKENE 125 MG TUBE (20:47)
[2024-07-15] MEDS: VITAMIN B1 100 MG TUBE (20:48)
[2024-07-15] MEDS: ELIQUIS 5 MG TUBE (20:49)
[2024-07-15] MEDS: BRILINTA 90 MG TUBE (20:49)
[2024-07-15] MEDS: PROTONIX IV 40 MG IV (20:50)
[2024-07-15] MEDS: NSS (PRESERVATIVE FREE) 10 ML IV (20:50)
[2024-07-15] MEDS: LIPITOR 40 MG TUBE (22:40)
[2024-07-15] MEDS: ABILIFY 10 MG TUBE (22:40)
[2024-07-15] MEDS: LANTUS 0.05 UNITS SC (22:42)
[2024-07-15 22:46] LABS: Glucose - Point of Care 134 mg/dl (70-99)
[2024-07-16 01:02] LABS: Glucose - Point of Care 127 mg/dl (70-99)
[2024-07-16] MEDS: NOVOLOG FLEXPEN-LOW RESISTANCE SC ×4 (01:13→16:30)
[2024-07-16 03:19] VITALS: BP 97/49
[2024-07-16] MEDS: STERILE WATER FOR INJECTION 10 ML IV ×3 (04:44→19:18)
[2024-07-16] MEDS: FLAGYL 500 MG 100 IV ×3 (04:44→19:18)
[2024-07-16] MEDS: MAXIPIME 2000 MG IV ×3 (04:44→19:19)
[2024-07-16 05:16] LABS: Blood Urea Nitrogen 47 mg/dl (9-20); Calcium 8.5 mg/dl (8.4-10.2); Carbon Dioxide 23 mmol/L (22-30); Chloride 112 mmol/L (98-107); Estimated Creatinine Clearance 73 ml/min; Glucose 103 mg/dl (70-99); Magnesium 1.6 mg/dl (1.6-2.3); Potassium 3.8 mmol/L (3.5-5.1); Sodium 142 mmol/L (135-145); eGFR > 60.00
[2024-07-16 05:20] LABS: Vancomycin Random 17.5 ug/ml
[2024-07-16 05:38] LABS: % Basophils 0.8 % (0-2); % Eosinophils 3.8 % (0-6); % Immature Granulocytes 0.8 % (0-0.5); % Lymphocytes 13.8 % (20.5-51.1); % Monocytes 7.1 % (1.7-9.3); % Neutrophils 73.7 % (42.2-75.2); Absolute Basophils 0.1 10^3/uL (0-0.2); Absolute Eosinophils 0.3 10^3/uL (0-0.7); Absolute Immature Granulocytes 0.1 10^3/uL (0-0.05); Absolute Lymphocytes 0.9 10^3/uL (1.2-3.4); Absolute Monocytes 0.5 10^3/uL (0.1-0.6); Absolute Neutrophils 4.8 10^3/uL (1.4-6.5); Hematocrit 22.4 % (39.0-52.0); Hemoglobin 7.4 g/dL (13.0-18.0); Mean Corpuscular Hgb 29.1 pg (27.0-31.0); Mean Corpuscular Volume 88.2 fL (80.0-94.0); Mean Platelet Volume 9.7 fL (7.4-10.4); Nucleated Red Blood Cells % 0 % (-); Platelet Count 180 10^3/uL (130-400); Red Blood Cell Count 2.54 10^6/uL (4.70-6.10); Red Cell Dist. Width 14.6 % (11.5-14.5); White Blood Cell Count 6.5 10^3/uL (4.8-10.8)
[2024-07-16 06:32] LABS: Glucose - Point of Care 99 mg/dl (70-99)
[2024-07-16 07:25] VITALS: BP 111/66
--- NOTE | 2024-07-16 07:45 | W.PN.HOSP.TC ---
Today's Communication/Plan
-
See plan
Assessment / Plan
Assessment / Plan
Physical Exam
General: Well Developed, Well Nourished and No Apparent Distress
HEENT: Normocephalic, Moist mucous membranes
Respiratory: Clear to Auscultation Bilaterally
Cardiac: S1/S2 and Regular Rhythm
GI: Soft, Non Tender, Non Distended and Normal Bowel Sounds
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
Skin: Warm. Dry.
Neuro: Awake
Psych: Apparent Dementia
Assessment/Plan
69-year-old male with a past medical history significant for atrial fibrillation on anticoagulation with Eliquis, CAD status PCI in 2023 on Brilinta, CHF-unknown type, insulin-dependent diabetes, hypertension, left hemiparesis s/p CVA, GERD, chronic
kidney disease stage 3, psychiatric disorder, recent significant decline in mental status for which she is currently at nursing/rehab facility and spouse reports forgetfulness but generally alert and oriented and able to carry on a conversation who
presented to the emergency department with fatigue and altered mental status. Patient has resided at [facility] since October 2023, they notified her today that he had a acute onset of change in mental status that was witnessed at dinner time when
patient was not verbally responding to staff/more confused and was having a difficult time holding water cup/weakness.
Patient was admitted to the hospital at the beginning of last month with anemia and weakness and was thought to have chronic hematuria with resultant mixed iron deficiency picture. He did receive 2 units of blood and his hemoglobin appeared to have
been stable since. Is supposed to have restarted the Eliquis after his cystoscopy on 10 June 2024. Patient unable to say whether he did get the cystoscopy or not. Outpatient records indicate that he had been restarted back on the Eliquis and
Brilinta. He is unable to say exactly why he was sent to the emergency department but he did endorse fatigue and more tired than usual. He also appeared more confused compared to baseline according to spouse. There is concern for chronic
left-sided weakness which appeared to be essentially at baseline. Patient was noted to have whispering voice which also had been present for approximately 6-8 months.
Neurological exam at the time of admission showed no focal deficits.
On admission, he was afebrile here with a temp of 98.1, blood pressure ranged from 80s to 90s systolic, pulse was 95 and he was satting 98% on room air. CBC showed white blood cell count of 16, hemoglobin was 9.3. Electrolytes were normal. BUN
was elevated at 50 creatinine 1.3.
ECG showed atrial flutter with a rate of 82. CT of the head was concerning with findings most likely representing encephalomalacia/old infarction in the left posterior parietal-occipital region greater than the right occipital lobe. Cannot entirely
exclude superimposed small acute/subacute nonhemorrhagic infarct in the left posterior parietal-occipital region.
Chest x-ray showed extremely low lung volumes, mild predominantly linear right basilar opacity suggesting subsegmental atelectasis.

#Hypotension -- RESOLVED
#Allergy to Penicillins
#Leukocytosis Likely Secondary to Bilateral Pneumonia (RT>LT) -- extensive right-sided pneumonia; left sided pneumonia has improved compared to months ago
#Suspected Aspiration Pneumonia and Community Acquired Pneumonia
#MRSA Positive
#Mild subcarinal and left hilar adenopathy -- probably reactive secondary to pneumonia.
-On admission, BP slightly softer than baseline and overall weak appearing -- but blood pressure continued to worsen with MAP in the 50s -- therefore patient was initially transferred to ICU, ended up not needing vasopressors
and was transferred to telemetry on 07/15/24
-Echo
-Procal repeated around time of admission and was quite high -- started on broad spectrum antibiotics with Vancomycin and Cefepime -- continue
-Repeat Procal tomorrow morning to make sure it is going down
-Will need follow-up CT Chest in 4 to 6 months (or as determined by outpatient pulmonary)
-COVID and Influenza were negative
-Sputum culture
-Blood cultures negative so far
#Severe pharyngeal dysphagia on VSE on 07/15/24
-Continue NPO
-Dobhoff tube placed -- tube became clogged and GI placed another Dobhoff tube on 07/16/24
-Will start Tube Feeding as per Dietary Recommendations
-Follow aspiration precautions
#Toxic Metabolic Encephalopathy Secondary to TIA/acute-subacute stroke versus infectious process
#Left Hemiparesis with history of CVA
-Likely from pneumonia and dehydration -- continue antibiotics
-CXR with extremely low lung volumes, mild predominantly linear right basilar opacity suggesting subsegmental atelectasis and/or scarring -- monitor oxygen saturation
-Head CT: No acute intracranial hemorrhage, encephalomalacia/old infarction in the left posterior parietal-occipital region greater than the right occipital lobe; cannot entirely exclude superimposed small acute/subacute
nonhemorrhagic infarct in the left posterior parietal-occipital region -- per neurology 4 strokes on patient's neuroimaging
-Concern is for possible subacute stroke in the setting of holding of the anticoagulation but it sounds like the anticoagulation has been restarted (was previously held for GI bleed and hematuria) since discharge from hospital.
-Dehydration with high BUN could be contributing
-Urine culture with no growth
-Neurology consulted at time of admission: no further stroke workup is indicated, as in any case patient should be on Brilinta and Eliquis, and it appears patient has more pressing medical issues
-Neurochecks
#Right ventricular dilation and hypokinesis
-No PE on CT Chest
-Echo findings with LVEF 55-60% but RT ventricular dilation and hypokineses
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
#Hematuria on UA with moderate bacteria
#Recent history of hematuria
-Monitor hematuria and clots with routine bladder scan.
#History of Gastrointestinal Bleeding
-Patient was off Eliquis and Brilinta, but seems like based on history/records, he was placed back on them
#Hypertension
-Hold Losartan given hypotension
#CAD status PCI in 2023 on Brilinta
#Severe coronary arterial calcifications on CT Imaging
- Continue Atorvastatin and Beta Thuy as blood pressure allows
- Continue Brilinta and Eliquis
#CHF - Unknown Type -- history of HFpEF?
- Not in acute CHF, but more dehydrated
-Cautious IV fluids
-Daily weights, I's and O's
#GERD
- continue pantoprazole
#Paroxysmal A-Fib / Flutter on outpatient Eliquis
- continue Eliquis, metoprolol and ticagrelor
#CKD III
#Azotemia -- suspected prerenal
- monitor BMP
- bladder scan protocol
- IV fluids were given
#DM-II
- AccuCheck Q6H given tube feeding
- SSI
- continue basal insulin at less than home dose (5 units at home) for now -- can increase if needed
#Psychiatric Disorder - Unspecified
- continue Abilify and divalproex
Code status: Full code (On admission, patient stated clearly he wants to be full code despite prior DNR on POLST form)
DVT prophylaxis: Eliquis
Anticipated Discharge: > 48 hours
Subjective/Interval History
-
Date of Service: July 16, 2024
Patient was seen and examined. He denied any new symptoms or complaints.
Objective Data
-
Labs:
Laboratory Results
07/16/24
04:34
WBC 6.5
Hgb 7.4 L D
Hct 22.4 L
Plt Count 180 D
Sodium 142
Potassium 3.8
Chloride 112 H
Carbon Dioxide 23
BUN 47 H
Creatinine 1.2
Glucose 103 H
Calcium 8.5
Vital Signs:
Vital Signs
Temp Pulse Resp BP Pulse Ox
97.6 F 83 17 111/66 100
07/16/24 07:25 07/16/24 07:25 07/16/24 07:25 07/16/24 07:25 07/16/24 07:25
I&O
07/15/24 07/16/24 07/17/24
06:59 06:59 06:59
Intake Total 570 / 570
Output Total 1100 / 1100
Balance -530 / -530
--- NOTE | 2024-07-16 09:15 | PHA.VAN.FU ---
Addendum entered and electronically signed by Sweta Dunham [facility] 07/17/24 08:40:
CORRECTION - Random Level: 17.5 DRAWN ~10 HR AFTER PRIOR DOSE 07/15 VANCO 1000MG @1807
Original Note:
Vancomycin Assessment / Plan
- Assessment
Renal Function: Stable
WBC's are: Trending Down
In the past 24 hrs, patient has been: Afebrile
Concomitant Antimicrobials: CEFEPIME
- Assessment - Therapeutic Drug Monitoring
Random Level: 17.5 DRAWN ~14 HR AFTER PRIOR DOSE 07/15 VANCO 1000MG @1807
- Dosing Plan
Dosing by Level: Re-dose today (VANCO 1250MG X1)
- Monitoring Plan
Random Level: 07/17 @0600
- Follow Up
Pharmacy will continue to follow.
Vancomycin Follow UP
- -
Patient Age: 69
Patient Sex: Male
Vancomycin Day #: 2
Indication: Genito-Urinary Tract
Requesting Provider: Cat
Pertinent Antimicrobial Allergies:
Penicillin - Swelling
Sulfamethoxazole/Trimethoprim - Unknown Manifestation
Height / Weight:
Height 6 ft 4 in
Actual Weight 90.718 kg
Pertinent Past Medical History: T2DM, BKA
- Vital Signs / Lab Results
Temp Pulse Resp BP Pulse Ox
97.6 F 83 17 111/66 100
07/16/24 07:25 07/16/24 07:25 07/16/24 07:25 07/16/24 07:25 07/16/24 07:25
Lab Results - Hematology
07/14/24 07/16/24
21:11 04:34
WBC 16.4 H 6.5
Lab Results - Chemistry
07/14/24 07/15/24 07/16/24
21:11 12:36 04:34
BUN 50 H 55 H 47 H
Creatinine 1.3 1.3 1.2
Estimated Creat Clear 68 68 73
Albumin 3.3 L 2.5 L
07/15/24
02:25
Lactic Acid 1.1
Microbiology Results
07/15/24 09:02 Blood Culture - Preliminary
Blood/Venous No Growth in 24 hours- Final report to follow
07/15/24 08:30 Blood Culture - Preliminary
Blood/Venous No Growth in 24 hours- Final report to follow
07/15/24 01:09 Influenza Types A & B (SUKHI) - Final
Nasal Swab Negative for Influenza A & B, NAAT
Negative results must be combined with clinical observations
and patient history.
Nucleic Acid Amplification test (NAAT)performed on the
[employer] platform.
Therapeutic Drug Monitoring
Random Vancomycin 17.5 ug/ml 07/16/24 04:34
[2024-07-16 11:18] VITALS: BP 114/69
--- NOTE | 2024-07-16 11:43 | W.PN.CD ---
Today's Communication / Plan
-
continue current care.
follow up with typical op cardiology
I will sign off
Impression / Plan
-
69-year-old shelter resident with a history of CVA with left hemiparesis, atrial fibrillation/flutter on Eliquis, CAD status post MS in the spring 2023, insulin-dependent diabetes with subsequent poorly healed wounds and leg amputation (right
BKA) sent in for confusion/altered mental status. He was found to be mildly hypotensive of unclear etiology.We are asked to comment on RV dilation and hypokinesis.
Sepsis due PNA: hypotension, leukocytosis with extensive right-sided consolidation.
-improved
-Antibiotics per pulmonary medicine.
-Blood pressure responded to volume.
-Patient failed swallow study, Dobbhoff tube now in place.
Right ventricular dilation and hypokinesis:
-No evidence of right-sided heart failure on exam. Unclear chronicity.
-Will request outside records from [facility].
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
CAD status post PCI and MS in 2023:
-For now continue Brilinta, we can consider discontinuation once timing of PCI clear.
-Records requested from [facility]
-Continue atorvastatin and beta-martínez (as blood pressure allows)
Atrial flutter/fibrillation:Present on EKG in April 2024, suspect this is chronic
Continue Eliquis
Continue beta-martínez
Anemia:
-suspect today's value more in line with baseline, and yesterday was erroneous.
-monitor, no signs/sx of bleeding
-cautiously continue eliquis/ticagrelor
Status post CVA with left hemiparesis: Continue statin and anticoagulant
Diabetes complicated by leg infection status post right BKA:
Care per medicine.
Subjective:
He is lying flat in bed without any dysnea
Physical Exam
Vital Signs/Labs
Vital Signs
Temp Pulse Resp BP Pulse Ox
97.8 F 81 17 114/69 98
07/16/24 11:18 07/16/24 11:18 07/16/24 11:18 07/16/24 11:18 07/16/24 11:18
07/15/24 07/16/24 07/17/24
06:59 06:59 06:59
Actual Weight 221 lb 9.033 oz 200 lb
07/16/24 04:34
07/16/24 04:34
PT 19.1 Sec (11.4-14.6) H 07/15/24 06:14
INR 1.55 07/15/24 06:14
APTT 38.6 Sec (23.4-35.0) H 07/15/24 06:14
Magnesium 1.6 mg/dl (1.6-2.3) 07/16/24 04:34
Triglycerides 52 mg/dl (10-149) 07/15/24 06:14
LDL Cholesterol, Calc 20 mg/dl 07/15/24 06:14
VLDL Cholesterol, Calc 10 mg/dl (0-30) 07/15/24 06:14
HDL Cholesterol 38 mg/dl 07/15/24 06:14
LAB Results
07/15/24 07/15/24
06:14 12:36
Troponin I 0.036 H* 0.030
Physical Exam
Constitutional: No acute distress
Cardiovascular: JVD pressure is normal, Systolic murmur absent, Diastolic murmur absent, Rhythm/rate is irregular and Pedal edema present (r BKA no edema, lle with 1+ edema)
Respiratory: Respiratory effort normal, Lungs clear to auscul., Wheeze Absent, Crackles Absent and Rhonchi Absent
Neuro/Psych: AO x 3
Data Reviewed
-
Date of Service: July 16, 2024
[2024-07-16 11:44] LABS: Glucose - Point of Care 90 mg/dl (70-99)
[2024-07-16] MEDS: VANCOCIN 275 MG IV (11:47)
[2024-07-16] MEDS: NSS (PRESERVATIVE FREE) 10 ML IV ×2 (11:49→19:18)
[2024-07-16] MEDS: PROTONIX IV 40 MG IV ×2 (11:50→19:19)
[2024-07-16] MEDS: LAC HYDRIN, AM LACTIN LOTION 1 APPLIC TOPICAL ×3 (11:57→21:49)
[2024-07-16] MEDS: BRILINTA TUBE (12:52)
[2024-07-16] MEDS: VITAMIN B1 TUBE (12:52)
[2024-07-16] MEDS: FLOMAX TUBE (12:52)
[2024-07-16] MEDS: ELIQUIS TUBE (12:52)
[2024-07-16] MEDS: DEPAKENE TUBE (12:52)
--- NOTE | 2024-07-16 13:57 | W.PN.UPDATE ---
Update Note
Progress Note Update
Asked to place DHT given prior had clogged
Placed bedside without issue and advanced with tap at 60cm at nose
AXR confirmed placement after advancement
Stylet removed and ok to use
Above communicated to hospitalist and RN
Please call for ?
--- NOTE | 2024-07-16 15:26 | CM ---
Patient seen at bedside
Dx: change in MS, TIA/CVA
IA Completed
CM consult completed
Resides at [facility]
Referral entered in [facility], notified [facility] liaison
PCP: Dr. Lal
Pharmacy: [facility]
PLAN: Return to [facility] when medically stable
Report #: [phone] Fax #: [phone]
[2024-07-16 15:41] VITALS: BP 102/63
[2024-07-16 16:26] LABS: Glucose - Point of Care 84 mg/dl (70-99)
[2024-07-16 19:16] VITALS: BP 127/75
[2024-07-16] MEDS: VITAMIN B1 100 MG TUBE (19:18)
[2024-07-16] MEDS: ELIQUIS 5 MG TUBE (19:18)
[2024-07-16] MEDS: DEPAKENE 125 MG TUBE (19:19)
[2024-07-16] MEDS: BRILINTA 90 MG TUBE (19:20)
[2024-07-16 21:24] LABS: Glucose - Point of Care 71 mg/dl (70-99)
[2024-07-16] MEDS: LIPITOR 40 MG TUBE (21:45)
[2024-07-16] MEDS: ABILIFY 10 MG TUBE (21:46)
[2024-07-16 23:51] VITALS: BP 121/77
[2024-07-17 00:10] LABS: Glucose - Point of Care 67 mg/dl (70-99)
[2024-07-17] MEDS: DEXTROSE 50% SYRINGE 12.5 GRAMS IV (00:14)
[2024-07-17] MEDS: LANTUS SC (00:18)
[2024-07-17] MEDS: NOVOLOG FLEXPEN-LOW RESISTANCE SC ×4 (00:18→17:19)
[2024-07-17 00:42] LABS: Glucose - Point of Care 95 mg/dl (70-99)
[2024-07-17] MEDS: STERILE WATER FOR INJECTION 10 ML IV ×3 (03:01→21:45)
[2024-07-17] MEDS: FLAGYL 500 MG 100 IV ×3 (03:01→21:43)
[2024-07-17] MEDS: MAXIPIME 2000 MG IV ×3 (03:01→21:46)
[2024-07-17 03:08] VITALS: BP 96/56
[2024-07-17 06:04] LABS: Glucose - Point of Care 95 mg/dl (70-99)
[2024-07-17 07:30] VITALS: BP 122/75
[2024-07-17 07:55] LABS: Blood Urea Nitrogen 38 mg/dl (9-20); Calcium 8.7 mg/dl (8.4-10.2); Carbon Dioxide 24 mmol/L (22-30); Chloride 114 mmol/L (98-107); Estimated Creatinine Clearance 80 ml/min; Glucose 91 mg/dl (70-99); Magnesium 1.6 mg/dl (1.6-2.3); Potassium 3.8 mmol/L (3.5-5.1); Sodium 143 mmol/L (135-145); eGFR > 60.00
[2024-07-17 07:56] LABS: % Basophils 1.1 % (0-2); % Eosinophils 5.9 % (0-6); % Immature Granulocytes 0.7 % (0-0.5); % Lymphocytes 20.1 % (20.5-51.1); % Monocytes 7.9 % (1.7-9.3); % Neutrophils 64.3 % (42.2-75.2); Absolute Basophils 0.1 10^3/uL (0-0.2); Absolute Eosinophils 0.3 10^3/uL (0-0.7); Absolute Lymphocytes 0.9 10^3/uL (1.2-3.4); Absolute Monocytes 0.4 10^3/uL (0.1-0.6); Hematocrit 24.4 % (39.0-52.0); Hemoglobin 7.9 g/dL (13.0-18.0); Mean Corp Hgb Conc. 32.4 g/dL (33.0-37.0); Mean Corpuscular Hgb 28.5 pg (27.0-31.0); Mean Corpuscular Volume 88.1 fL (80.0-94.0); Mean Platelet Volume 9.7 fL (7.4-10.4); Nucleated Red Blood Cells % 0 % (-); Platelet Count 198 10^3/uL (130-400); Red Blood Cell Count 2.77 10^6/uL (4.70-6.10); Red Cell Dist. Width 14.5 % (11.5-14.5); White Blood Cell Count 4.6 10^3/uL (4.8-10.8)
--- NOTE | 2024-07-17 08:11 | W.PN.HOSP.TC ---
Today's Communication/Plan
-
Continue antibiotics
Continue tube feeds
Measures to address intermittent Dobhoff tube clogging discussed with patient's nurse
Will need GOC discussion -- tried reaching patient's spouse Carolyn over the weekend with no success
Assessment / Plan
Assessment / Plan
Physical Exam
General: Well Developed, Well Nourished and No Apparent Distress
HEENT: Normocephalic, Moist mucous membranes. DOBHOFF TUBE IN PLACE.
Respiratory: Clear to Auscultation Bilaterally
Cardiac: S1/S2 and Regular Rhythm
GI: Soft, Non Tender, Non Distended and Normal Bowel Sounds
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
Skin: Warm. Dry.
Neuro: Awake
Psych: Apparent Dementia
Assessment/Plan
69-year-old male with a past medical history significant for atrial fibrillation on anticoagulation with Eliquis, CAD status PCI in 2023 on Brilinta, CHF-unknown type, insulin-dependent diabetes, hypertension, left hemiparesis s/p CVA, GERD, chronic
kidney disease stage 3, psychiatric disorder, recent significant decline in mental status for which she is currently at nursing/rehab facility and spouse reports forgetfulness but generally alert and oriented and able to carry on a conversation who
presented to the emergency department with fatigue and altered mental status. Patient has resided at [facility] since October 2023, they notified her today that he had a acute onset of change in mental status that was witnessed at dinner time when
patient was not verbally responding to staff/more confused and was having a difficult time holding water cup/weakness.
Patient was admitted to the hospital at the beginning of last month with anemia and weakness and was thought to have chronic hematuria with resultant mixed iron deficiency picture. He did receive 2 units of blood and his hemoglobin appeared to have
been stable since. Is supposed to have restarted the Eliquis after his cystoscopy on 10 June 2024. Patient unable to say whether he did get the cystoscopy or not. Outpatient records indicate that he had been restarted back on the Eliquis and
Brilinta. He is unable to say exactly why he was sent to the emergency department but he did endorse fatigue and more tired than usual. He also appeared more confused compared to baseline according to spouse. There is concern for chronic
left-sided weakness which appeared to be essentially at baseline. Patient was noted to have whispering voice which also had been present for approximately 6-8 months.
Neurological exam at the time of admission showed no focal deficits.
On admission, he was afebrile here with a temp of 98.1, blood pressure ranged from 80s to 90s systolic, pulse was 95 and he was satting 98% on room air. CBC showed white blood cell count of 16, hemoglobin was 9.3. Electrolytes were normal. BUN
was elevated at 50 creatinine 1.3.
ECG showed atrial flutter with a rate of 82. CT of the head was concerning with findings most likely representing encephalomalacia/old infarction in the left posterior parietal-occipital region greater than the right occipital lobe. Cannot entirely
exclude superimposed small acute/subacute nonhemorrhagic infarct in the left posterior parietal-occipital region.
Chest x-ray showed extremely low lung volumes, mild predominantly linear right basilar opacity suggesting subsegmental atelectasis.

#Hypotension -- RESOLVED
#Allergy to Penicillins
#Leukocytosis Likely Secondary to Bilateral Pneumonia (RT>LT) -- extensive right-sided pneumonia; left sided pneumonia has improved compared to months ago
#Suspected Aspiration Pneumonia and Community Acquired Pneumonia
#MRSA Positive
#Mild subcarinal and left hilar adenopathy -- probably reactive secondary to pneumonia.
-On admission, BP slightly softer than baseline and overall weak appearing -- but blood pressure continued to worsen with MAP in the 50s -- therefore patient was initially
transferred to ICU --> BP eventually improved with IV fluids and patient ended up not needing vasopressors --> was transferred to telemetry on 07/15/24
-Procal repeated around time of admission (by admission team) was quite high -- started on broad spectrum antibiotics with Vancomycin (MRSA positive) and Cefepime -->
continue
-Repeat Procal is 0.84 as of 07/17/24 -- [facility] since [facility]cal is >0.25, continue antibiotics
-Will need follow-up CT Chest in 4 to 6 months (or as determined by outpatient pulmonary)
-COVID and Influenza were negative
-Sputum culture was ordered -- but nothing collected or sent yet
-Blood cultures negative so far
#Severe pharyngeal dysphagia on VSE on 07/15/24
-Continue NPO as per speech therapy
-Dobhoff tube placed -- tube became clogged and GI placed another Dobhoff tube on 07/16/24 -- tube continued to have intermittent clogging issues but advised nurse to use
syringe with bicarb/zenpep/water to unclog the tube, a very small amount of Cassidy Stephany has also worked
-Will start Tube Feeding as per Dietary Recommendations
-Follow aspiration precautions
#Toxic Metabolic Encephalopathy Secondary to TIA/acute-subacute stroke versus infectious process
#Left Hemiparesis with history of CVA
-Likely from pneumonia and dehydration -- continue antibiotics and tube feeding plus free water flushes
-CXR with extremely low lung volumes, mild predominantly linear right basilar opacity suggesting subsegmental atelectasis and/or scarring -- monitor oxygen saturation
-Head CT: No acute intracranial hemorrhage, encephalomalacia/old infarction in the left posterior parietal-occipital region greater than the right occipital lobe; cannot entirely
exclude superimposed small acute/subacute nonhemorrhagic infarct in the left posterior parietal-occipital region -- per neurology 4 strokes on patient's neuroimaging
-Concern is for possible subacute stroke in the setting of holding of the anticoagulation but it sounds like the anticoagulation has been restarted (was previously held for GI bleed and hematuria) since discharge from hospital.
-Dehydration with high BUN could be contributing
-Urine culture with no growth
-Neurology consulted at time of admission: no further stroke workup is indicated, as in any case patient should be continue on Brilinta and Eliquis, and it appears patient has
more pressing medical issues
-Neurochecks
#Right ventricular dilation and hypokinesis
-No PE on CT Chest
-Echo findings with LVEF 55-60% but RT ventricular dilation and hypokineses
-Materials Engineering Technician consulted cardiology: no evidence of right-sided heart failure on exam, no acute workup needed, should follow up with his [facility] server
#Hematuria on UA with moderate bacteria
#Recent history of hematuria
-Monitor hematuria and clots with routine bladder scan.
#History of Gastrointestinal Bleeding
-In the past, patient was off Eliquis and Brilinta, but seems like based on history/records, he was placed back on them
#Hypertension
-Hold Losartan given hypotension
#CAD status PCI in 2023 on Brilinta
#Severe coronary arterial calcifications on CT Imaging
- Continue Atorvastatin and if blood pressure allows, resume Beta Thuy
- Continue Brilinta and Eliquis
#CHF - Unknown Type -- history of HFpEF?
- Not in acute CHF, but more dehydrated
-Cautious IV fluids
-Daily weights, I's and O's
#GERD
- continue pantoprazole
#Paroxysmal A-Fib / Flutter on outpatient Eliquis
- Continue Eliquis and ticagrelor
- If blood pressure allows, resume Beta Thuy
#CKD III
#Azotemia -- suspected prerenal
- monitor BMP
- bladder scan protocol
- IV fluids were given, now on tube feeds with free water flushes
#DM-II
- AccuCheck Q6H given continuous tube feeding
- SSI -- has mostly not needed this so far
- Glucose is well-controlled and acceptable levels at this time
- continue basal insulin at less than home dose at 2 units HS for now (5 units at home) -- can increase if needed
#Psychiatric Disorder - Unspecified
- continue Abilify and divalproex
Code status: Full code (On admission, patient stated clearly he wants to be full code despite prior DNR on POLST form)
DVT prophylaxis: Eliquis
Patient's swallowing is being re-evaluated daily.
I tried to call patient's POA Carolyn over the weekend with no answer.
Anticipated Discharge: > 48 hours
Subjective/Interval History
-
Date of Service: July 17, 2024
Patient was seen and examined. He denied any fever, chest pain, SOB or any other complaints.
Objective Data
-
Labs:
Laboratory Results
07/17/24
07:22
WBC 4.6 L
Hgb 7.9 L
Hct 24.4 L
Plt Count 198
Sodium 143
Potassium 3.8
Chloride 114 H
Carbon Dioxide 24
BUN 38 H
Creatinine 1.1
Glucose 91
Calcium 8.7
Vital Signs:
Vital Signs
Temp Pulse Resp BP Pulse Ox
97.8 F 82 14 122/75 98
07/17/24 07:30 07/17/24 07:30 07/17/24 07:30 07/17/24 07:30 07/17/24 07:30
I&O
07/16/24 07/17/24 07/18/24
06:59 06:59 06:59
Intake Total 570 / 570
Output Total 1100 / 1100 1300 / 1300
Balance -530 / -530 -1300 / -1300
[2024-07-17 08:12] LABS: Procalcitonin 0.84 ng/ml (0.0-0.25)
--- NOTE | 2024-07-17 08:34 | PHA.VAN.FU ---
Vancomycin Assessment / Plan
- Assessment
Renal Function: SCR Decreasing
WBC's are: Trending Down
In the past 24 hrs, patient has been: Afebrile
Concomitant Antimicrobials: CEFEPIME
- Assessment - Therapeutic Drug Monitoring
Random Level: 18.0 DRAWN ~19 HOURS AFTER PREVIOUS DOSE 07/16 @1147 VANCO 1250MG
- Dosing Plan
Adjust Regimen to: VANCO 1000MG Q24H
- Monitoring Plan
No level(s) ordered at this time: CONSIDER LEVEL IN NEXT FEW DAYS
- Follow Up
Pharmacy will continue to follow.
Vancomycin Follow UP
- -
Patient Age: 69
Patient Sex: Male
Vancomycin Day #: 3
Indication: Genito-Urinary Tract
Requesting Provider: Cat
Pertinent Antimicrobial Allergies:
Penicillin - Swelling
Sulfamethoxazole/Trimethoprim - Unknown Manifestation
Height / Weight:
Height 6 ft 4 in
Actual Weight 90.718 kg
Pertinent Past Medical History: T2DM, BKA
- Vital Signs / Lab Results
Temp Pulse Resp BP Pulse Ox
97.8 F 82 14 122/75 98
07/17/24 07:30 07/17/24 07:30 07/17/24 07:30 07/17/24 07:30 07/17/24 07:30
Lab Results - Hematology
07/14/24 07/16/24 07/17/24
21:11 04:34 07:22
WBC 16.4 H 6.5 4.6 L
Lab Results - Chemistry
07/14/24 07/15/24 07/16/24
21:11 12:36 04:34
BUN 50 H 55 H 47 H
Creatinine 1.3 1.3 1.2
Estimated Creat Clear 68 68 73
Albumin 3.3 L 2.5 L
07/17/24
07:22
BUN 38 H
Creatinine 1.1
Estimated Creat Clear 80
Albumin
07/15/24
02:25
Lactic Acid 1.1
Microbiology Results
07/15/24 08:30 MRSA Screen - Final
Nose Staph aureus MRSA
07/14/24 22:29 Urine Culture - Final
Urine NO GROWTH
07/15/24 09:02 Blood Culture - Preliminary
Blood/Venous No Growth in 24 hours- Final report to follow
07/15/24 08:30 Blood Culture - Preliminary
Blood/Venous No Growth in 24 hours- Final report to follow
Therapeutic Drug Monitoring
Random Vancomycin 18.0 ug/ml 07/17/24 07:22
[2024-07-17] MEDS: VANCOCIN 200 IV (09:32)
[2024-07-17] MEDS: BRILINTA 90 MG TUBE (11:15)
[2024-07-17] MEDS: ELIQUIS 5 MG TUBE (11:16)
[2024-07-17] MEDS: VITAMIN B1 100 MG TUBE (11:16)
[2024-07-17] MEDS: DEPAKENE 125 MG TUBE (11:19)
[2024-07-17] MEDS: NSS (PRESERVATIVE FREE) 10 ML IV ×2 (11:21→21:43)
[2024-07-17] MEDS: FLOMAX 0.4 MG TUBE (11:21)
[2024-07-17] MEDS: LAC HYDRIN, AM LACTIN LOTION 1 APPLIC TOPICAL ×2 (11:22→21:46)
[2024-07-17] MEDS: PROTONIX IV 40 MG IV ×2 (11:22→21:43)
[2024-07-17 11:30] VITALS: BP 107/71
[2024-07-17 12:00] LABS: Glucose - Point of Care 136 mg/dl (70-99)
--- NOTE | 2024-07-17 13:32 | PTOTSP ---
Speech therapy
Swallowing Function: PARK INTERPRETER observed patient with several bites of IDDSI 6 solids and sips of thin liquids (cup) in which patient appeared to tolerate as he did not exhibit any overt clinical s/sx of aspiration. Patient shared that he has been
experiencing intermittent difficulty with PO as he reports it 'getting stuck' and he has to 'clear it' with a cough. This was not observed during the session. However, given patient's overt dysarthria, it is not unlikely to occur. MD ordered VSE to
07/18.
Speech: During informal conversation, patient's speech appeared to be weak, low in volume, and consist of imprecise consonant production. Patient has a right sided weakness within his oral cavity which may be related to his dysarthric speech.
Patient states his speech has been 'different' since Thursday.
Recommend:
1) Continuation of IDDSI 6 and thin liquids
2) Aspiration precautions
3) Medications as tolerated
4) VSE ordered
5) Consideration of full speech and language workup
Plan: PARK INTERPRETER will continue to follow for swallowing therapy and speech evaluation; pending hospitalization.
[2024-07-17] MEDS: ZENPEP DELAYED RELEASE CAPSULE 1 TUBE (13:49)
--- NOTE | 2024-07-17 15:03 | PTOTSP ---
Speech Therapy
Patient is NPO with dubhoff in place. Patient's dubhoff continues to get 'clogged' per RN and is currently clogged.
Patient had a recent VSE 07/15 in which DIRECTOR OF SURGERY recommended NPO with ice chips (ARHP).
DIRECTOR OF SURGERY observed patient with several ice chip presentations in which patient appeared to tolerate, however, per VSE note patient could be experiencing trace aspiration. Given patient's recent VSE findings, recommend continue NPO with consideration of
VSE repeated to assist with GOC vs nutritional options.
Recommendations:
1) NPO
2) ARHP ice chips with supervision after oral care
3) Oral care
4) Repeat VSE consideration
Plan: DIRECTOR OF SURGERY will continue to follow;pending hospitalization.
[2024-07-17 16:00] VITALS: BP 109/69
[2024-07-17 17:17] LABS: Glucose - Point of Care 143 mg/dl (70-99)
--- NOTE | 2024-07-17 17:19 | PTCARENOTE ---
patient tube feed stopping, alarming. Resistance with flushing. MD notified, Xray ordered. Tube feed stopped. Could not advance patient due to TF being clogged. PRN Zenpep mixture administered as well.
--- NOTE | 2024-07-17 17:52 | W.PN.UPDATE ---
Update Note
Progress Note Update
Just now, I called patient's spouse Carolyn and updated her on patient's current medical condition and management. I discussed goals of care with her and mentioned unlikely the swallowing will return, risk factors are history of stroke and onset of
suspected Dementia. She preferred to have speech and swallow see patient again tomorrow and see whether his swallowing improves. All questions and concerns were answered to satisfaction.
[2024-07-17] MEDS: LAC HYDRIN, AM LACTIN LOTION TOPICAL (18:14)
[2024-07-17 20:19] VITALS: BP 120/74
[2024-07-17] MEDS: BRILINTA TUBE (21:40)
[2024-07-17] MEDS: ELIQUIS TUBE (21:40)
[2024-07-17] MEDS: DEPAKENE TUBE (21:40)
[2024-07-17] MEDS: LIPITOR TUBE (21:41)
[2024-07-17] MEDS: ABILIFY TUBE (21:41)
[2024-07-17] MEDS: THIAMINE INJECTION 100 MG IV (21:44)
[2024-07-17 22:12] LABS: Glucose - Point of Care 127 mg/dl (70-99)
[2024-07-17] MEDS: LANTUS 0.02 UNITS SC (22:23)
--- NOTE | 2024-07-17 23:01 | PTCARENOTE ---
This RN was informed by day shift RN that pt tube feed clogged. Pt assessed beginning of shift. DARA Han notified of pt status at 2018. Order in for DHT to be removed and to hold tube feeds. Removed DHT and holding tube feeds, plan of care
ongoing.
[2024-07-17 23:59] VITALS: BP 140/84
[2024-07-18 00:07] LABS: Glucose - Point of Care 123 mg/dl (70-99)
[2024-07-18] MEDS: NOVOLOG FLEXPEN-LOW RESISTANCE SC ×4 (00:08→17:44)
[2024-07-18] MEDS: FLAGYL 500 MG 100 IV ×2 (03:05→11:43)
[2024-07-18] MEDS: STERILE WATER FOR INJECTION 10 ML IV ×2 (03:05→11:43)
[2024-07-18] MEDS: MAXIPIME 2000 MG IV ×2 (03:06→11:43)
[2024-07-18 03:20] VITALS: BP 129/84
[2024-07-18] MEDS: VANCOCIN 200 IV (05:44)
[2024-07-18 05:56] LABS: Glucose - Point of Care 91 mg/dl (70-99)
[2024-07-18 06:08] LABS: % Basophils 0.9 % (0-2); % Immature Granulocytes 0.7 % (0-0.5); % Lymphocytes 23.1 % (20.5-51.1); % Neutrophils 61.3 % (42.2-75.2); Absolute Eosinophils 0.3 10^3/uL (0-0.7); Absolute Monocytes 0.4 10^3/uL (0.1-0.6); Absolute Neutrophils 2.8 10^3/uL (1.4-6.5); Hematocrit 24.3 % (39.0-52.0); Hemoglobin 7.8 g/dL (13.0-18.0); Mean Corp Hgb Conc. 32.1 g/dL (33.0-37.0); Mean Corpuscular Hgb 28.1 pg (27.0-31.0); Mean Corpuscular Volume 87.4 fL (80.0-94.0); Mean Platelet Volume 9.6 fL (7.4-10.4); Nucleated Red Blood Cells % 0 % (-); Platelet Count 184 10^3/uL (130-400); Red Blood Cell Count 2.78 10^6/uL (4.70-6.10); Red Cell Dist. Width 14.4 % (11.5-14.5); White Blood Cell Count 4.5 10^3/uL (4.8-10.8)
[2024-07-18 06:28] LABS: Vancomycin Random 18.7 ug/ml
--- NOTE | 2024-07-18 06:33 | W.PN.HOSP.TC ---
Today's Communication/Plan
-
trial pureed diet with honey thick liquid
monitor off abx as per ID
Assessment / Plan
Assessment / Plan
Physical Exam
General: Well Developed, Well Nourished and No Apparent Distress
HEENT: Normocephalic, Moist mucous membranes.
Respiratory: Clear to Auscultation Bilaterally
Cardiac: S1/S2 and Regular Rhythm
GI: Soft, Non Tender, Non Distended and Normal Bowel Sounds
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
Skin: Warm. Dry.
Neuro: AOx3 conversant coherent
Psych: calm cooperative
Assessment/Plan
69-year-old male with a past medical history significant for atrial fibrillation on anticoagulation with Eliquis, CAD status PCI in 2023 on Brilinta, CHF-unknown type, insulin-dependent diabetes, hypertension, left hemiparesis s/p CVA, GERD, chronic
kidney disease stage 3, psychiatric disorder, recent significant decline in mental status for which she is currently at nursing/rehab facility and spouse reports forgetfulness but generally alert and oriented and able to carry on a conversation who
presented to the emergency department with fatigue and altered mental status. Patient has resided at [facility] since October 2023, they notified her today that he had a acute onset of change in mental status that was witnessed at dinner time when
patient was not verbally responding to staff/more confused and was having a difficult time holding water cup/weakness.
Patient was admitted to the hospital at the beginning of last month with anemia and weakness and was thought to have chronic hematuria with resultant mixed iron deficiency picture. He did receive 2 units of blood and his hemoglobin appeared to have
been stable since. Is supposed to have restarted the Eliquis after his cystoscopy on 10 June 2024. Patient unable to say whether he did get the cystoscopy or not. Outpatient records indicate that he had been restarted back on the Eliquis and
Brilinta. He is unable to say exactly why he was sent to the emergency department but he did endorse fatigue and more tired than usual. He also appeared more confused compared to baseline according to spouse. There is concern for chronic
left-sided weakness which appeared to be essentially at baseline. Patient was noted to have whispering voice which also had been present for approximately 6-8 months.
Neurological exam at the time of admission showed no focal deficits.
On admission, he was afebrile here with a temp of 98.1, blood pressure ranged from 80s to 90s systolic, pulse was 95 and he was satting 98% on room air. CBC showed white blood cell count of 16, hemoglobin was 9.3. Electrolytes were normal. BUN
was elevated at 50 creatinine 1.3.
ECG showed atrial flutter with a rate of 82. CT of the head was concerning with findings most likely representing encephalomalacia/old infarction in the left posterior parietal-occipital region greater than the right occipital lobe. Cannot entirely
exclude superimposed small acute/subacute nonhemorrhagic infarct in the left posterior parietal-occipital region.
Chest x-ray showed extremely low lung volumes, mild predominantly linear right basilar opacity suggesting subsegmental atelectasis.

#Hypotension -- RESOLVED
#Allergy to Penicillins
#Leukocytosis Likely Secondary to Bilateral Pneumonia (RT>LT) -- extensive right-sided pneumonia; left sided pneumonia has improved compared to months ago
#Suspected Aspiration Pneumonia and Community Acquired Pneumonia
#MRSA Positive
#Mild subcarinal and left hilar adenopathy -- probably reactive secondary to pneumonia.
-Initially admitted to ICU d/t hypotension but responded well to IVF, did not require pressors, subsequently downgraded to Tele
-Elevated Procal -- received empiric Vancomycin (MRSA positive) and Cefepime
-Overall clinically improved
-ID eval appreciated abx since completed, monitoring off
-Will need follow-up CT Chest in 4 to 6 months (or as determined by outpatient pulmonary)
-COVID and Influenza were negative
-Sputum culture was ordered -- but nothing collected or sent yet
-Blood cultures negative so far
#Severe pharyngeal dysphagia on VSE on 07/15/24
-Dobhoff tube placed complicated with clogging issues. Tube was since discontinued 07/17
-Repeat VSE 07/18 however noted improvement in swallow reduced aspiration risk pureed with moderate thick liquid (honey thick)
-Patient also expressed that he would not want dobhoff tube feeding again even if indicated (though he would be willing to consider PEG if necessary)
-trial pureed w/ honey thick liquid started
#Toxic Metabolic Encephalopathy Secondary to TIA/acute-subacute stroke versus infectious process
#Left Hemiparesis with history of CVA
-Likely from pneumonia and dehydration -- patient since improved
-CXR with extremely low lung volumes, mild predominantly linear right basilar opacity suggesting subsegmental atelectasis and/or scarring -- monitor oxygen saturation
-Head CT: No acute intracranial hemorrhage, encephalomalacia/old infarction in the left posterior parietal-occipital region greater than the right occipital lobe; cannot entirely exclude superimposed small acute/subacute nonhemorrhagic infarct in
the left posterior parietal-occipital region -- per neurology 4 strokes on patient's neuroimaging
-Concern is for possible subacute stroke in the setting of anticoagulation hold (previously held for GI bleed and hematuria) since discharge from hospital.
-Urine culture with no growth
-Neurology consult appreciated: no further stroke workup indicated, continue on Brilinta and Eliquis
#Right ventricular dilation and hypokinesis
-No PE on CT Chest
-Echo findings with LVEF 55-60% but RT ventricular dilation and hypokineses
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
#Hematuria on UA with moderate bacteria
#Recent history of hematuria
-Monitor hematuria and clots with routine bladder scan.
#History of Gastrointestinal Bleeding
#GERD
cont Protonix BID
#Hypertension
-Hold Losartan given hypotension
#CAD status PCI in 2023 on Brilinta
#Severe coronary arterial calcifications on CT Imaging
- Continue Atorvastatin BB
- Continue Brilinta and Eliquis
#HFpEF
- appears euvolemic at this time
-Daily weights, I's and O's
#Paroxysmal A-Fib / Flutter on outpatient Eliquis
- Continue Eliquis and ticagrelor
- cont BB
#CKD III ruled out
kidney function noted this hospitalization not consistent with CKDIII
#DM-II
-07/15/24 A1c 6.3 but not reliable with recent blood transfusions 06/2024
- sliding scale
- discontinue lantus
#Psychiatric Disorder - Unspecified
- continue Abilify and divalproex
Code status: Full code as per Patient
DVT prophylaxis: Eliquis
discussed with patient and patient's Sabnie
I spent a total of 45 minutes with the patient or on the floor. More than 50% of this time involved counseling and coordination of care.
Anticipated Discharge: 24 - 48 hours
Subjective/Interval History
-
Date of Service: July 18, 2024
no acute distress. resting comfortably in bed. Reports overall feeling well. AOx3 conversant coherent.
Objective Data
-
Labs:
Laboratory Results
07/18/24
05:34
WBC 4.5 L
Hgb 7.8 L
Hct 24.3 L
Plt Count 184
Sodium Pending
Potassium Pending
Chloride Pending
Carbon Dioxide Pending
BUN Pending
Creatinine Pending
Glucose Pending
Calcium Pending
Vital Signs:
Vital Signs
Temp Pulse Resp BP Pulse Ox
97.6 F 95 16 129/84 96
07/18/24 03:20 07/18/24 03:20 07/18/24 03:20 07/18/24 03:20 07/18/24 03:20
I&O
07/16/24 07/17/24 07/18/24
06:59 06:59 06:59
Intake Total 570 / 570 120 / 120
Output Total 1100 / 1100 1300 / 1300 1500 / 1500
Balance -530 / -530 -1300 / -1300 -1380 / -1380
[2024-07-18 06:43] LABS: Blood Urea Nitrogen 31 mg/dl (9-20); Calcium 8.6 mg/dl (8.4-10.2); Carbon Dioxide 25 mmol/L (22-30); Chloride 112 mmol/L (98-107); Estimated Creatinine Clearance 88 ml/min; Glucose 92 mg/dl (70-99); Magnesium 1.7 mg/dl (1.6-2.3); Phosphorus 3.5 mg/dl (2.5-4.5); Potassium 3.7 mmol/L (3.5-5.1); Sodium 142 mmol/L (135-145); eGFR > 60.00
[2024-07-18] MEDS: DEPAKENE TUBE (07:27)
[2024-07-18] MEDS: ELIQUIS TUBE (07:27)
[2024-07-18] MEDS: BRILINTA TUBE (07:27)
[2024-07-18] MEDS: FLOMAX TUBE (07:27)
[2024-07-18 07:30] VITALS: BP 125/78
[2024-07-18] MEDS: PROTONIX IV 40 MG IV ×2 (08:41→21:49)
[2024-07-18] MEDS: THIAMINE INJECTION 100 MG IV ×2 (08:41→21:49)
[2024-07-18] MEDS: NSS (PRESERVATIVE FREE) 10 ML IV ×3 (08:41→21:49)
[2024-07-18] MEDS: LAC HYDRIN, AM LACTIN LOTION 1 APPLIC TOPICAL ×3 (08:45→22:16)
--- NOTE | 2024-07-18 09:33 | PHA.VAN.FU ---
Vancomycin Assessment / Plan
- Assessment
Renal Function: Stable (1.0)
WBC's are: WNL
In the past 24 hrs, patient has been: Afebrile
Concomitant Antimicrobials: Metronidazole, Piperacillin/Tazobactam
- Assessment - Therapeutic Drug Monitoring
Random Level: 18.7 ~20hr after previous 1G dose
- Dosing Plan
Adjust Regimen to: Dose by level
Dosing by Level: Hold off on dosing today
Dosing Comments: Received 1G 07/18/24 0544
- Monitoring Plan
Random Level: 07/19/24 0600
- Follow Up
Pharmacy will continue to follow.
Vancomycin Follow UP
- -
Patient Age: 69
Patient Sex: Male
Vancomycin Day #: 4
Indication: Genito-Urinary Tract
Requesting Provider: Cat
Pertinent Antimicrobial Allergies:
Penicillin - Swelling
Sulfamethoxazole/Trimethoprim - Unknown Manifestation
Height / Weight:
Height 6 ft 4 in
Actual Weight 90.718 kg
Pertinent Past Medical History: T2DM, BKA
- Vital Signs / Lab Results
Temp Pulse Resp BP Pulse Ox
98.4 F 72 14 125/78 98
07/18/24 07:30 07/18/24 07:30 07/18/24 07:30 07/18/24 07:30 07/18/24 09:24
Lab Results - Hematology
07/16/24 07/17/24 07/18/24
04:34 07:22 05:34
WBC 6.5 4.6 L 4.5 L
Lab Results - Chemistry
07/15/24 07/16/24 07/17/24
12:36 04:34 07:22
BUN 55 H 47 H 38 H
Creatinine 1.3 1.2 1.1
Estimated Creat Clear 68 73 80
Albumin 2.5 L
07/18/24
05:34
BUN 31 H
Creatinine 1.0
Estimated Creat Clear 88
Albumin
Microbiology Results
07/15/24 09:02 Blood Culture - Preliminary
Blood/Venous No Growth in 72 hours- Final report to follow
07/15/24 08:30 Blood Culture - Preliminary
Blood/Venous No Growth in 72 hours- Final report to follow
07/15/24 08:30 MRSA Screen - Final
Nose Staph aureus MRSA
07/14/24 22:29 Urine Culture - Final
Urine NO GROWTH
Therapeutic Drug Monitoring
Random Vancomycin 18.7 ug/ml 07/18/24 05:34
[2024-07-18 12:01] LABS: Glucose - Point of Care 97 mg/dl (70-99)
--- NOTE | 2024-07-18 12:19 | PTOTSP ---
Videofluoroscopic swallow study
Mild oral, moderate-severe pharyngeal dysphagia. See patient care note for details.
When compared to last study 07/15/2024, patient no longer aspirating moderately thick and pureed consistencies which is an improvement. However, silent aspiration persists with thin and mildly thick liquids.
Patient indicated non-oral means would not be aligned with his goals of care. If patient and/or medical decision maker opt for PO diet understanding aspiration risks/complications, consider the following:
1. IDDSI Level 4 Puree, IDDSI Level 3 Moderately Thick Liquids
2. Strategies: full supervision, assist as needed, upright to 90 degrees, small sips/bites, slow rate, avoid straw
3. Oral care 3x daily
4. Medications: crushed in puree if medically cleared
5. Hold Aspiration Risk Hydration Protocol - given acute PNA
6. Dysphagia tx for education, instruction in compensations, trials of minced/moist solids at bedside to determine candidacy for diet advancement
[2024-07-18 12:53] VITALS: BMI 26.7
[2024-07-18 15:30] VITALS: BP 110/68
[2024-07-18 17:00] LABS: Glucose - Point of Care 141 mg/dl (70-99)
[2024-07-18] MEDS: LOPRESSOR 50 MG PO (17:44)
--- NOTE | 2024-07-18 17:47 | CON.ID ---
Consultation
-
Date/Time Consultation Requested: 07/18/2024 1251
Date/Time Consultation Performed: 07/18/2024 1730
Requesting Provider: Dr. King
Performing Provider: Dr. Del Rio
Reason for Consultation: PNA
Chief Complaint / Past History
History of Present Illness
Carson Gupta is a 69-year-old man being evaluated at the request of Dr. King in regards to pneumonia. History is obtained from chart review, along with patient interview.
The patient has a significant past medical history of CVA with residual left hemiparesis. He additionally has a history of a fibrillation, CAD/[place] and diabetes mellitus. He presented to [facility] on 07/14 from a local nursing facility for
evaluation of altered mental status. According to review of notes the patient had appeared more confused to the staff. Workup in the emergency room initially revealed an leukocytosis. Chest imaging revealed low lung volumes, but follow-up chest
CT revealed extensive pneumonia in the right lung, with concern for aspiration. The patient was started on empiric antibiotics. White count has improved since admission, and Infectious Diseases is now asked to comment on further antimicrobial
management.
At present, the patient reports he feels well. He denies any fevers. He does note an ongoing cough, but produces only scant sputum. He denies any shortness of breath.
Past History
Additional Past Medical History:
hypertension
ASCVD
Left Hemiparesis s/p CVA
GERD
Paroxysmal A-Fib / Flutter
CKD III
CHF
DM-II
Additional Past Surgical History:
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
A-Fib / Flutter Ablation
Appendectomy
ORIF LUE
Right Knee Arthroscopy
Allergy History:
Penicillins Allergy (Verified 07/14/24 21:01)
?Swelling; patient was told by his mother he had an allergy because she had one.
sulfamethoxazole [From Bactrim] Allergy (Verified 07/14/24 21:01)
Unknown
Medications Reviewed: Yes
Current Antibiotics:
Vanco
Cefepime
Flagyl
Social History
Tobacco: Non-Smoker
Alcohol: None
Drug: None
Personal:
Living: [facility]
Employment: Disabled
Family History
Family History: Not Pertinent
Review of Systems
Vital Signs
Temp Pulse Resp BP Pulse Ox
97.6 F 98 18 110/68 96
07/18/24 15:30 07/18/24 15:30 07/18/24 15:30 07/18/24 15:30 07/18/24 15:30
Physical Exam
Physical Exam
Constitutional: No Acute Distress, Comfortable, Chronically Ill and Non-toxic
Eyes: No Conjunctival Hemorrhage and Sclera Anicteric
Oral: No Thrush and No Ulcers
Cardiovascular: Irregular Rate and S1/S2; Negative S3/S4
Pulmonary: Coarse and Non Labored
Gastrointestinal: Soft, Non Tender, Non Distended, Normal Bowel Sounds, No Rebound and No Guarding
Genito-Urinary: Crump; Negative Turbid Urine or Hematuria
Extremities: Edema and Venous Insufficiency; Negative Cyanosis or Erythema
Musculoskeletal: Other (right BKA)
Skin: Warm and Dry
Neurological: Awake and Alert
Psychological: Calm
Lab / Diagnostic Study Results
07/18/24 05:34
07/18/24 05:34
Abs Immat Gran (auto) 0.0 10^3/uL (0-0.05) 07/18/24 05:34
Absolute Neuts (auto) 2.8 10^3/uL (1.4-6.5) 07/18/24 05:34
Absolute Lymphs (auto) 1.0 10^3/uL (1.2-3.4) L 07/18/24 05:34
Absolute Monos (auto) 0.4 10^3/uL (0.1-0.6) 07/18/24 05:34
Absolute Basos (auto) 0.0 10^3/uL (0-0.2) 07/18/24 05:34
Immature Gran % 0.7 % (0-0.5) H 07/18/24 05:34
Neutrophils % 61.3 % (42.2-75.2) 07/18/24 05:34
Lymphocytes % 23.1 % (20.5-51.1) 07/18/24 05:34
Monocytes % 8.0 % (1.7-9.3) 07/18/24 05:34
Eosinophils % 6.0 % (0-6) 07/18/24 05:34
Basophils % 0.9 % (0-2) 07/18/24 05:34
ESR 77 mm/hour (0-20) H 07/15/24 06:14
PT 19.1 Sec (11.4-14.6) H 07/15/24 06:14
INR 1.55 07/15/24 06:14
Lactic Acid 1.1 mmol/L (0.7-2.0) 07/15/24 02:25
Procalcitonin 0.84 ng/ml (0.0-0.25) H 07/17/24 07:22
Ur Squamous Epith Cells 11-15 /LPF (Few) 07/14/24 22:29
Microbiology Results
Micro:
07/15/24 09:02 Blood Culture - Preliminary
Blood/Venous No Growth in 72 hours- Final report to follow
07/15/24 08:30 Blood Culture - Preliminary
Blood/Venous No Growth in 72 hours- Final report to follow
07/15/24 08:30 MRSA Screen - Final
Nose Staph aureus MRSA
07/14/24 22:29 Urine Culture - Final
Urine NO GROWTH
07/15/24 01:09 Influenza Types A & B (SUKHI) - Final
Nasal Swab Negative for Influenza A & B, NAAT
Negative results must be combined with clinical observations
and patient history.
Nucleic Acid Amplification test (NAAT)performed on the
[employer] platform.
Imaging:
07/15/24 CT chest: No evidence for PE. Extensive pneumonia in right lung. Slightly improved when compared to prior CT dated 05/02/2024. Pneumonia in left lung is also improved since prior CT. Mild subcarinal and left hilar adenopathy. Likely
reactive.
Assessment / Plan
Ongoing aspiration / pharyngeal dysphagia
Pulmonary infiltrates/pneumonia
Leukocytosis; resolved
hypertension
ASCVD
Left Hemiparesis s/p CVA
GERD
Paroxysmal A-Fib / Flutter
CKD III
CHF
Recommendations:
At present, leukocytosis has resolved, as has left shift.
Blood cultures remain negative. Urine culture without growth.
Would favor discontinuing further antibiotics with close observation.
Monitor white count and temperature curve.
Strict aspiration precautions.
[2024-07-18] MEDS: DEPAKENE 125 MG PO (21:38)
[2024-07-18] MEDS: ABILIFY 10 MG PO (21:38)
[2024-07-18] MEDS: LIPITOR 40 MG PO (21:39)
[2024-07-18] MEDS: BRILINTA 90 MG PO (21:40)
[2024-07-18 21:42] LABS: Glucose - Point of Care 160 mg/dl (70-99)
[2024-07-18] MEDS: ELIQUIS 5 MG PO (21:42)
[2024-07-18] MEDS: STERILE WATER FOR INJECTION IV (21:50)
[2024-07-18] MEDS: LANTUS 0.02 UNITS SC (22:09)
[2024-07-19 00:03] VITALS: BP 123/77
[2024-07-19] MEDS: STERILE WATER FOR INJECTION IV ×4 (00:18→22:54)
[2024-07-19] MEDS: LOPRESSOR 50 MG PO ×5 (01:04→23:02)
[2024-07-19 05:54] LABS: % Basophils 1.2 % (0-2); % Eosinophils 5.7 % (0-6); % Immature Granulocytes 0.6 % (0-0.5); % Lymphocytes 25.1 % (20.5-51.1); % Monocytes 9.4 % (1.7-9.3); Absolute Basophils 0.1 10^3/uL (0-0.2); Absolute Eosinophils 0.3 10^3/uL (0-0.7); Absolute Lymphocytes 1.3 10^3/uL (1.2-3.4); Absolute Monocytes 0.5 10^3/uL (0.1-0.6); Hematocrit 24.7 % (39.0-52.0); Mean Corp Hgb Conc. 32.4 g/dL (33.0-37.0); Mean Corpuscular Hgb 28.6 pg (27.0-31.0); Mean Corpuscular Volume 88.2 fL (80.0-94.0); Mean Platelet Volume 9.7 fL (7.4-10.4); Nucleated Red Blood Cells % 0 % (-); Platelet Count 179 10^3/uL (130-400); Red Cell Dist. Width 14.2 % (11.5-14.5); White Blood Cell Count 5.1 10^3/uL (4.8-10.8)
--- NOTE | 2024-07-19 06:22 | W.PN.HOSP.TC ---
Today's Communication/Plan
-
diet advanced as per speech
glycemic control, start metformin
cont monitoring off abx as per ID
discharge planning back to [place]
Assessment / Plan
Assessment / Plan
Physical Exam
General: Well Developed, Well Nourished and No Apparent Distress
HEENT: Normocephalic, Moist mucous membranes.
Respiratory: Clear to Auscultation Bilaterally
Cardiac: S1/S2 and Regular Rhythm
GI: Soft, Non Tender, Non Distended and Normal Bowel Sounds
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
Skin: Warm. Dry.
Neuro: AOx3 conversant coherent
Psych: calm cooperative
Assessment/Plan
69-year-old male with a past medical history significant for atrial fibrillation on anticoagulation with Eliquis, CAD status PCI in 2023 on Brilinta, CHF-unknown type, insulin-dependent diabetes, hypertension, left hemiparesis s/p CVA, GERD, chronic
kidney disease stage 3, psychiatric disorder, recent significant decline in mental status for which she is currently at nursing/rehab facility and spouse reports forgetfulness but generally alert and oriented and able to carry on a conversation who
presented to the emergency department with fatigue and altered mental status. Patient has resided at [facility] since October 2023, they notified her today that he had a acute onset of change in mental status that was witnessed at dinner time when
patient was not verbally responding to staff/more confused and was having a difficult time holding water cup/weakness.
Patient was admitted to the hospital at the beginning of last month with anemia and weakness and was thought to have chronic hematuria with resultant mixed iron deficiency picture. He did receive 2 units of blood and his hemoglobin appeared to have
been stable since. Is supposed to have restarted the Eliquis after his cystoscopy on 10 June 2024. Patient unable to say whether he did get the cystoscopy or not. Outpatient records indicate that he had been restarted back on the Eliquis and
Brilinta. He is unable to say exactly why he was sent to the emergency department but he did endorse fatigue and more tired than usual. He also appeared more confused compared to baseline according to spouse. There is concern for chronic
left-sided weakness which appeared to be essentially at baseline. Patient was noted to have whispering voice which also had been present for approximately 6-8 months.
Neurological exam at the time of admission showed no focal deficits.
On admission, he was afebrile here with a temp of 98.1, blood pressure ranged from 80s to 90s systolic, pulse was 95 and he was satting 98% on room air. CBC showed white blood cell count of 16, hemoglobin was 9.3. Electrolytes were normal. BUN
was elevated at 50 creatinine 1.3.
ECG showed atrial flutter with a rate of 82. CT of the head was concerning with findings most likely representing encephalomalacia/old infarction in the left posterior parietal-occipital region greater than the right occipital lobe. Cannot entirely
exclude superimposed small acute/subacute nonhemorrhagic infarct in the left posterior parietal-occipital region.
Chest x-ray showed extremely low lung volumes, mild predominantly linear right basilar opacity suggesting subsegmental atelectasis.

#Hypotension -- RESOLVED
#Allergy to Penicillins
#Leukocytosis Likely Secondary to Bilateral Pneumonia (RT>LT) -- extensive right-sided pneumonia; left sided pneumonia has improved compared to months ago
#Suspected Aspiration Pneumonia and Community Acquired Pneumonia
#MRSA Positive
#Mild subcarinal and left hilar adenopathy -- probably reactive secondary to pneumonia.
-Initially admitted to ICU d/t hypotension but responded well to IVF, did not require pressors, subsequently downgraded to Tele
-Elevated Procal -- received empiric Vancomycin (MRSA positive) and Cefepime
-Overall clinically improved
-ID eval appreciated abx since completed, monitoring off
-Will need follow-up CT Chest in 4 to 6 months (or as determined by outpatient pulmonary)
-COVID and Influenza were negative
-Sputum culture was ordered -- but nothing collected or sent yet
-Blood cultures negative so far
-Acapella, mucinex
#Severe pharyngeal dysphagia on VSE on 07/15/24
-Dobhoff tube placed complicated with clogging issues. Tube was since discontinued 07/17
-Repeat VSE 07/18 however noted improvement in swallow reduced aspiration risk pureed with moderate thick liquid (honey thick)
-Patient also expressed that he would not want dobhoff tube feeding again even if indicated (though he would be willing to consider PEG if necessary)
-trial pureed w/ honey thick liquid started, continues to improve per speech eval, diet advanced to mince moist w/ honey thick liquids.
#Toxic Metabolic Encephalopathy Secondary to TIA/acute-subacute stroke versus infectious process
#Left Hemiparesis with history of CVA
-Likely from pneumonia and dehydration -- patient since improved, mental status baseline
-CXR with extremely low lung volumes, mild predominantly linear right basilar opacity suggesting subsegmental atelectasis and/or scarring -- monitor oxygen saturation
-Head CT: No acute intracranial hemorrhage, encephalomalacia/old infarction in the left posterior parietal-occipital region greater than the right occipital lobe; cannot entirely exclude superimposed small acute/subacute nonhemorrhagic infarct in
the left posterior parietal-occipital region -- per neurology 4 strokes on patient's neuroimaging
-Concern is for possible subacute stroke in the setting of anticoagulation hold (previously held for GI bleed and hematuria) since discharge from hospital.
-Urine culture with no growth
-Neurology consult appreciated: no further stroke workup indicated, continue on Brilinta and Eliquis
#Right ventricular dilation and hypokinesis
-No PE on CT Chest
-Echo findings with LVEF 55-60% but RT ventricular dilation and hypokineses
-Cardiology consult appreciated no evidence of right-sided heart failure on exam, no acute workup needed, should follow up with his [facility] netezza developer
#Non-ischemic myocardial injury
Troponin elevation on initial presentation 0.036 since trended down, chest pain free, likely non-ischemic myocardial injury
#Hematuria on UA with moderate bacteria
#Recent history of hematuria
-Monitor hematuria and clots with routine bladder scan.
#History of Gastrointestinal Bleeding
#GERD
cont Protonix BID
#Hypertension
-Hold Losartan given hypotension
#CAD status PCI in 2023 on Brilinta
#Severe coronary arterial calcifications on CT Imaging
- Continue Atorvastatin BB
- Continue Brilinta and Eliquis
#HFpEF
- appears euvolemic at this time
-Daily weights, I's and O's
#Paroxysmal A-Fib / Flutter on outpatient Eliquis
- Continue Eliquis and ticagrelor
- cont BB
#CKD III ruled out
kidney function noted this hospitalization not consistent with CKDIII
#DM-II
-07/15/24 A1c 6.3 but not reliable with recent blood transfusions 06/2024
- sliding scale
- discontinued lantus
-Metformin started
#Psychiatric Disorder - Unspecified
- continue Abilify and divalproex
#Moderate Protein Calorie Malnutrition of Chronic Illness
Code status: Full code
DVT prophylaxis: Eliquis
I spent a total of 45 minutes with the patient or on the floor. More than 50% of this time involved counseling and coordination of care.
Anticipated Discharge: 24 - 48 hours
Subjective/Interval History
-
Date of Service: July 19, 2024
reports chest congestion difficulty clearing sputum. Otherwise no acute distress, appears comfortable at this time. Tolerating diet.
Objective Data
-
Labs:
Laboratory Results
07/19/24
05:35
WBC 5.1
Hgb 8.0 L
Hct 24.7 L
Plt Count 179
Sodium Pending
Potassium Pending
Chloride Pending
Carbon Dioxide Pending
BUN Pending
Creatinine Pending
Glucose Pending
Calcium Pending
Vital Signs:
Vital Signs
Temp Pulse Resp BP Pulse Ox
98.4 F 83 16 109/63 95
07/19/24 00:03 07/19/24 05:36 07/19/24 00:03 07/19/24 05:36 07/19/24 00:03
I&O
07/17/24 07/18/24 07/19/24
06:59 06:59 06:59
Intake Total 120 / 120 480 / 480
Output Total 1300 / 1300 1500 / 1500 1650 / 1650
Balance -1300 / -1300 -1380 / -1380 -1170 / -1170
[2024-07-19 06:28] LABS: Blood Urea Nitrogen 29 mg/dl (9-20); Calcium 8.4 mg/dl (8.4-10.2); Carbon Dioxide 25 mmol/L (22-30); Chloride 111 mmol/L (98-107); Estimated Creatinine Clearance 80 ml/min; Glucose 198 mg/dl (70-99); Magnesium 1.6 mg/dl (1.6-2.3); Phosphorus 3.2 mg/dl (2.5-4.5); Potassium 3.9 mmol/L (3.5-5.1); Sodium 143 mmol/L (135-145); eGFR > 60.00
--- NOTE | 2024-07-19 06:58 | PN.CDI ---
CDI
- -
CDI:
Physician Documentation Request
Admit Date: 07/15/24 00:42
Dear Doctor Christine,
Please review the following and provide your response in the progress notes.
Clinical Indicators:
Knock Up Assembler, 07/18
#CBW: 200 lbs BMI: 24.3 normal (07/15); 220 lbs 3.869 oz BMI 26.8 overweight range (07/15) #...weight previous admission listed as 241 lbs (3/)
#...reflective of a 21 lb (9%) weight loss in 1 month significant.
#...weight loss of > 5% in 1 month and < 75% estimate needs in 1 month
#...pt meets AND/ASPEN criteria for moderate protein calorie malnutrition of chronic illness.
Based on the above information and your assessment, which of the following most accurately represents the patient's nutritional status?
Moderate Protein Calorie Malnutrition of Chronic Illness
Other (please specify)
[facility] Criteria (ACP Hospitalist 2017)
2 or more criteria must be present for either
non severe or severe malnutrition
Note that the criteria differs related to the
presence of an acute or chronic illness
Chronic Illness
Energy Intake Non Severe: <75% for >1 month
Severe: <75% for >1 month
Weight Loss Non Severe: 5% over 1 month
7.5% over 3 months
10% over 6 months
20% over 1 year
Severe: >5% over 1 month
>7.5% over 3 months
>10% over 6 months
>20% over 1 year
Body Fat Non Severe: Mild Loss
Severe: Severe Loss
Muscle Mass Non Severe: Mild Loss
Severe: Severe Loss
Use of terms such as suspected, likely, concern for, or probable (associated with a specific diagnosis that is being evaluated, monitored, or treated as if it exists) are acceptable and can be coded in the inpatient setting, when documented at the
time of discharge.
Thank you,
Florence Sifuentes RN BSN CCDS
CDI Specialist
Please contact via tiger text
Please use your independent medical judgment in providing your response.
--- NOTE | 2024-07-19 07:09 | PN.CDI ---
CDI
- -
CDI:
Physician Documentation Request
Admit Date: 07/15/24 00:42
Dear Doctor Christine,
Please review the following and provide your response in the progress notes.
Clinical Indicators:
Laboratory Tests
07/15/24
06:14
Troponin I 0.036 H*
Based on the above and your clinical assessment, please clarify the appropriate diagnosis, if significant, that supports the above abnormalities and additional evaluation, monitoring and/or treatment rendered:
Non-ischemic myocardial injury
Abnormal lab value, clinically insignificant
Other(please specify)
Use of terms such as suspected, likely, concern for, or probable (associated with a specific diagnosis that is being evaluated, monitored, or treated as if it exists) are acceptable and can be coded in the inpatient setting, when documented at the
time of discharge.
Thank you,
Florence Sifuentes RN BSN CCDS
CDI Specialist
Please contact via tiger text
Please use your independent medical judgment in providing your response.
[2024-07-19 07:41] VITALS: BP 119/77
[2024-07-19 07:49] LABS: Glucose - Point of Care 195 mg/dl (70-99)
[2024-07-19 09:20] LABS: Glucose - Point of Care 174 mg/dl (70-99)
[2024-07-19] MEDS: NOVOLOG FLEXPEN-LOW RESISTANCE 1 UNITS SC ×2 (09:24→17:23)
[2024-07-19] MEDS: ELIQUIS 5 MG PO ×2 (09:25→21:43)
[2024-07-19] MEDS: FLOMAX 0.4 MG PO (09:25)
[2024-07-19] MEDS: BRILINTA 90 MG PO ×2 (09:25→21:41)
[2024-07-19] MEDS: FERROUS SULFATE ORAL LIQUID 300 MG PO (09:26)
[2024-07-19] MEDS: DEPAKENE 125 MG PO ×2 (09:26→21:42)
[2024-07-19] MEDS: PROTONIX IV 40 MG IV ×2 (09:27→21:41)
[2024-07-19] MEDS: THIAMINE INJECTION 100 MG IV ×2 (09:27→21:42)
[2024-07-19] MEDS: NSS (PRESERVATIVE FREE) 10 ML IV ×2 (09:27→21:41)
[2024-07-19] MEDS: LAC HYDRIN, AM LACTIN LOTION 1 APPLIC TOPICAL ×3 (09:28→21:44)
--- NOTE | 2024-07-19 10:30 | CM ---
CM attempted to speak with patient; he was asleep in bed; IMM reviewed with pt's via telephone; verbal agreement to IMM and she agreed with return to [facility].
Dx: change in MS, TIA/CVA
Resides at [facility]
Referral entered in [facility], notified [facility] liaison
PCP: Dr. Lukasz Gant
Pharmacy: [facility]
PLAN: Return to [facility] when medically stable
Report #: [phone]
Fax #: [phone]
--- NOTE | 2024-07-19 11:22 | RESPNOTE ---
Respiratory: patient declined Vest therapy. Instructed patient on use of Acapella/PEP therapy, tolerated well. No cough. Lungs CTA.
[2024-07-19 11:49] LABS: Glucose - Point of Care 220 mg/dl (70-99)
[2024-07-19] MEDS: NOVOLOG FLEXPEN-LOW RESISTANCE 2 UNITS SC (12:53)
--- NOTE | 2024-07-19 13:35 | W.PN.ID1 ---
Date of Service
Date of Service: July 19, 2024
Today's Communication
Observe off antibiotics. See below�
Assessment / Plan
Ongoing aspiration / pharyngeal dysphagia
Pulmonary infiltrates/pneumonia
Leukocytosis; resolved
hypertension
ASCVD
Left Hemiparesis s/p CVA
GERD
Paroxysmal A-Fib / Flutter
CKD III
CHF
Recommendations:
At present, leukocytosis has resolved, as has left shift.
Blood cultures remain negative. Urine culture without growth.
Observe off antibiotics with close clinical monitoring.
Follow white count and temperature curve.
Strict aspiration precautions.
����������������������������������������������������������
Chief Complaint
-: Pneumonia
Subjective / Review of Systems
Review of Systems: No Fever and No Chills
Vital Signs / Physical Exam
Vital Signs
Vital Signs
Temp Pulse Resp BP Pulse Ox
98.3 F 73 14 123/69 98
07/19/24 07:41 07/19/24 12:52 07/19/24 07:41 07/19/24 12:52 07/19/24 11:07
Physical Exam
Constitutional: Comfortable, Chronically Ill and Non-toxic
Cardiovascular: S1/S2; Negative S3/S4
Pulmonary: Non Labored
Gastrointestinal: Soft, Non Tender and Non Distended
Extremities: Edema and Venous Insufficiency
Musculoskeletal: Other (right BKA)
Psychological: Calm
Objective Data
Lab Data
Lab Results
07/19/24 05:35
07/19/24 05:35
ESR 77 mm/hour (0-20) H 07/15/24 06:14
PT 19.1 Sec (11.4-14.6) H 07/15/24 06:14
INR 1.55 07/15/24 06:14
APTT 38.6 Sec (23.4-35.0) H 07/15/24 06:14
Estimated Creat Clear 80 ml/min 07/19/24 05:35
Lactic Acid 1.1 mmol/L (0.7-2.0) 07/15/24 02:25
Total Bilirubin 0.5 mg/dl (0.2-1.3) 07/15/24 12:36
AST 17 U/L (17-59) 07/15/24 12:36
ALT 15 U/L (0-50) 07/15/24 12:36
Alkaline Phosphatase 97 U/L (38-126) 07/15/24 12:36
Most recent labs reviewed.
Micro Results:
07/15/24 09:02 Blood Culture - Preliminary
Blood/Venous No Growth in 4 days- Final report to follow
07/15/24 08:30 Blood Culture - Preliminary
Blood/Venous No Growth in 4 days- Final report to follow
07/15/24 08:30 MRSA Screen - Final
Nose Staph aureus MRSA
07/14/24 22:29 Urine Culture - Final
Urine NO GROWTH
07/15/24 01:09 Influenza Types A & B (SUKHI) - Final
Nasal Swab Negative for Influenza A & B, NAAT
Negative results must be combined with clinical observations
and patient history.
Nucleic Acid Amplification test (NAAT)performed on the
[employer] platform.
Imaging:
07/15/24 CT chest: No evidence for PE. Extensive pneumonia in right lung. Slightly improved when compared to prior CT dated 05/02/2024. Pneumonia in left lung is also improved since prior CT. Mild subcarinal and left hilar adenopathy; likely
reactive.
CT Scan: Image Reviewed and Report Reviewed
[2024-07-19 15:19] VITALS: BP 109/63
[2024-07-19 16:24] LABS: Glucose - Point of Care 188 mg/dl (70-99)
--- NOTE | 2024-07-19 16:26 | PTOTSP ---
Dysphagia Therapy
Impression: WFL-mild oral, moderate-severe pharyngeal dysphagia.
Recommend:
1. IDDSI Level 5 Minced/Moist, IDDSI Level 3 Moderately Thick Liquids
2. Strategies: full supervision, assist as needed, upright to 90 degrees, small sips/bites, slow rate, avoid straw
3. Oral care 3x daily
4. Medications: crushed in puree if medically cleared
5. Dysphagia tx for education, instruction in compensations, trials of advanced solids at bedside to determine candidacy for solid diet advancement, and determine timing of repeat video swallow study (required to r/o silent aspiration w/ thin,
mildly thick)
[2024-07-19] MEDS: GLUCOPHAGE 500 MG PO (17:23)
[2024-07-19] MEDS: ABILIFY 10 MG PO (21:41)
[2024-07-19] MEDS: LIPITOR 40 MG PO (21:44)
[2024-07-19 23:00] VITALS: BP 119/70
[2024-07-20 06:00] VITALS: BMI 27.0
[2024-07-20] MEDS: LOPRESSOR 50 MG PO ×4 (06:26→23:09)
[2024-07-20 06:41] LABS: Hematocrit 25.4 % (39.0-52.0); Hemoglobin 8.2 g/dL (13.0-18.0); Mean Corp Hgb Conc. 32.3 g/dL (33.0-37.0); Mean Corpuscular Hgb 28.4 pg (27.0-31.0); Mean Corpuscular Volume 87.9 fL (80.0-94.0); Mean Platelet Volume 9.7 fL (7.4-10.4); Platelet Count 187 10^3/uL (130-400); Red Blood Cell Count 2.89 10^6/uL (4.70-6.10); Red Cell Dist. Width 14.2 % (11.5-14.5); White Blood Cell Count 7.4 10^3/uL (4.8-10.8)
--- NOTE | 2024-07-20 06:49 | W.PN.HOSP.TC ---
Today's Communication/Plan
-
mucinex dose increased
patient agreeable to VEST therapy, re-ordered
Discharge planning
Assessment / Plan
Assessment / Plan
Physical Exam
General: Well Developed, Well Nourished and No Apparent Distress
HEENT: Normocephalic, Moist mucous membranes.
Respiratory: Clear to Auscultation Bilaterally
Cardiac: S1/S2 and Regular Rhythm
GI: Soft, Non Tender, Non Distended and Normal Bowel Sounds
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
Skin: Warm. Dry.
Neuro: AOx3 conversant coherent
Psych: calm cooperative
Assessment/Plan
69-year-old male with a past medical history significant for atrial fibrillation on anticoagulation with Eliquis, CAD status PCI in 2023 on Brilinta, CHF-unknown type, insulin-dependent diabetes, hypertension, left hemiparesis s/p CVA, GERD, chronic
kidney disease stage 3, psychiatric disorder, recent significant decline in mental status for which she is currently at nursing/rehab facility and spouse reports forgetfulness but generally alert and oriented and able to carry on a conversation who
presented to the emergency department with fatigue and altered mental status. Patient has resided at [facility] since October 2023, they notified her today that he had a acute onset of change in mental status that was witnessed at dinner time when
patient was not verbally responding to staff/more confused and was having a difficult time holding water cup/weakness.
Patient was admitted to the hospital at the beginning of last month with anemia and weakness and was thought to have chronic hematuria with resultant mixed iron deficiency picture. He did receive 2 units of blood and his hemoglobin appeared to have
been stable since. Is supposed to have restarted the Eliquis after his cystoscopy on 10 June 2024. Patient unable to say whether he did get the cystoscopy or not. Outpatient records indicate that he had been restarted back on the Eliquis and
Brilinta. He is unable to say exactly why he was sent to the emergency department but he did endorse fatigue and more tired than usual. He also appeared more confused compared to baseline according to spouse. There is concern for chronic
left-sided weakness which appeared to be essentially at baseline. Patient was noted to have whispering voice which also had been present for approximately 6-8 months.
Neurological exam at the time of admission showed no focal deficits.
On admission, he was afebrile here with a temp of 98.1, blood pressure ranged from 80s to 90s systolic, pulse was 95 and he was satting 98% on room air. CBC showed white blood cell count of 16, hemoglobin was 9.3. Electrolytes were normal. BUN
was elevated at 50 creatinine 1.3.
ECG showed atrial flutter with a rate of 82. CT of the head was concerning with findings most likely representing encephalomalacia/old infarction in the left posterior parietal-occipital region greater than the right occipital lobe. Cannot entirely
exclude superimposed small acute/subacute nonhemorrhagic infarct in the left posterior parietal-occipital region.
Chest x-ray showed extremely low lung volumes, mild predominantly linear right basilar opacity suggesting subsegmental atelectasis.

#Hypotension -- RESOLVED
#Allergy to Penicillins
#Leukocytosis Likely Secondary to Bilateral Pneumonia (RT>LT) -- extensive right-sided pneumonia; left sided pneumonia has improved compared to months ago
#Suspected Aspiration Pneumonia and Community Acquired Pneumonia
#MRSA Positive
#Mild subcarinal and left hilar adenopathy -- probably reactive secondary to pneumonia.
-Initially admitted to ICU d/t hypotension but responded well to IVF, did not require pressors, subsequently downgraded to Tele
-Elevated Procal -- received empiric Vancomycin (MRSA positive) and Cefepime
-Overall clinically improved
-ID eval appreciated abx since completed, monitoring off
-Will need follow-up CT Chest in 4 to 6 months (or as determined by outpatient pulmonary)
-COVID and Influenza were negative
-Sputum culture was ordered -- but nothing collected or sent yet
-Blood cultures negative so far
-Acapella, mucinex, VEST therapy
#Severe pharyngeal dysphagia on VSE on 07/15/24
-Dobhoff tube placed complicated with clogging issues. Tube was since discontinued 07/17
-Repeat VSE 07/18 however noted improvement in swallow reduced aspiration risk pureed with moderate thick liquid (honey thick)
-Patient also expressed that he would not want dobhoff tube feeding again even if indicated (though he would be willing to consider PEG if necessary)
-trial pureed w/ honey thick liquid started, continues to improve per speech eval, diet advanced to mince moist w/ honey thick liquids.
#Toxic Metabolic Encephalopathy Secondary to TIA/acute-subacute stroke versus infectious process
#Left Hemiparesis with history of CVA
-Likely from pneumonia and dehydration -- patient since improved, mental status baseline
-CXR with extremely low lung volumes, mild predominantly linear right basilar opacity suggesting subsegmental atelectasis and/or scarring -- monitor oxygen saturation
-Head CT: No acute intracranial hemorrhage, encephalomalacia/old infarction in the left posterior parietal-occipital region greater than the right occipital lobe; cannot entirely exclude superimposed small acute/subacute nonhemorrhagic infarct in
the left posterior parietal-occipital region -- per neurology 4 strokes on patient's neuroimaging
-Concern is for possible subacute stroke in the setting of anticoagulation hold (previously held for GI bleed and hematuria) since discharge from hospital.
-Urine culture with no growth
-Neurology consult appreciated: no further stroke workup indicated, continue on Brilinta and Eliquis
#Right ventricular dilation and hypokinesis
-No PE on CT Chest
-Echo findings with LVEF 55-60% but RT ventricular dilation and hypokineses
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
#Non-ischemic myocardial injury
Troponin elevation on initial presentation 0.036 since trended down, chest pain free, likely non-ischemic myocardial injury
#Hematuria on UA with moderate bacteria
#Recent history of hematuria
-Monitor hematuria and clots with routine bladder scan.
#History of Gastrointestinal Bleeding
#GERD
cont Protonix BID
#Hypertension
-Hold Losartan given hypotension
#CAD status PCI in 2023 on Brilinta
#Severe coronary arterial calcifications on CT Imaging
- Continue Atorvastatin BB
- Continue Brilinta and Eliquis
#HFpEF
- appears euvolemic at this time
-Daily weights, I's and O's
#Paroxysmal A-Fib / Flutter on outpatient Eliquis
- Continue Eliquis and ticagrelor
- cont BB
#CKD III ruled out
kidney function noted this hospitalization not consistent with CKDIII
#DM-II
-07/15/24 A1c 6.3 but not reliable with recent blood transfusions 06/2024
- sliding scale
- discontinued lantus
-Metformin started
#Psychiatric Disorder - Unspecified
- continue Abilify and divalproex
#Moderate Protein Calorie Malnutrition of Chronic Illness
Code status: Full code
DVT prophylaxis: Eliquis
I spent a total of 45 minutes with the patient or on the floor. More than 50% of this time involved counseling and coordination of care.
Anticipated Discharge: Within 24 hours
Subjective/Interval History
-
Date of Service: July 20, 2024
no acute distress appears comfortable. chest congestion persists endorses difficulty bringing up sputum
Objective Data
-
Labs:
Laboratory Results
07/20/24
05:52
WBC 7.4
Hgb 8.2 L
Hct 25.4 L
Plt Count 187
Sodium Pending
Potassium Pending
Chloride Pending
Carbon Dioxide Pending
BUN Pending
Creatinine Pending
Glucose Pending
Calcium Pending
Vital Signs:
Vital Signs
Temp Pulse Resp BP Pulse Ox
98.1 F 95 18 109/70 97
07/19/24 23:00 07/20/24 06:26 07/19/24 23:00 07/20/24 06:26 07/19/24 23:00
I&O
07/18/24 07/19/24 07/20/24
06:59 06:59 06:59
Intake Total 120 / 120 480 / 480 660 / 660
Output Total 1500 / 1500 1650 / 1650 650 / 650
Balance -1380 / -1380 -1170 / -1170
[2024-07-20 07:05] VITALS: BP 109/74
--- NOTE | 2024-07-20 07:34 | W.PN.ID1 ---
Date of Service
Date of Service: July 20, 2024
Today's Communication
Observe off abx.
Assessment / Plan
Ongoing aspiration / pharyngeal dysphagia
Pulmonary infiltrates/pneumonia
Leukocytosis; resolved
hypertension
ASCVD
Left Hemiparesis s/p CVA
GERD
Paroxysmal A-Fib / Flutter
CKD III
CHF
Recommendations:
WBC remains stable.
Blood cultures remain negative. Urine culture without growth.
Continue to observe off antibiotics with close clinical monitoring.
Follow white count and temperature curve.
Strict aspiration precautions.
����������������������������������������������������������
Chief Complaint
-: Pneumonia
Subjective / Review of Systems
Seen / examined. No issues overnight. No SOB.
Review of Systems: No Fever, No Chills, Cough, No Sputum Production and No Chest Pain
Vital Signs / Physical Exam
Vital Signs
Vital Signs
Temp Pulse Resp BP Pulse Ox
98.1 F 95 18 109/70 97
07/19/24 23:00 07/20/24 06:26 07/19/24 23:00 07/20/24 06:26 07/19/24 23:00
Physical Exam
Constitutional: No Acute Distress, Comfortable and Non-toxic
Eyes: Sclera Anicteric
Cardiovascular: S1/S2; Negative S3/S4
Pulmonary: Non Labored and Other (decreased BS in bases.)
Gastrointestinal: Soft, Non Tender and Non Distended
Extremities: Edema and Venous Insufficiency (LLE)
Musculoskeletal: Other (right BKA)
Neurological: Awake and Alert
Psychological: Calm
Objective Data
Lab Data
Lab Results
07/20/24 05:52
ESR 77 mm/hour (0-20) H 07/15/24 06:14
PT 19.1 Sec (11.4-14.6) H 07/15/24 06:14
INR 1.55 07/15/24 06:14
APTT 38.6 Sec (23.4-35.0) H 07/15/24 06:14
Estimated Creat Clear 80 ml/min 07/19/24 05:35
Lactic Acid 1.1 mmol/L (0.7-2.0) 07/15/24 02:25
Total Bilirubin 0.5 mg/dl (0.2-1.3) 07/15/24 12:36
AST 17 U/L (17-59) 07/15/24 12:36
ALT 15 U/L (0-50) 07/15/24 12:36
Alkaline Phosphatase 97 U/L (38-126) 07/15/24 12:36
Most recent labs reviewed.
Micro Results:
07/15/24 09:02 Blood Culture - Preliminary
Blood/Venous No Growth in 4 days- Final report to follow
07/15/24 08:30 Blood Culture - Preliminary
Blood/Venous No Growth in 4 days- Final report to follow
07/15/24 08:30 MRSA Screen - Final
Nose Staph aureus MRSA
07/14/24 22:29 Urine Culture - Final
Urine NO GROWTH
07/15/24 01:09 Influenza Types A & B (SUKHI) - Final
Nasal Swab Negative for Influenza A & B, NAAT
Negative results must be combined with clinical observations
and patient history.
Nucleic Acid Amplification test (NAAT)performed on the
[employer] platform.
Imaging:
07/15/24 CT chest: No evidence for PE. Extensive pneumonia in right lung. Slightly improved when compared to prior CT dated 05/02/2024. Pneumonia in left lung is also improved since prior CT. Mild subcarinal and left hilar adenopathy; likely
reactive.
07/14/2024 CXR : Extremely low lung volumes. Mild predominantly linear right basilar opacity suggesting subsegmental atelectasis and/or scarring.
Chest X-Ray: Image Reviewed and Report Reviewed
CT Scan: Image Reviewed and Report Reviewed
[2024-07-20 08:11] LABS: Blood Urea Nitrogen 29 mg/dl (9-20); Calcium 8.3 mg/dl (8.4-10.2); Carbon Dioxide 24 mmol/L (22-30); Chloride 111 mmol/L (98-107); Estimated Creatinine Clearance 73 ml/min; Glucose 176 mg/dl (70-99); Magnesium 1.7 mg/dl (1.6-2.3); Phosphorus 2.6 mg/dl (2.5-4.5); Potassium 3.9 mmol/L (3.5-5.1); Sodium 142 mmol/L (135-145); eGFR > 60.00
[2024-07-20] MEDS: MUCINEX 600 MG PO (08:36)
[2024-07-20] MEDS: GLUCOPHAGE 500 MG PO ×2 (08:36→17:24)
[2024-07-20] MEDS: ELIQUIS 5 MG PO ×2 (08:36→20:15)
[2024-07-20] MEDS: THIAMINE INJECTION 100 MG IV ×2 (08:37→20:16)
[2024-07-20] MEDS: FLOMAX 0.4 MG PO (08:37)
[2024-07-20] MEDS: BRILINTA 90 MG PO ×2 (08:37→20:16)
[2024-07-20] MEDS: FERROUS SULFATE ORAL LIQUID 300 MG PO (08:40)
[2024-07-20] MEDS: DEPAKENE 125 MG PO ×2 (08:40→20:13)
[2024-07-20] MEDS: PROTONIX IV 40 MG IV ×2 (08:41→20:17)
[2024-07-20] MEDS: LAC HYDRIN, AM LACTIN LOTION 1 APPLIC TOPICAL ×3 (08:44→21:38)
[2024-07-20 08:56] LABS: Glucose - Point of Care 182 mg/dl (70-99)
[2024-07-20] MEDS: NOVOLOG FLEXPEN-LOW RESISTANCE 1 UNITS SC ×3 (09:32→17:23)
[2024-07-20 12:37] LABS: Glucose - Point of Care 199 mg/dl (70-99)
[2024-07-20] MEDS: STERILE WATER FOR INJECTION IV ×3 (12:46→23:15)
[2024-07-20 15:05] VITALS: BP 120/75
--- NOTE | 2024-07-20 15:13 | RESPNOTE ---
Respiratory: CPT started via Vest patient agreeable and educated to usage.
[2024-07-20 17:20] LABS: Glucose - Point of Care 183 mg/dl (70-99)
[2024-07-20] MEDS: MUCINEX 1200 MG PO (20:16)
[2024-07-20] MEDS: NSS (PRESERVATIVE FREE) 10 ML IV (20:18)
[2024-07-20 21:34] LABS: Glucose - Point of Care 184 mg/dl (70-99)
[2024-07-20] MEDS: LIPITOR 40 MG PO (21:38)
[2024-07-20] MEDS: ABILIFY 10 MG PO (21:38)
[2024-07-20 23:00] VITALS: BP 109/64
[2024-07-21] MEDS: LOPRESSOR PO (05:45)
[2024-07-21 06:29] LABS: Hematocrit 26.6 % (39.0-52.0); Hemoglobin 8.5 g/dL (13.0-18.0); Mean Corpuscular Hgb 28.5 pg (27.0-31.0); Mean Corpuscular Volume 89.3 fL (80.0-94.0); Platelet Count 183 10^3/uL (130-400); Red Blood Cell Count 2.98 10^6/uL (4.70-6.10); Red Cell Dist. Width 14.3 % (11.5-14.5); White Blood Cell Count 7.8 10^3/uL (4.8-10.8)
--- NOTE | 2024-07-21 06:47 | W.PN.HOSP.TC ---
Today's Communication/Plan
-
start farxiga
continue glycemic control
mucinex, acapella, VEST
aspiration precautions
Assessment / Plan
Assessment / Plan
Physical Exam
General: Well Developed, Well Nourished and No Apparent Distress
HEENT: Normocephalic, Moist mucous membranes.
Respiratory: Clear to Auscultation Bilaterally
Cardiac: S1/S2 and Regular Rhythm
GI: Soft, Non Tender, Non Distended and Normal Bowel Sounds
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
Skin: Warm. Dry.
Neuro: AOx3 conversant coherent
Psych: calm cooperative
Assessment/Plan
69-year-old male with a past medical history significant for atrial fibrillation on anticoagulation with Eliquis, CAD status PCI in 2023 on Brilinta, CHF-unknown type, insulin-dependent diabetes, hypertension, left hemiparesis s/p CVA, GERD, chronic
kidney disease stage 3, psychiatric disorder, recent significant decline in mental status for which she is currently at nursing/rehab facility and spouse reports forgetfulness but generally alert and oriented and able to carry on a conversation who
presented to the emergency department with fatigue and altered mental status. Patient has resided at [facility] since October 2023, they notified her today that he had a acute onset of change in mental status that was witnessed at dinner time when
patient was not verbally responding to staff/more confused and was having a difficult time holding water cup/weakness.
Patient was admitted to the hospital at the beginning of last month with anemia and weakness and was thought to have chronic hematuria with resultant mixed iron deficiency picture. He did receive 2 units of blood and his hemoglobin appeared to have
been stable since. Is supposed to have restarted the Eliquis after his cystoscopy on 10 June 2024. Patient unable to say whether he did get the cystoscopy or not. Outpatient records indicate that he had been restarted back on the Eliquis and
Brilinta. He is unable to say exactly why he was sent to the emergency department but he did endorse fatigue and more tired than usual. He also appeared more confused compared to baseline according to spouse. There is concern for chronic
left-sided weakness which appeared to be essentially at baseline. Patient was noted to have whispering voice which also had been present for approximately 6-8 months.
Neurological exam at the time of admission showed no focal deficits.
On admission, he was afebrile here with a temp of 98.1, blood pressure ranged from 80s to 90s systolic, pulse was 95 and he was satting 98% on room air. CBC showed white blood cell count of 16, hemoglobin was 9.3. Electrolytes were normal. BUN
was elevated at 50 creatinine 1.3.
ECG showed atrial flutter with a rate of 82. CT of the head was concerning with findings most likely representing encephalomalacia/old infarction in the left posterior parietal-occipital region greater than the right occipital lobe. Cannot entirely
exclude superimposed small acute/subacute nonhemorrhagic infarct in the left posterior parietal-occipital region.
Chest x-ray showed extremely low lung volumes, mild predominantly linear right basilar opacity suggesting subsegmental atelectasis.

#Hypotension -- RESOLVED
#Allergy to Penicillins
#Leukocytosis Likely Secondary to Bilateral Pneumonia (RT>LT) -- extensive right-sided pneumonia; left sided pneumonia has improved compared to months ago
#Suspected Aspiration Pneumonia and Community Acquired Pneumonia
#MRSA Positive
#Mild subcarinal and left hilar adenopathy -- probably reactive secondary to pneumonia.
-Initially admitted to ICU d/t hypotension but responded well to IVF, did not require pressors, subsequently downgraded to Tele
-Elevated Procal -- received empiric Vancomycin (MRSA positive) and Cefepime
-Overall clinically improved
-ID eval appreciated abx since completed, monitoring off
-Will need follow-up CT Chest in 4 to 6 months (or as determined by outpatient pulmonary)
-COVID and Influenza were negative
-Sputum culture was ordered -- but nothing collected or sent yet
-Blood cultures negative so far
-Acapella, mucinex, VEST therapy
#Severe pharyngeal dysphagia on VSE on 07/15/24
-Dobhoff tube placed complicated with clogging issues. Tube was since discontinued 07/17
-Repeat VSE 07/18 however noted improvement in swallow reduced aspiration risk pureed with moderate thick liquid (honey thick)
-Patient also expressed that he would not want dobhoff tube feeding again even if indicated (though he would be willing to consider PEG if necessary)
-trial pureed w/ honey thick liquid started, continues to improve per speech eval, diet advanced to mince moist w/ honey thick liquids.
#Toxic Metabolic Encephalopathy Secondary to TIA/acute-subacute stroke versus infectious process
#Left Hemiparesis with history of CVA
-Likely from pneumonia and dehydration -- patient since improved, mental status baseline
-CXR with extremely low lung volumes, mild predominantly linear right basilar opacity suggesting subsegmental atelectasis and/or scarring -- monitor oxygen saturation
-Head CT: No acute intracranial hemorrhage, encephalomalacia/old infarction in the left posterior parietal-occipital region greater than the right occipital lobe; cannot entirely exclude superimposed small acute/subacute nonhemorrhagic infarct in
the left posterior parietal-occipital region -- per neurology 4 strokes on patient's neuroimaging
-Concern is for possible subacute stroke in the setting of anticoagulation hold (previously held for GI bleed and hematuria) since discharge from hospital.
-Urine culture with no growth
-Neurology consult appreciated: no further stroke workup indicated, continue on Brilinta and Eliquis
#Right ventricular dilation and hypokinesis
-No PE on CT Chest
-Echo findings with LVEF 55-60% but RT ventricular dilation and hypokineses
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
#Non-ischemic myocardial injury
Troponin elevation on initial presentation 0.036 since trended down, chest pain free, likely non-ischemic myocardial injury
#Hematuria on UA with moderate bacteria
#Recent history of hematuria
-Monitor hematuria and clots with routine bladder scan.
#History of Gastrointestinal Bleeding
#GERD
cont Protonix BID
#Hypertension
-Hold Losartan given hypotension
#CAD status PCI in 2023 on Brilinta
#Severe coronary arterial calcifications on CT Imaging
- Continue Atorvastatin BB
- Continue Brilinta and Eliquis
#HFpEF
- appears euvolemic at this time
-Daily weights, I's and O's
#Paroxysmal A-Fib / Flutter on outpatient Eliquis
- Continue Eliquis and ticagrelor
- cont BB
#CKD III ruled out
kidney function noted this hospitalization not consistent with CKDIII
#DM-II
-07/15/24 A1c 6.3 but not reliable with recent blood transfusions 06/2024
- sliding scale
- discontinued lantus
-cont Metformin (new)
-Farxiga started
#Psychiatric Disorder - Unspecified
- continue Abilify and divalproex
#Moderate Protein Calorie Malnutrition of Chronic Illness
Code status: Full code
DVT prophylaxis: Eliquis
I spent a total of 45 minutes with the patient or on the floor. More than 50% of this time involved counseling and coordination of care.
Anticipated Discharge: Within 24 hours
Subjective/Interval History
-
Date of Service: July 21, 2024
No acute distress. Appears comfortable at this time. Continues to endorse difficulty bringing up sputum. Stable respiratory status on room air.
Objective Data
-
Labs:
Laboratory Results
07/21/24
05:39
WBC 7.8
Hgb 8.5 L
Hct 26.6 L
Plt Count 183
Sodium Pending
Potassium Pending
Chloride Pending
Carbon Dioxide Pending
BUN Pending
Creatinine Pending
Glucose Pending
Calcium Pending
Vital Signs:
Vital Signs
Temp Pulse Resp BP Pulse Ox
97.8 F 93 18 95/62 98
07/20/24 23:00 07/21/24 05:45 07/20/24 23:00 07/21/24 05:45 07/20/24 23:00
I&O
07/19/24 07/20/24 07/21/24
06:59 06:59 06:59
Intake Total 480 / 480 660 / 660 1080 / 1080
Output Total 1650 / 1650 650 / 650 1000 / 1000
Balance -1170 / -1170 10 80 / 80
[2024-07-21 06:50] LABS: Blood Urea Nitrogen 28 mg/dl (9-20); Calcium 8.4 mg/dl (8.4-10.2); Carbon Dioxide 28 mmol/L (22-30); Chloride 109 mmol/L (98-107); Estimated Creatinine Clearance 80 ml/min; Glucose 178 mg/dl (70-99); Magnesium 1.7 mg/dl (1.6-2.3); Phosphorus 2.5 mg/dl (2.5-4.5); Potassium 4.1 mmol/L (3.5-5.1); Sodium 142 mmol/L (135-145); eGFR > 60.00
[2024-07-21 07:05] VITALS: BP 108/73
[2024-07-21 07:45] LABS: Glucose - Point of Care 183 mg/dl (70-99)
[2024-07-21] MEDS: DEPAKENE 125 MG PO ×2 (08:17→19:58)
[2024-07-21] MEDS: MUCINEX 1200 MG PO ×2 (08:18→19:57)
[2024-07-21] MEDS: BRILINTA 90 MG PO ×2 (08:18→19:59)
[2024-07-21] MEDS: GLUCOPHAGE 500 MG PO ×2 (08:18→18:11)
[2024-07-21] MEDS: ELIQUIS 5 MG PO ×2 (08:18→19:59)
[2024-07-21] MEDS: THIAMINE INJECTION 100 MG IV ×2 (08:18→19:59)
[2024-07-21] MEDS: FERROUS SULFATE ORAL LIQUID 300 MG PO (08:18)
[2024-07-21] MEDS: NSS (PRESERVATIVE FREE) 10 ML IV ×2 (08:19→20:00)
[2024-07-21] MEDS: FLOMAX 0.4 MG PO (08:19)
[2024-07-21] MEDS: PROTONIX IV 40 MG IV ×2 (08:19→19:59)
[2024-07-21] MEDS: NOVOLOG FLEXPEN-LOW RESISTANCE 1 UNITS SC ×3 (08:20→18:10)
[2024-07-21] MEDS: LAC HYDRIN, AM LACTIN LOTION 1 APPLIC TOPICAL ×3 (08:20→21:06)
[2024-07-21 09:54] VITALS: BMI 26.0
--- NOTE | 2024-07-21 11:40 | W.PN.ID1 ---
Date of Service
Date of Service: July 21, 2024
Today's Communication
Continue off abx.
Assessment / Plan
Ongoing aspiration / pharyngeal dysphagia
Pulmonary infiltrates/pneumonia
Leukocytosis; resolved
hypertension
ASCVD
Left Hemiparesis s/p CVA
GERD
Paroxysmal A-Fib / Flutter
CKD III
CHF
Recommendations:
WBC remains stable.
Blood cultures negative. Urine culture without growth.
Continue to observe off antibiotics with close clinical monitoring.
Follow white count and temperature curve.
Strict aspiration precautions.
����������������������������������������������������������
Chief Complaint
-: Pneumonia
Subjective / Review of Systems
Review of Systems: No Fever and No Chills
Vital Signs / Physical Exam
Vital Signs
Vital Signs
Temp Pulse Resp BP Pulse Ox
97.9 F 93 17 108/73 98
07/21/24 07:05 07/21/24 07:05 07/21/24 07:05 07/21/24 07:05 07/21/24 07:05
Physical Exam
Constitutional: No Acute Distress, Comfortable and Non-toxic
Eyes: Sclera Anicteric
Cardiovascular: S1/S2; Negative S3/S4
Pulmonary: Non Labored and Other (decreased BS in bases.)
Gastrointestinal: Soft, Non Tender and Non Distended
Extremities: Edema and Venous Insufficiency (LLE)
Musculoskeletal: Other (right BKA)
Neurological: Awake and Alert
Psychological: Calm
Objective Data
Lab Data
Lab Results
07/21/24 05:39
07/21/24 05:39
ESR 77 mm/hour (0-20) H 07/15/24 06:14
PT 19.1 Sec (11.4-14.6) H 07/15/24 06:14
INR 1.55 07/15/24 06:14
APTT 38.6 Sec (23.4-35.0) H 07/15/24 06:14
Estimated Creat Clear 80 ml/min 07/21/24 05:39
Lactic Acid 1.1 mmol/L (0.7-2.0) 07/15/24 02:25
Total Bilirubin 0.5 mg/dl (0.2-1.3) 07/15/24 12:36
AST 17 U/L (17-59) 07/15/24 12:36
ALT 15 U/L (0-50) 07/15/24 12:36
Alkaline Phosphatase 97 U/L (38-126) 07/15/24 12:36
Most recent labs reviewed.
Micro Results:
07/15/24 09:02 Blood Culture - Final
Blood/Venous No Growth - Final Report
07/15/24 08:30 Blood Culture - Final
Blood/Venous No Growth - Final Report
07/15/24 08:30 MRSA Screen - Final
Nose Staph aureus MRSA
07/14/24 22:29 Urine Culture - Final
Urine NO GROWTH
07/15/24 01:09 Influenza Types A & B (SUKHI) - Final
Nasal Swab Negative for Influenza A & B, NAAT
Negative results must be combined with clinical observations
and patient history.
Nucleic Acid Amplification test (NAAT)performed on the
[employer] platform.
Imaging:
07/15/24 CT chest: No evidence for PE. Extensive pneumonia in right lung. Slightly improved when compared to prior CT dated 05/02/2024. Pneumonia in left lung is also improved since prior CT. Mild subcarinal and left hilar adenopathy; likely
reactive.
07/14/2024 CXR : Extremely low lung volumes. Mild predominantly linear right basilar opacity suggesting subsegmental atelectasis and/or scarring.
[2024-07-21 11:45] LABS: Glucose - Point of Care 176 mg/dl (70-99)
--- NOTE | 2024-07-21 11:50 | CM ---
Updated clinical information sent to LTC facility [facility] pending physician assessment for return to facility. Patient will need ambulance transportation and IMM to be completed when appropriate. CM will continue to follow for discharge
planning needs.
Plan; return to SNF
[2024-07-21] MEDS: LOPRESSOR 50 MG PO ×3 (12:26→23:08)
[2024-07-21] MEDS: FARXIGA 10 MG PO (12:26)
[2024-07-21] MEDS: STERILE WATER FOR INJECTION IV ×3 (12:27→22:14)
[2024-07-21 15:05] VITALS: BP 101/81
[2024-07-21 17:03] LABS: Glucose - Point of Care 195 mg/dl (70-99)
[2024-07-21] MEDS: ABILIFY 10 MG PO (21:06)
[2024-07-21] MEDS: LIPITOR 40 MG PO (21:06)
[2024-07-21 21:56] LABS: Glucose - Point of Care 149 mg/dl (70-99)
[2024-07-21 23:00] VITALS: BP 125/80
[2024-07-22] MEDS: LOPRESSOR PO (06:31)
[2024-07-22 06:38] LABS: Hematocrit 26.5 % (39.0-52.0); Hemoglobin 8.6 g/dL (13.0-18.0); Mean Corp Hgb Conc. 32.5 g/dL (33.0-37.0); Mean Corpuscular Hgb 28.6 pg (27.0-31.0); Mean Platelet Volume 9.7 fL (7.4-10.4); Platelet Count 186 10^3/uL (130-400); Red Blood Cell Count 3.01 10^6/uL (4.70-6.10); Red Cell Dist. Width 14.4 % (11.5-14.5); White Blood Cell Count 8.9 10^3/uL (4.8-10.8)
[2024-07-22 06:59] LABS: Blood Urea Nitrogen 28 mg/dl (9-20); Calcium 8.4 mg/dl (8.4-10.2); Carbon Dioxide 27 mmol/L (22-30); Chloride 109 mmol/L (98-107); Estimated Creatinine Clearance 80 ml/min; Glucose 155 mg/dl (70-99); Magnesium 1.6 mg/dl (1.6-2.3); Phosphorus 2.5 mg/dl (2.5-4.5); Potassium 4.2 mmol/L (3.5-5.1); eGFR > 60.00
[2024-07-22 07:05] LABS: Sodium 141 mmol/L (135-145)
--- NOTE | 2024-07-22 07:31 | W.PN.HOSP.TC ---
Today's Communication/Plan
-
Discharge
Assessment / Plan
Assessment / Plan
Physical Exam
General: No acute distress, appears comfortable
HEENT: Normocephalic, Moist mucous membranes.
Respiratory: Clear to Auscultation Bilaterally
Cardiac: S1/S2 and Regular Rhythm
GI: Soft, Non Tender, Non Distended and Normal Bowel Sounds
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
Skin: Warm. Dry.
Neuro: AOx3 conversant coherent
Psych: calm cooperative
Assessment/Plan
69M afib Eliquis, CAD stent 2023 Brilinta, HFpEF, DM, HTN, hx CVA, GERD, from [facility] p/w AMS unresponsiveness due to stroke. Pt had recent hospitalization here past month for anemia, weakness, possible chronic hematuria. Received 2
units of blood and hemoglobin appeared to have been stable since. Outpt cystoscopy was recommended along with hold Eliquis/Brilinta since resumed. On current admission, patient was hypotensive but fluid responsive and CT of the head noted findings
most likely representing encephalomalacia/old infarction in the left posterior parietal-occipital region greater than the right occipital lobe. Possible superimposed small acute/subacute nonhemorrhagic infarct in the left posterior
parietal-occipital region was noted.
#Hypotension resolved
#Allergy to Penicillins
#Leukocytosis Likely Secondary to Bilateral Pneumonia (RT>LT) -- extensive right-sided pneumonia; left sided pneumonia has improved compared to months ago
#Likely aspiration pneumonia
#MRSA Positive
#Mild subcarinal and left hilar adenopathy -- probably reactive secondary to pneumonia.
-Initially admitted to ICU d/t hypotension but responded well to IVF, did not require pressors, subsequently downgraded to Tele
-Elevated Procal -- received empiric Vancomycin (MRSA positive) and Cefepime
-Overall clinically improved
-ID eval appreciated abx since completed, remains stable off abx
-outpt follow up CT Chest in 4 - 6 months with primary or pulmonary recommended
-COVID/Flu negative
-Blood cultures NGTD
-Acapella, mucinex, completed VEST therapy
#Severe pharyngeal dysphagia on VSE on 07/15/24
-Dobhoff tube placed complicated with clogging issues. Tube was since discontinued 07/17
-Repeat VSE 07/18 however noted improvement in swallow reduced aspiration risk pureed with moderate thick liquid (honey thick)
-Patient also expressed that he would not want dobhoff tube feeding again even if indicated (though he would be willing to consider PEG if necessary)
-trial pureed w/ honey thick liquid started, continued to improve, per speech eval, diet advanced to mince moist w/ honey thick liquids, tolerating well.
#Toxic Metabolic Encephalopathy Secondary to acute-subacute stroke versus infectious process
#Left Hemiparesis with history of CVA
-patient since improved, mental status baseline
-Head CT: No acute intracranial hemorrhage, encephalomalacia/old infarction in the left posterior parietal-occipital region greater than the right occipital lobe; cannot entirely exclude superimposed small acute/subacute nonhemorrhagic infarct in
the left posterior parietal-occipital region -- per neurology 4 strokes on patient's neuroimaging
-Concern is for possible subacute stroke in the setting of anticoagulation hold (previously held for GI bleed and hematuria) since discharge from hospital.
-Urine culture with no growth
-Neurology consult appreciated: no further stroke workup indicated, continue on Brilinta and Eliquis
#Right ventricular dilation and hypokinesis
-No PE on CT Chest
-Echo findings with LVEF 55-60% but RT ventricular dilation and hypokineses
-Cardiology consult appreciated no evidence of right-sided heart failure on exam, no acute workup needed, should follow up with his [facility]'s spike machine heater
#Non-ischemic myocardial injury
Troponin elevation on initial presentation 0.036 since trended down, chest pain free, likely non-ischemic myocardial injury
#Hematuria on UA with moderate bacteria
#Recent history of hematuria
recent urine culture no growth
#History of Gastrointestinal Bleeding
#GERD
cont Protonix BID
#Hypertension
-cont Metprolol, on short acting during hospitalization, ok to resume home long acting on discharge
-Held Losartan given hypotension, consistently normotensive without, discontinuing on discharge
#CAD status PCI in 2023 on Brilinta
#Severe coronary arterial calcifications on CT Imaging
- Continue Atorvastatin BB
- Continue Brilinta and Eliquis
#HFpEF
- appears euvolemic at this time
-Daily weights, I's and O's
#Paroxysmal A-Fib / Flutter on outpatient Eliquis
- Continue Eliquis and ticagrelor
- cont BB
#DM-II
-07/15/24 A1c 6.3 but not reliable with recent blood transfusions 06/2024
- sliding scale
- discontinued lantus
-cont Metformin (new)
-cont Farxiga (new)
-carb controlled diet.
-Sugars well controlled at this time with minimal need for insulin correction.
#Psychiatric Disorder - Unspecified
- continue home Abilify and divalproex
#Moderate Protein Calorie Malnutrition of Chronic Illness
Code status: Full code
DVT prophylaxis: Eliquis
Medically stable for discharge back to [facility] with outpatient follow up recommendations.
Discussed with patient and patient's Carolyn
Total Time Preparing Discharge __40 minutes including examination of the patient, summary of the hospital stay, instructions for continuing care to all relevant caregivers; and preparation of discharge records, prescriptions, and referral
forms if necessary.
Anticipated Discharge: Today
Subjective/Interval History
-
Date of Service: July 22, 2024
Seen and examined at bedside in no acute distress. Sitting up comfortably in bed. Denies new acute issues. Overall reports feeling well. Looking forward to returning to [facility].
Objective Data
-
Labs:
Laboratory Results
07/22/24
06:12
WBC 8.9
Hgb 8.6 L
Hct 26.5 L
Plt Count 186
Sodium 141
Potassium 4.2
Chloride 109 H
Carbon Dioxide 27
BUN 28 H
Creatinine 1.1
Glucose 155 H
Calcium 8.4
Vital Signs:
Vital Signs
Temp Pulse Resp BP Pulse Ox
97.7 F 97 14 125/80 99
07/21/24 23:00 07/21/24 23:08 07/21/24 23:00 07/21/24 23:08 07/21/24 23:00
I&O
07/21/24 07/22/24 07/23/24
06:59 06:59 06:59
Intake Total 1080 / 1080 600 / 600 240 / 240
Output Total 1000 / 1000 300 / 300 650 / 650
Balance 80 / 80 300 / 300 -410 / -410
[2024-07-22 07:42] VITALS: BP 120/81
[2024-07-22 07:49] LABS: Glucose - Point of Care 153 mg/dl (70-99)
[2024-07-22] MEDS: THIAMINE INJECTION 100 MG IV (08:08)
[2024-07-22] MEDS: ELIQUIS 5 MG PO (08:08)
[2024-07-22] MEDS: FLOMAX 0.4 MG PO (08:08)
[2024-07-22] MEDS: NSS (PRESERVATIVE FREE) 10 ML IV (08:08)
[2024-07-22] MEDS: DEPAKENE 125 MG PO (08:08)
[2024-07-22] MEDS: FERROUS SULFATE ORAL LIQUID 300 MG PO (08:08)
[2024-07-22] MEDS: PROTONIX IV 40 MG IV (08:09)
[2024-07-22] MEDS: FARXIGA 10 MG PO (08:09)
[2024-07-22] MEDS: GLUCOPHAGE 500 MG PO (08:09)
[2024-07-22] MEDS: MUCINEX 1200 MG PO (08:09)
[2024-07-22] MEDS: NOVOLOG FLEXPEN-LOW RESISTANCE 1 UNITS SC ×2 (08:09→11:51)
[2024-07-22] MEDS: BRILINTA 90 MG PO (08:09)
[2024-07-22] MEDS: LAC HYDRIN, AM LACTIN LOTION 1 APPLIC TOPICAL (08:10)
--- NOTE | 2024-07-22 10:22 | W.PN.ID1 ---
Date of Service
Date of Service: July 22, 2024
Today's Communication
Continue off abx.
Assessment / Plan
Ongoing aspiration / pharyngeal dysphagia
Pulmonary infiltrates/pneumonia
Leukocytosis; resolved
hypertension
ASCVD
Left Hemiparesis s/p CVA
GERD
Paroxysmal A-Fib / Flutter
CKD III
CHF
Recommendations:
WBC remains stable.
Blood cultures negative. Urine culture without growth.
Continue to observe off antibiotics with close clinical monitoring.
Follow white count and temperature curve.
Strict aspiration precautions.
����������������������������������������������������������
Chief Complaint
-: Pneumonia
Subjective / Review of Systems
Review of Systems: No Fever and No Chills
Vital Signs / Physical Exam
Vital Signs
Vital Signs
Temp Pulse Resp BP Pulse Ox
98.3 F 93 20 120/81 98
07/22/24 07:42 07/22/24 07:42 07/22/24 07:42 07/22/24 07:42 07/22/24 07:42
Physical Exam
Constitutional: No Acute Distress, Comfortable and Non-toxic
Eyes: Sclera Anicteric
Pulmonary: Non Labored
Gastrointestinal: Non Distended
Musculoskeletal: Other (right BKA)
Neurological: Awake and Alert
Psychological: Calm
Objective Data
Lab Data
Lab Results
07/22/24 06:12
07/22/24 06:12
ESR 77 mm/hour (0-20) H 07/15/24 06:14
PT 19.1 Sec (11.4-14.6) H 07/15/24 06:14
INR 1.55 07/15/24 06:14
APTT 38.6 Sec (23.4-35.0) H 07/15/24 06:14
Estimated Creat Clear 80 ml/min 07/22/24 06:12
Lactic Acid 1.1 mmol/L (0.7-2.0) 07/15/24 02:25
Total Bilirubin 0.5 mg/dl (0.2-1.3) 07/15/24 12:36
AST 17 U/L (17-59) 07/15/24 12:36
ALT 15 U/L (0-50) 07/15/24 12:36
Alkaline Phosphatase 97 U/L (38-126) 07/15/24 12:36
Most recent labs reviewed.
Micro Results:
07/15/24 09:02 Blood Culture - Final
Blood/Venous No Growth - Final Report
07/15/24 08:30 Blood Culture - Final
Blood/Venous No Growth - Final Report
07/15/24 08:30 MRSA Screen - Final
Nose Staph aureus MRSA
07/14/24 22:29 Urine Culture - Final
Urine NO GROWTH
07/15/24 01:09 Influenza Types A & B (SUKHI) - Final
Nasal Swab Negative for Influenza A & B, NAAT
Negative results must be combined with clinical observations
and patient history.
Nucleic Acid Amplification test (NAAT)performed on the
[employer] Access platform.
Imaging:
07/15/24 CT chest: No evidence for PE. Extensive pneumonia in right lung. Slightly improved when compared to prior CT dated 05/02/2024. Pneumonia in left lung is also improved since prior CT. Mild subcarinal and left hilar adenopathy; likely
reactive.
07/14/2024 CXR : Extremely low lung volumes. Mild predominantly linear right basilar opacity suggesting subsegmental atelectasis and/or scarring.
[2024-07-22 11:28] LABS: Glucose - Point of Care 163 mg/dl (70-99)
--- NOTE | 2024-07-22 11:31 | CM ---
Addendum entered by Hodan Barrett 07/22/24 11:49:
Ambulance transport requested for 3PM pick up operator to return to [facility].
Original Note:
Pt cleared for discharge today back to [facility].
CM spoke with Andreea, CLinical Liaison with [facility], to coordinate pt's return to LTC. Pt accepted for return to [facility] today via Ambulance.
Transport pick up operator form and [facility] completed.
PLAN: Return to [facility] when medically stable
Report #: [phone]
Fax #: [phone]
[2024-07-22] MEDS: STERILE WATER FOR INJECTION IV (11:52)
[2024-07-22] MEDS: LOPRESSOR 50 MG PO (11:54)
--- NOTE | 2024-07-22 13:59 | W.DCSUMMARY ---
Discharge Summary
Discharge Data
Date of Admission: 07/15/24
Date of Discharge: 07/22/24
-
Pending Results: No
Discharge Plan
-
Patient Disposition: Assisted/SNF
Discharge Diagnosis/Procedures: Hypotension possibly iatrogenic
Aspiration pneumonia
MRSA Positive
Mild subcarinal and left hilar adenopathy noted on CT (likely reactive to pneumonia(
Dysphagia
Toxic Metabolic Encephalopathy Secondary to acute-subacute stroke versus Pneumonia
History Stroke
Right ventricular dilation and hypokinesis noted on ECHO without clinical evidence right sided heart failure (follow up with patient's laundry worker recommended)
History Hypertension
History Coronary Artery Disease status post stent
Heart Failure with Preserved Ejection Fraction
Paroxysmal Atrial Fibrillation
Diabetes Type II recent 07/15/24 A1c 6.3 but not reliable with recent blood transfusions 06/2024
Moderate Protein Calorie Malnutrition of Chronic Illness
Condition: Fair
Diet: Diabetic, Carb Controlled
Additional Diets: Mince and Moist diet (IDDSI 5) with moderately thick liquid (honey thick)
Activity: As tolerated
Driving Restrictions: No driving
Bathing Restrictions: None
Blood Work: Please repeat A1c with primary care provider in 3 months of discharge to follow up Diabetes
Others Tests: Repeat CT chest with primary care provider in 4-6 months to follow up Hilar Lymphadenopathy likely reactive to Pneumonia
Other Services: PT, OT and ST
Activity Restrictions/Additional Instructions:
Please follow up with your primary care provider in 1 week of discharge, your laundry worker in 1 month of discharge, and neurologist in 1 month of discharge.
Farxiga and metformin have been started for diabetes. Lantus has been discontinued, no longer necessary at this time.
Losartan has also been discontinued due to hypotension, consistently normotensive during stay with aforementioned medication.
Oxycodone has been discontinued as patient has not required this medication during stay.
Please take medications as prescribed/recommended and follow up with primary care provider and/or other healthcare provider involved in your care for refills and/or further adjustment to your medication regimen as necessary.
Referrals:
Sammy Hayes MD [Active] - in one month
UNKNOWN - PT DOES,NOT KNOW [Family Provider] -
Prescriptions:
New
dapagliflozin propanediol 10 mg Tablet
10 mg PO DAILY Qty: 30 0RF
metformin 500 mg Tablet
500 mg PO BID@0800,1700 Qty: 60 0RF
guaifenesin 600 mg Tablet Extended Release 12hr
1,200 mg PO Q12 7 Days Qty: 14 0RF
Continued
atorvastatin 40 mg Tablet
40 mg PO HS
acetaminophen [Tylenol] 325 mg Tablet
650 mg PO Q4HPRN PRN (Reason: Temp > 100, mild pain)
ammonium lactate [AmLactin] 12 % Lotion
1 applic TOPICAL TID
thiamine HCl (vitamin B1) 100 mg Tablet
200 mg PO DAILY
pantoprazole 40 mg Tablet,Delayed Release (Dr/Ec)
40 mg PO BID
fluticasone propionate 50 mcg/actuation [place],Suspension
1 spray INTRANASAL DAILYPRN PRN (Reason: ALLERGIES)
insulin lispro 100 unit/mL Insulin Pen
2 - 10 sliding scale dose SC AC
Rx Instructions:
150-200=2 UNITS; 201-250=4 UNITS; 251-300= 6 UNITS; 301-350= 8 UNITS; 351-400= 10 UNITS
ticagrelor 90 mg Tablet
90 mg PO BID
magnesium hydroxide [Milk of Magnesia] 400 mg/5 mL Suspension
2,400 mg PO DAILYPRN PRN (Reason: IF NO BM BY 3RD DAY)
bisacodyl [Dulcolax (bisacodyl)] 10 mg Suppository
10 mg MT DAILYPRN PRN (Reason: IF NO BM AFTR MOM)
metoprolol succinate 100 mg Tablet Extended Release 24 Hr
100 mg PO BID Qty: 0 0RF
tamsulosin 0.4 mg Capsule
0.4 mg PO DAILY Qty: 0 0RF
divalproex 125 mg Tablet,Delayed Release (Dr/Ec)
125 mg PO BID
Eliquis 5 mg Tablet
5 mg PO BID
ferrous sulfate 325 mg (65 mg iron) Tablet
325 mg PO DAILY
aripiprazole [Abilify] 10 mg Tablet
10 mg PO HS
loperamide [Imodium A-D] 2 mg Tablet
2 mg PO Q6HPRN PRN (Reason: diarrhea)
Fleet Enema 19-7 gram/118 mL Enema
118 ml MT DAILYPRN PRN (Reason: if dulcolax is ineffective after 24hrs)
Discontinued
losartan 50 mg Tablet
50 mg PO DAILY
oxycodone 5 mg Tablet
5 mg PO BIDPRN PRN (Reason: severe pains) Qty: 7 0RF
insulin glargine 100 unit/mL (3 mL) Insulin Pen
5 unit SC HS Qty: 0 0RF
Discharge Orders:
Discharge Patient (As Directed); Ordered 07/22/24
Ordered By: Marisel King
Discharge Date and Time
Print Language: POLISH
[2024-07-22 14:57] VITALS: BP 120/83
== END 2024-07-22 15:28 | DRG 177 ==
LOC: 3 WEST ACU 00:42
PROVIDERS: Hospitalist; Internal Medicine Gastroenterology; Nurse Practitioner Family; Radiology Diagnostic Radiology; ADMITTING PHYSICIAN Internal Medicine; ATTENDING PHYSICIAN Internal Medicine; CONSULT PHYSICIAN Internal Medicine; CONSULT PHYSICIAN Internal Medicine Cardiovascular Disease; CONSULT PHYSICIAN Internal Medicine Infectious Disease; CONSULT PHYSICIAN Psychiatry & Neurology Clinical Neurophysiology; EMERGENCY PHYSICIAN Student in an Organized Health Care Education/Training Program
PROC: 0DH67UZ Insertion of Feeding Device into Stomach, Via Natural or Artificial Opening (ICD-10-PCS; 2024-07-15)
PROC: 0D20XUZ Change Feeding Device in Upper Intestinal Tract, External Approach (ICD-10-PCS; 2024-07-16)
DX: J69.0 Pneumonitis due to inhalation of food and vomit (principal); G92.8 Other toxic encephalopathy; I48.92 Unspecified atrial flutter; I69.354 Hemiplegia and hemiparesis following cerebral infarction affecting left non-dominant side; I50.32 Chronic diastolic (congestive) heart failure; T85.598A Other mechanical complication of other gastrointestinal prosthetic devices, implants and grafts, initial encounter; I5A Non-ischemic myocardial injury (non-traumatic); E44.0 Moderate protein-calorie malnutrition; I95.89 Other hypotension; J18.9 Pneumonia, unspecified organism; I25.10 Atherosclerotic heart disease of native coronary artery without angina pectoris; I48.0 Paroxysmal atrial fibrillation; K21.9 Gastro-esophageal reflux disease without esophagitis; E11.65 Type 2 diabetes mellitus with hyperglycemia; I11.0 Hypertensive heart disease with heart failure; D63.1 Anemia in chronic kidney disease; E78.00 Pure hypercholesterolemia, unspecified; R13.13 Dysphagia, pharyngeal phase; Z95.5 Presence of coronary angioplasty implant and graft; Z89.511 Acquired absence of right leg below knee; Z88.2 Allergy status to sulfonamides; Z88.1 Allergy status to other antibiotic agents; Z88.0 Allergy status to penicillin; Z79.899 Other long term (current) drug therapy; Z79.4 Long term (current) use of insulin; Z79.01 Long term (current) use of anticoagulants; Z79.02 Long term (current) use of antithrombotics/antiplatelets; Z22.322 Carrier or suspected carrier of Methicillin resistant Staphylococcus aureus; Z11.52 Encounter for screening for COVID-19; I25.2 Old myocardial infarction; Y73.1 Therapeutic (nonsurgical) and rehabilitative gastroenterology and urology devices associated with adverse incidents; Z68.24 Body mass index [BMI] 24.0-24.9, adult
CPT/HCPCS: 70450; 71045; 71275; 74018; 74230; 80048; 80053; 80061; 80202; 81003; 81015; 82962; 83036; 83605; 83735; 84100; 84145; 84484; 85025; 85027; 85610; 85652; 85730; 86850; 86900; 86901; 87040; 87070; 87086; 87147; 87502; 87811; 92526; 92610; 92611; 93005; 93306; 94669; 99285; Q9967